=== PATIENT | female | born 1970 | race Caucasian/White ===

== ENCOUNTER 2017-03-20 22:02 | Emergency (ER) | payer MEDICAID, SELFPAY | END 2017-03-20 23:38 | disposition home or self-care (01) | PROVIDERS: Emergency Provider Emergency Medicine; Family Provider Family Medicine; Visit Provider Emergency Medicine | DX: R07.9 Chest pain, unspecified (principal); R06.02 Shortness of breath; Z88.8 Allergy status to other drugs, medicaments and biological substances; I34.1 Nonrheumatic mitral (valve) prolapse | CPT/HCPCS: 71020; 80053; 82550; 82553; 84484; 85025; 93005; 99283 ==

== ENCOUNTER → 2017-05-29 17:13 | Outpatient (CLI) | payer MEDICAID, SELFPAY ==
--- NOTE | 2017-05-29 | XR_ITS ---
XR shoulder RT min 2V HISTORY: ITS.REASON: PAIN IN RT SHOULDER ORDERING PHYSICIAN: Juan Turner MD PATIENT AGE: 47 years COMPARISON: None FINDINGS: No fracture or dislocation. No lytic or blastic change. There is subacromial stenosis which may result in impingement symptomatology. No significant arthritic change. IMPRESSION: Subacromial stenosis which may result in impingement symptomatology upon the rotator cuff. This may be confirmed with MRI if clinically warranted.
--- NOTE | 2017-05-29 | XR_ITS ---
XR foot RT min 3V HISTORY: Posttraumatic pain ITS.REASON: INJURY FROM FALL ORDERING PHYSICIAN: Juan Turner MD PATIENT AGE: 47 years COMPARISON: None FINDINGS: No fracture or dislocation. No lytic or blastic change. There is normal mineralization.. The joint spaces are well-preserved. No significant degenerative/arthritic changes. No erosive changes evident. IMPRESSION: Negative, no acute finding
== END ==
PROVIDERS: PCP Family Medicine; Visit Provider Family Medicine
DX: M79.674 Pain in right toe(s) (principal); M25.511 Pain in right shoulder
CPT/HCPCS: 73030; 73630

== ENCOUNTER 2017-06-15 18:20 | Emergency (ER) | payer MEDICAID, SELFPAY ==
[2017-06-15 19:53] VITALS: BP 160/70; PULSE 78; RESP 18; TEMP 36.6; O2SAT 98; BMI 47.3
[2017-06-15 19:59] LABS: UTC Strep Screen (Rapid) Negative (Negative)
--- NOTE | 2017-06-15 20:55 | HMH.EDUTC ---
[facility] [place] Impression: Eustachian tube dysfunction Qualifiers: Laterality: left Qualified Code(s): H69.82 - Other specified disorders of Eustachian tube, left ear Disposition: Home, Self-Care Condition on Discharge: Good Instructions: DI for Eustachian Tube Dysfunction-Adult Additional Instructions: Sleep elevated gargle warm salt water warm fluids to drink Start claritin, zyrtec or francine over the counter to help with your known allergies and the fluid behind the ear drum Start Flonase 2 sprays each nostril daily to help open the eustachian tube * * Your throat swab was sent for culture. Those results are typically sent to your primary care. Be sure to follow up in 2-3 days if no improvement so they can review those results and treat if necessary. If you don't have primary care, I recommend you get one but in the mean time, you will have to return to a walk in clinic. Referrals: Juan Turner MD [Primary Care Provider] - (For any new, worsening or persisting symptoms. May take 5-7 days to notice improvement.) Time of Disposition: 21:00 Medical Decision Making Vital Signs: 06/15/17 19:53 Temperature 98 F Temperature Source Temporal Artery Scan Pulse Rate [Brachial] 78 Respiratory Rate 18 Blood Pressure [Right Arm] 160/70 Blood Pressure Mean [Right Arm] 100 Blood Pressure Source [Right Arm] Automatic Cuff Blood Pressure Position [Right Arm] Sitting 02 Sat by Pulse Oximetry 98 - Lab Data Lab results reviewed: Yes: I reviewed the patient's lab results. Lab Results 06/15/17 19:49: Strep Scn Rapid Clinic Negative Orders (Tests/Meds): ORDERS Category Date Time Status Strep Screen Confirmation Stat Micro 06/15/17 19:49 Received - Emanuel Inquiry Pt receiving controlled substance: No [facility] [place] - General Stated complaint: left ear pain,cantor Time Seen by Provider: 06/15/17 20:55 Mode of Arrival: Ambulatory Source of Information: Patient Limitations: No Limitations Description of Symptoms (Recalled from Triage Doc. by RN): H/A, SORE THROAT, FEVER LT EAR PAIN SINCE MONDAY HEENT Symptoms (Recalled from RN notes): Yes Resp Symptoms (Recalled from RN notes): No Skin Symptoms (Recalled from RN notes): No MS Symptoms (Recalled from RN notes): No Functional Status (Recalled from RN notes): NA - History of Present Illness Provider Complaint: c/o headache, sore throat only on left and ear pain only on left x 2 days. hx of allergies but doesn't take medication like I know I should . Hasn't taken or tried anything for symptoms. Worse at night. Ear pain worse at times with swallowing or chewing. No known sick contacts. No fever. - Related Data Home Medications Medication Instructions Recorded Confirmed No Known Home Medications [No 06/15/17 06/15/17 Known Home Medications] Allergies Allergy/AdvReac Type Severity Reaction Status Date / Time prednisone [PREDNISONE] Allergy Unknown Unverified 03/28/17 15:31 - Worker's Comp Is this a Worker's Comp case?: No [facility] History I have reviewed the patient's past medical history: Yes Other Medical History: Reports: Other (allergies) Laterality Cases: Bilateral: Myringotomy (Ear Tubes) Other Surgeries: Yes: Tubal Ligation Comment: cholecystectomy, tubal ligation reversed - Social History Alcohol Intake: never - Psychiatric History Expresses thoughts of harming self/others: None Suicide Plan Description: No Plan ROS Obtained: Yes Systems reviewed as appropriate & no additional complaints - Constitutional Constitutional: Denies body ache, Denies chills, Denies fatigue, Denies fever(s), Denies poor appetite - Eyes Eyes: Denies eye discharge, Denies itchy eyes - ENT Ears, Nose, Mouth, and Throat: Reports as per HPI, Denies difficulty swallowing, Denies ear discharge, Denies hearing loss, Reports nasal congestion, Reports nasal discharge, Reports post nasal drip, Denies throat swelling - Cardiovascular Cardiovascul
--- NOTE | 2017-06-15 20:58 | ED_ITS ---
[facility] – [place] Disposition Clinical Impression: Eustachian tube dysfunction Qualifiers: Laterality: left Qualified Code(s): H69.82 - Other specified disorders of Eustachian tube, left ear Disposition: Home, Self-Care Condition on Discharge: Good Instructions: DI for Eustachian Tube Dysfunction-Adult Additional Instructions: Sleep elevated gargle warm salt water warm fluids to drink Start claritin, zyrtec or francine over the counter to help with your known allergies and the fluid behind the ear drum Start Flonase 2 sprays each nostril daily to help open the eustachian tube * * Your throat swab was sent for culture. Those results are typically sent to your primary care. Be sure to follow up in 2-3 days if no improvement so they can review those results and treat if necessary. If you don't have primary care , I recommend you get one but in the mean time, you will have to return to a walk in clinic. Referrals: Juan Turner MD [Primary Care Provider] - (For any new, worsening or persisting symptoms. May take 5-7 days to notice improvement.) Time of Disposition: 21:00 Medical Decision Making Vital Signs: 06/15/17 19:53 Temperature 98 F Temperature Source Temporal Artery Scan Pulse Rate [Brachial] 78 Respiratory Rate 18 Blood Pressure [Right Arm] 160/70 Blood Pressure Mean [Right Arm] 100 Blood Pressure Source [Right Arm] Automatic Cuff Blood Pressure Position [Right Arm] Sitting 02 Sat by Pulse Oximetry 98 - Lab Data Lab results reviewed: Yes: I reviewed the patient's lab results. Lab Results 06/15/17 19:49: Strep Scn Rapid Clinic Negative Orders (Tests/Meds): ORDERS Category Date Time Status Strep Screen Confirmation Stat Micro 06/15/17 19:49 Received - Emanuel Inquiry Pt receiving controlled substance: No [facility] – [place] HPI - General Stated complaint: left ear pain,cantor Time Seen by Provider: 06/15/17 20:55 Mode of Arrival: Ambulatory Source of Information: Patient Limitations: No Limitations Description of Symptoms (Recalled from Triage Doc. by RN): H/A, SORE THROAT, FEVER LT EAR PAIN SINCE MONDAY HEENT Symptoms (Recalled from RN notes): Yes Resp Symptoms (Recalled from RN notes): No Skin Symptoms (Recalled from RN notes): No MS Symptoms (Recalled from RN notes): No Functional Status (Recalled from RN notes): NA - History of Present Illness Provider Complaint: c/o headache, sore throat only on left and ear pain only on left x 2 days. hx of allergies but doesn't take medication like I know I should . Hasn't taken or tried anything for symptoms. Worse at night. Ear pain worse at times with swallowing or chewing. No known sick contacts. No fever. - Related Data Home Medications Medication Instructions Recorded Confirmed No Known Home Medications [No 06/15/17 06/15/17 Known Home Medications] Allergies Allergy/AdvReac Type Severity Reaction Status Date / Time prednisone [PREDNISONE] Allergy Unknown Unverified 03/28/17 15:31 - Worker's Comp Is this a Worker's Comp case?: No [facility] History I have reviewed the patient's past medical history: Yes Other Medical History: Reports: Other (allergies) Laterality Cases: Bilateral: Myringotomy (Ear Tubes) Other Surgeries: Yes: Tubal Ligation Comment: cholecystectomy, tubal ligation reversed - Social History Alcohol Intake: never - Psychia
[2017-06-15 21:00] VITALS: BP 160/70; PULSE 78; RESP 18; TEMP 36.6; O2SAT 98
== END 2017-06-15 21:01 | disposition home or self-care (01) ==
PROVIDERS: Emergency Provider Nurse Practitioner Family; PCP Family Medicine
DX: H69.82 Other specified disorders of Eustachian tube, left ear (principal); R51 Headache
CPT/HCPCS: 87880; 99202

== ENCOUNTER → 2018-05-17 15:49 | Outpatient (CLI) | payer MEDICAID, SELFPAY ==
--- NOTE | 2018-05-17 16:03 | MM_ITS ---
MM Dig screening mamm BI w/CAD ORDERING PHYSICIAN : GERARDO Wright PATIENT AGE: 48 years GENDER: Female COMPARISON: April INDICATION: Routine screening mammogram. 48-year-old. No hormones. No new complaints. Family history. Aunt breast cancer. TECHNIQUE: Standard CC and MLO images were obtained. R2 CAD reviewed. FINDINGS: Generalized fatty replacement. Low-density breast. . No new areas of concern. No dominant mass nor suspicious calcifications in either breast. RIGHT BREAST:No significant new areas of concern The small nodular density deep lateral right breast measures 4.25 mm in size. This measures the same as on previous studies. LEFT BREAST:No significant new areas of concern Again the intramammary lymph nodes the deep axillary tail the left breast are observed but if not changed significant since studies dating back to 2012. Follow-up in one year recommended & adequate IMPRESSION: ...... No significant new findings. Bilateral follow-up in one year recommended. Low-density breast. Stable small intramammary nodes deep breast bilaterally BI-RADS Category: 2 Benign Finding(s) RECOMMENDED FOLLOW-UP: 1YR 1 YEAR FOLLOW-UP (A letter has been sent to the patient regarding results of the study.)
== END ==
PROVIDERS: PCP Physician Assistant; Visit Provider Physician Assistant
DX: Z12.31 Encounter for screening mammogram for malignant neoplasm of breast (principal)
CPT/HCPCS: 77067

== ENCOUNTER → 2018-10-17 16:41 | Outpatient (CLI) | payer MEDICAID, SELFPAY ==
--- NOTE | 2018-10-17 16:45 | XR_ITS ---
EXAM: XR lumbar spine min 4V HISTORY: ITS.REASON: ACUTE LOW BACK PAIN ORDERING PHYSICIAN: GERARDO Wright PATIENT AGE: 48 years COMPARISON: None FINDINGS: Normal alignment. No fracture or dislocation. No lytic or blastic change. There are mild degenerative changes with in plate osteophytes and slight decrease in the disc space at L2-L3 and L3-L4. There are bilateral tubal ligation clips. Unremarkable appearing SI joints IMPRESSION: Mild degenerative changes, no acute finding
== END ==
PROVIDERS: PCP Physician Assistant; Visit Provider Physician Assistant
DX: M54.5 Low back pain (principal)
CPT/HCPCS: 72110

== ENCOUNTER → 2018-10-23 12:53 | Outpatient (CLI) | payer MEDICAID, SELFPAY ==
--- NOTE | 2018-10-23 12:56 | US_ITS ---
US transvaginal HISTORY: ITS.REASON: IRREGULAR PERIODS ORDERING PHYSICIAN: GERARDO Wright PATIENT AGE: 48 years Comparison: None FINDINGS: The uterus is 9 x 4.7 x 5.7 cm. Endometrium is thickened at 14 mm. No uterine mass evident. The left ovary is 2.4 x 1.8 cm and contains a 1.7 cm cyst. Right ovary is unremarkable at 2.4 x 1.4 cm. No cul-de-sac fluid. IMPRESSION: Bulky uterus with thickened endometrium
== END ==
PROVIDERS: PCP Physician Assistant; Visit Provider Physician Assistant
DX: N92.6 Irregular menstruation, unspecified (principal)
CPT/HCPCS: 76830

== ENCOUNTER → 2018-11-21 17:23 | Outpatient (CLI) | payer MEDICAID, SELFPAY ==
[2018-11-21 17:59] LABS: Basophils % 0.4 % (0.1-2.0); Eosinophils # 0.1 K/mm3 (0.0-0.4); Eosinophils % 1.7 % (0.1-12.0); Hematocrit 41.1 % (37.0-47.0); Hemoglobin 13.3 g/dL (12.2-16.2); Lymphocytes # 2.4 K/mm3 (0.7-4.5); Lymphocytes % 31.2 % (10-50); Mean Corpuscular HGB Conc 32.3 g/dL (31.8-35.4); Mean Corpuscular Hemoglobin 27.5 pg (27.0-31.2); Mean Corpuscular Volume 85.1 fl (81-99); Mean Platelet Volume 6.5 fl (7.4-10.4); Monocytes # 0.3 K/mm3 (0.1-1.0); Neutrophils # 4.8 K/mm3 (1.8-7.8); Neutrophils % 62.7 % (37.0-80.0); Platelet Count 324 K/mm3 (142-424); Red Blood Count 4.83 M/mm3 (4.20-5.40); Red Cell Distribution Width 13.7 % (11.5-17.5); White Blood Count 7.6 K/mm3 (4.8-10.8)
[2018-11-21 19:44] LABS: HCG Qualitative, Serum Negative (Negative)
[2018-11-21 19:54] LABS: Anion Gap 12.1 mEq/L (5-15); Blood Urea Nitrogen 19 mg/dL (7-18); Calcium 9.1 mg/dL (8.5-10.1); Carbon Dioxide 29 mmol/L (21.0-32.0); Chloride 102 mmol/L (98-107); Creatinine,Serum 0.74 mg/dL (0.55-1.02); Estimated Glomerular Filt Rate 84 ml/min (>60); GFR (African American) 102 ML/MIN (>60); Glucose 79 mg/dL (74-106); Potassium 4.1 mmoL/L (3.5-5.1); Sodium 139 mmol/L (136-145); T4 (Thyroxine) 8.9 ug/dl (4.7-13.3); Thyroid Stimulating Hormone 2.65 uIU/ml (0.358-3.740); Triiodothryronine (T3) Uptake 34 % (31-39)
== END ==
PROVIDERS: Visit Provider Nurse Practitioner Obstetrics & Gynecology
DX: N92.0 Excessive and frequent menstruation with regular cycle (principal); R10.2 Pelvic and perineal pain; R53.82 Chronic fatigue, unspecified
CPT/HCPCS: 36415; 80048; 84436; 84443; 84479; 84703; 85025

== ENCOUNTER → 2018-12-26 11:17 | Outpatient (CLI) | payer MEDICAID, SELFPAY ==
[2018-12-26 11:30] LABS: Basophils % 0.6 % (0.1-2.0); Eosinophils # 0.2 K/mm3 (0.0-0.4); Eosinophils % 2.6 % (0.1-12.0); Hemoglobin 13.9 g/dL (12.2-16.2); Lymphocytes # 2.3 K/mm3 (0.7-4.5); Lymphocytes % 34.8 % (10-50); Mean Corpuscular HGB Conc 32.3 g/dL (31.8-35.4); Mean Corpuscular Hemoglobin 27.6 pg (27.0-31.2); Mean Corpuscular Volume 85.4 fl (81-99); Mean Platelet Volume 6.7 fl (7.4-10.4); Monocytes # 0.2 K/mm3 (0.1-1.0); Monocytes % 3.5 % (1.7-9.3); Neutrophils # 3.9 K/mm3 (1.8-7.8); Neutrophils % 58.4 % (37.0-80.0); Platelet Count 328 K/mm3 (142-424); Red Blood Count 5.03 M/mm3 (4.20-5.40); Red Cell Distribution Width 13.2 % (11.5-17.5); White Blood Count 6.7 K/mm3 (4.8-10.8)
[2018-12-26 12:39] LABS: Urine Pregnancy, HCG Qual. Negative (Negative)
[2018-12-26 12:50] LABS: Anion Gap 10.6 mEq/L (5-15); Blood Urea Nitrogen 13 mg/dL (7-18); Calcium 9.7 mg/dL (8.5-10.1); Carbon Dioxide 32 mmol/L (21.0-32.0); Chloride 100 mmol/L (98-107); Creatinine,Serum 0.69 mg/dL (0.55-1.02); Estimated Glomerular Filt Rate 92 ml/min (>60); GFR (African American) 111 ML/MIN (>60); Glucose 91 mg/dL (74-106); Potassium 4.6 mmoL/L (3.5-5.1); Sodium 138 mmol/L (136-145)
== END ==
PROVIDERS: Visit Provider Nurse Practitioner Obstetrics & Gynecology
DX: Z01.818 Encounter for other preprocedural examination (principal); N92.0 Excessive and frequent menstruation with regular cycle
CPT/HCPCS: 36415; 80048; 81025; 85025

== ENCOUNTER → 2019-04-25 06:20 | Outpatient (CLI) | payer OTHER, SELFPAY ==
--- NOTE | 2019-04-25 06:35 | CA_ITS ---
APPROVED REPORT Exam: Pharmacologic Technologist: Cherelle Cline, Ht: 5 ft 4 in Wt: 263 lbs BSA: 2.20 m2 HR: 64 bpm BP: 129/83 mmHg Rhythm: NORMAL SINUS Medical History Medications: Omeprazole,,,,, PaROXETINE,,,,, Nitro,,,,, MethACARBANOL,,,,, Allergies: PREDNISONE Cardiac Risk Factors: FHX of CAD Stress Test Details Test: Thai HR Resting HR: 82 bpm Max Heart Rate (APMHR): 174 bpm Max HR Achieved: 171 bpm Target HR (85% APMHR): 147 bpm % of APMHR: 98 Recovery HR: 102 bpm BP Resting BP: 144.0/74.0 mmHg Max BP: 180.0/78.0 mmHg Recovery BP: 161.0/67.0 mmHg ECG Resting ECG: NSR Clinical Reason for Termination: Dyspnea Exercise duration: 05:32 min Highest Stage Achieved: Exercise capacity: 7.0 METs Stress ECG Conclusion TEST WAS STOPPED DUE TO SOA. PATIENT EXERCISED 5 MIN 32 SECONDS. METS = 7.0. MAX HEART RATE 171 BPM. NO CHEST PAIN. OCCASIONAL PVC. <1.5MM ST SEGEMNT CHANGES. POOR EXERCISE TOLERANCE. NEGATIVE STRESS. Electronically signed by : Bruce Roth, 04/25/2019 12:49:42
--- NOTE | 2019-04-25 06:35 | NM_ITS ---
APPROVED REPORT Exam: Nuclear Stress Test Indication: chest pain, fatigue, soa Patient Location: Outpatient Stress Tech: Shanon Ruiznkson [place] Tech:GISELL Chirinos RT(R)(N) Ht: 5 ft 4 in Wt: 263 lbs Bra Size: 40 d HR: 64 bpm BP: 129/83 mmHg BSA: 2.20 m2 BMI: 45.1 History: chest pain, fatigue, soa Procedure: Patient exercised on Thai protocol 5.32 minutes and sec, resting heart rate 64 bpm, resting blood pressure 129/83 mmHg, with exercise maximum heart rate achived was 171 bpm which is Greater than 85 % of the maximum predicted heart rate and blood pressure was 180/78 mmHg. Patient denied any complaint of chest pain. Patient has Adequate exercise capacity, achieved 7.0 METs of workload on treadmill, the blood pressure response to exercise was Normal. Electrocardiogram Resting electrocardiogram showed sinus rhythm, with exercise there is less than 1.[address] segment depression noted from the baseline EKG. The EKG portion of the exercise Myoview is negative for ischemia. Cardiac Stress and Resting SPECT Images: Cardiac Stress and Resting SPECT images were obtained using technetium 99m Myoview 30.9 mCi stress and 10.70 mCi at rest. Gated SPECT with analysis of segmental wall motion and calculation of the ejection fraction also done. Cardiac stress and resting SPECT images show uniform myocardial activity without segmental perfusion abnormality, computer derived ejection fraction is 64% with no regional wall motion abnormality, right ventricle is normal size and contractility. Conclusion: 1. The EKG portion of the exercise Myoview is negative for ischemia, patient has adequate exercise capacity achieved 7 mets of workload on treadmill, the blood pressure response to exercise was normal test was stopped due to shortness of breath. 2. No scintigraphic evidence of reversible ischemia seen at this level of exercise, computer derived ejection fraction 64% with no regional wall motion abnormality, right ventricle is normal size and contractility. 3. Normal exercise Myoview study. Electronically signed by : Bruce Roth, 04/25/2019 12:52:52
--- NOTE | 2019-04-25 09:40 | HMH.ITSHM ---
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 [] nitro omeprazol methocarbam paroxetine
== END ==
PROVIDERS: PCP Family Medicine; Visit Provider Urology
DX: R07.2 Precordial pain (principal); R06.09 Other forms of dyspnea; R94.31 Abnormal electrocardiogram [ECG] [EKG]; K21.9 Gastro-esophageal reflux disease without esophagitis; K44.9 Diaphragmatic hernia without obstruction or gangrene; Z82.49 Family history of ischemic heart disease and other diseases of the circulatory system
CPT/HCPCS: 78452; 93017; A9502

== ENCOUNTER 2019-05-09 17:30 | Outpatient (RCR) | payer OTHER, SELFPAY ==
--- NOTE | 2019-04-23 18:17 | HMH.PTOPEV ---
PT Outpatient Evaluation Rehab PT Outpatient Evaluation Start: 04/23/19 18:01 Freq: Status: Active Protocol: Document 04/23/19 18:03 TAE (Rec: 04/23/19 18:15 TAE [id number]) Electronically Signed By Trey Benson, PT 04/23/19 18:03 Outpatient Therapy Subjective History Subjective History Patient is a 48 year old female presenting to outpatient PT with reports of LBP with RLE intermittent radicular symptoms to R buttock. Pt reports that syptoms started approximately 3 years ago, but have progressively gotten worse over the past 6 months. No specific mechanism of injury to report. Symptoms worse with lumbar flexion idicating extension bias. Comorbidites include hx of tubal ligation, hiatal hernia, HTN, HLD and cholecystectomy. Chief Complaint Pain Symptom Type Ache,Sharp Symptoms Relieved By Rest/Positioning,Prescription Meds Symptoms Aggravated By Bending/Stooping,Walking Prior Functional Limitations None Current Functional Limitations Lifting,Housework,Sleeping, Sitting,Squatting,Recreation Activity,Walking,Bending/ Stooping Symptom Description Intermittent Level of pain today (0-10) 0 Pain scale - at its best (0-10) 0 Pain scale - at its worst (0-10) 8 Lumbopelvic Eval Posture Thoracic Spine Posture Standing Position Increased Kyphosis Lumbar Spine Posture Standing Position Increased Lordosis Assistive device Assistive Devices None / NA Palapation tenderness bilateral paraspinal tenderness Yes: L3-5 3/4 buttock tenderness Yes: R 3/4 Accessory Movement L3 right L4 right L5 right S1 right Range of Motion Lumbar Spine Active Flexion Range of 64 Motion (degrees) Lumbar Spine Active Extension Range of 14 Motion (degrees) Left Lumbar Spine Lateral Flexion Active 22 Range of Motion (degrees) Right Lumbar Spine Lateral Flexion 24 Active Range of Motion (degrees) Manual Muscle Test Bilateral Knee Extension Strength Grade 5 Normal Knee Flexion Strength Grade 5 Normal Hip Flexion Strength Grade 5
== END 2019-05-09 17:35 | disposition home or self-care (01) ==
LOC: PT 17:30
PROVIDERS: PCP Family Medicine; Visit Provider Physician Assistant
DX: M54.5 Low back pain (principal)
CPT/HCPCS: 97010; 97012; 97014; 97110; 97163; G0283

== ENCOUNTER → 2019-11-05 17:57 | Outpatient (CLI) | payer OTHER, SELFPAY ==
[2019-11-08 17:59] LABS: H. pylori Stool Ag, EIA Negative (Negative)
== END ==
PROVIDERS: Visit Provider Physician Assistant
DX: K21.9 Gastro-esophageal reflux disease without esophagitis (principal)
CPT/HCPCS: 87338

== ENCOUNTER 2019-12-19 18:59 | Emergency (ER) | payer OTHER, SELFPAY ==
--- NOTE | 2019-12-19 19:11 | XR_ITS ---
PROCEDURE: XR ELBOW LT MIN 3V CLINICAL INDICATION: fall Posttraumatic pain COMPARISON: CR ELBR3 ELBOW-RT-3 VIEWS from 06/20/2013 CR ELBR3 ELBOW-RT-3 VIEWS from 11/23/2013 CR ELBR3 ELBOW-RT-3 VIEWS from 12/28/2013 CR XR HUMERUS LT from 12/19/2019 FINDINGS: No fracture or dislocation. No lytic or blastic change. There is normal mineralization. The joint spaces are well-preserved. No significant degenerative/arthritic changes. No erosive changes evident. Other findings:There is a supracondylar process present as a normal variant IMPRESSION: No acute findings. Dictated by: Rik Nuñez MD 12/20/2019 05:25 Rik Nuñez MD in [place] 12/20/2019 05:25
[2019-12-19 19:45] VITALS: BP 124/77; PULSE 78; RESP 14; TEMP 36.8; O2SAT 98; BMI 44.6
--- NOTE | 2019-12-19 19:50 | HMH.EDUTC ---
[facility] – [place] Disposition Clinical Impression: Left upper arm injury Qualifiers: Encounter type: initial encounter Qualified Code(s): S49.92XA - Unspecified injury of left shoulder and upper arm, initial encounter Disposition: Home, Self-Care Condition on Discharge: Good Instructions: How to Use a Sling, How To Perform RICE (Rest, Ice, Compress, Elevate) Additional Instructions: *RICE, Rest the extremity, Ice 15-20 minutes 3-4 times daily, Compress- wear the raghu wrap as discussed as much as possible to help reduce swelling and pain, Elevate the extremity when at rest *Raghu wrap is for support and help control swelling, use it except in the shower. Be sure that is not to tight but not to loose either *Elevate when resting *Ibuprofen every 6-8 hours as needed for pain an inflammation. If need something more can take Tylenol in between doses of Ibuprofen to help Immediately follow up with your family doctor for new or worsening of symptoms, or no noticeable improvement over the next 3-5 days Call back to the [facility] tomorrow for the official Radiology reading of your xray Follow up with Family Doctor if no improvement FOllow up with Orhtopedics if needed Referrals: Aria Rodrigez PA [Primary Care Provider] - As needed Olivia Rao MD [Physician] - Time of Disposition: 19:52 Medical Decision Making - Emanuel Inquiry Pt receiving controlled substance: No Emanuel was queried for this patient: No Vital Signs: 12/19/19 19:45 Temperature 98.3 F Temperature Source Oral Pulse Rate [Right Brachial] 78 Respiratory Rate 14 Blood Pressure [Right Arm] 124/77 Blood Pressure Mean [Right Arm] 92 Blood Pressure Source [Right Arm] Automatic Cuff Blood Pressure Position [Right Arm] Sitting 02 Sat by Pulse Oximetry 98 Oxygen Delivery Method Room Air Orders (Tests/Meds): ORDERS Category Date Time Status XR elbow LT min 3V Stat Exams 12/19/19 19:11 Taken XR humerus LT Stat Exams 12/19/19 19:11 Taken - Radiology Data #1 Image(s): Elbow Image Reviewed: Yes I reviewed the patient's radiology image w/the ED provider Preliminary Findings: No Fracture Seen #2 Image(s): Humerus Image Reviewed: Yes I reviewed the patient's radiology image w/the ED provider Preliminary Findings: No Fracture Seen [facility] – [place] HPI - General Stated complaint: ao [id number] fell injured left arm Time Seen by Provider: 12/19/19 19:45 Mode of Arrival: Ambulatory Source of Information: Patient Limitations: No Limitations Description of Symptoms (Recalled from Triage Doc. by RN): PATIENT C/O FELL ON HER LEFT ARM AT APPROX 1814 TODAY HEENT Symptoms (Recalled from RN notes): No Resp Symptoms (Recalled from RN notes): No Skin Symptoms (Recalled from RN notes): No MS Symptoms (Recalled from RN notes): Yes Functional Status (Recalled from RN notes): WNL - History of Present Illness Provider Complaint: Patient states that she was stepping up on curb while packing a case of water and tripped and landed on her left arm States that ever since she has been having pain in her left elbow and upper arm when she moves it so she come in to get it checked - Related Data Home Medications Medication Instructions Recorded Confirmed multivitamin 1 tab PO DAILY 11/20/19 11/20/19 propranolol 60 mg capsule,24 60 mg PO DAILY cap 11/20/19 11/20/19 hr,extended release Previous Rx's Medication Instructions Recorded omeprazole 40 mg capsule,delayed 40 mg PO DAILY PRN #30 cap 11/28/19 release Allergies Allergy/AdvReac Type Severity Reaction Status Date / Time prednisone [PREDNISONE] Allergy Unknown Verified 11/20/19 08:37 - Worker's Comp Is this a Worker's Comp case?: No [facility] History - Hepatitis A Screen Drug use history?: No High risk sexual behaviors?: No History of sexually transmitted infection?: No Currently employed?: No Childcare worker?: No Do you have indoor plumbing?: Yes Do you have electricity?: Yes Attestation statement::
[2019-12-19 20:11] VITALS: BP 124/77; PULSE 78; RESP 14; TEMP 36.8; O2SAT 98
== END 2019-12-19 20:12 | disposition home or self-care (01) ==
PROVIDERS: Emergency Provider Nurse Practitioner; PCP Physician Assistant
DX: S49.92XA Unspecified injury of left shoulder and upper arm, initial encounter (principal); W01.0XXA Fall on same level from slipping, tripping and stumbling without subsequent striking against object, initial encounter; Y92.89 Other specified places as the place of occurrence of the external cause; K21.9 Gastro-esophageal reflux disease without esophagitis; I10 Essential (primary) hypertension; Z90.49 Acquired absence of other specified parts of digestive tract; Z82.49 Family history of ischemic heart disease and other diseases of the circulatory system
CPT/HCPCS: 73060; 73080; 99201; 99203

== ENCOUNTER 2020-05-09 12:30 | Emergency (ER) | payer OTHER, SELFPAY ==
[2020-05-09 12:35] VITALS: BP 128/84; PULSE 68; RESP 14; TEMP 36.6; O2SAT 99; BMI 39.9
--- NOTE | 2020-05-09 13:21 | HMH.EDUTC ---
[facility] [place] Clinical Impression: COVID-19 virus test result unknown, Nausea Disposition: Home, Self-Care Condition on Discharge: Good Instructions: DI for COVID-19 (Suspected or Confirmed ), Preventing the Spread of Coronavirus Discharge Instructions Additional Instructions: increase fluids tylenol or motrin for pain or fever follow up with pcp this week if symptoms worsen or no improvement return or be seen in ed Prescriptions: ondansetron HCL [Zofran 4mg Tab*] 4 mg PO TIDP PRN 5 Days #14 tab PRN Reason: Nausea Transmission Status: Pending to [id number] Referrals: Aria Rodrigez PA [Primary Care Provider] - Time of Disposition: 13:26 Medical Decision Making - Emanuel Inquiry Pt receiving controlled substance: No Vital Signs: 05/09/20 12:35 Temperature 97.8 F Temperature Source Oral Pulse Rate [Right Brachial] 68 Respiratory Rate 14 Blood Pressure [Right Arm] 128/84 Blood Pressure Mean [Right Arm] 98 Blood Pressure Source [Right Arm] Automatic Cuff Blood Pressure Position [Right Arm] Sitting 02 Sat by Pulse Oximetry 99 Oxygen Delivery Method Room Air Orders (Tests/Meds): ORDERS Category Date Time Status Covid-19 Nasal PCR ([facility]) Routine Lab 05/09/20 12:34 Received [facility] [place]PI - General Chief complaint: Urgent Treatment Center Stated complaint: Nausea;Headache;weak Time Seen by Provider: 05/09/20 13:21 Mode of Arrival: Ambulatory Source of Information: Patient Limitations: No Limitations Description of Symptoms (Recalled from Triage Doc. by RN): PATEINT C/O HEADACHE AND NAUSEA HEENT Symptoms (Recalled from RN notes): No Resp Symptoms (Recalled from RN notes): No Skin Symptoms (Recalled from RN notes): No MS Symptoms (Recalled from RN notes): Yes Functional Status (Recalled from RN notes): WNL - History of Present Illness Provider Complaint: 50 yr old female presents for cantor and nausea for 3 days. Pt states it is like her normal cantor with nausea. pt states she just wants a covid test to make sure she does not have covid - Related Data Home Medications Medication Instructions Recorded Confirmed multivitamin 1 tab PO DAILY 11/20/19 11/20/19 propranolol 60 mg capsule,24 60 mg PO DAILY cap 11/20/19 11/20/19 hr,extended release Previous Rx's Medication Instructions Recorded omeprazole 40 mg capsule,delayed 40 mg PO DAILY PRN #30 cap 11/28/19 release ondansetron HCL [Zofran 4mg Tab*] 4 mg PO TIDP PRN 5 Days #14 tab 05/09/20 Allergies Allergy/AdvReac Type Severity Reaction Status Date / Time prednisone [PREDNISONE] Allergy Unknown Verified 11/20/19 08:37 - Worker's Comp Is this a Worker's Comp case?: No [facility] History - Hepatitis A Screen Drug use history?: No High risk sexual behaviors?: No History of sexually transmitted infection?: No Currently employed?: No Childcare worker?: No Do you have indoor plumbing?: Yes Do you have electricity?: Yes Attestation statement:: This patient has been screened for Hepatitis A risk factors. I have reviewed the patient's past medical history: Yes Medical History: Reports:: Gastroesophageal Reflux Disease(GERD), Hiatal Hernia Denies:: Cancer, Diabetes Mellitus Type 1, Diabetes Mellitus Type 2, Internal Pacemaker, MRSA, Seizures Other Medical History: Reports: Other. Denies: Blood Transfusion Reaction Laterality Cases: Bilateral: Myringotomy (Ear Tubes) Other Surgeries: Yes: Cholecystectomy, Tubal Ligation. No: Pacemaker Amputation: No Fractures: No Comment: tubal ligation reversed - Social History Smoking Status: Never smoker Alcohol Intake: never Substance Use Type: denies use Occupational Status: other Housing: house Household Members: spouse, family Family Hx:: Cancer, Diabetes, Hypertension Comment: Father-[place], CABG@43 ROS Obtained: Yes Systems reviewed as appropriate & no additional complaints - Constitutional Constitutional: Reports system reviewed and no additional complaints, except as
[2020-05-09 13:32] VITALS: BP 128/84; PULSE 68; RESP 14; TEMP 36.6; O2SAT 99
== END 2020-05-09 13:40 | disposition home or self-care (01) ==
PROVIDERS: Emergency Provider Nurse Practitioner Family; PCP Physician Assistant
DX: Z20.822 Contact with and (suspected) exposure to COVID-19 (principal); R51.9 Headache, unspecified; K21.9 Gastro-esophageal reflux disease without esophagitis
CPT/HCPCS: 99202; G0463; U0003

== ENCOUNTER 2020-09-15 16:37 | Emergency (ER) | payer OTHER, SELFPAY ==
[2020-09-15 16:40] VITALS: BP 108/65; PULSE 86; RESP 21; TEMP 36.8; O2SAT 97; BMI 37.5
--- NOTE | 2020-09-15 17:21 | HMH.EDUTC ---
[facility] [place] Disposition Clinical Impression: Poison laura dermatitis Disposition: Home, Self-Care Condition on Discharge: Good Instructions: Summertime Rashes: Poison Laura, [place], and [place], Poison Laura, Poison [place], Poison [place] Additional Instructions: Soothing measure options: Oatmeal baths Cool, wet compresses Ice packs Topical menthol and phenol (calamine lotion) compounds Topical astringents like witch radha may help Oral benadryl may help with itching Follow up with your Family Doctor if no improvement or any worsening of symptoms Referrals: Aria Rodrigez PA [Primary Care Provider] - As needed Time of Disposition: 17:32 Medical Decision Making - Emanuel Inquiry Pt receiving controlled substance: No Emanuel was queried for this patient: No Vital Signs: 09/15/20 16:40 Temperature 98.2 F Temperature Source Oral Pulse Rate [Right Brachial] 86 Respiratory Rate 21 Blood Pressure [Right Arm] 108/65 L Blood Pressure Mean [Right Arm] 79 Blood Pressure Source [Right Arm] Automatic Cuff Blood Pressure Position [Right Arm] Sitting 02 Sat by Pulse Oximetry 97 Oxygen Delivery Method Room Air Medical Decision Narrative: Patient reports that she is allergic to Prednisone therefore recommended topical measures to help with rash like Calamine lotion, burrows solution etc [facility] [place] HPI - General Stated complaint: possible poison laura or oak under breast and side Time Seen by Provider: 09/15/20 17:21 Mode of Arrival: Ambulatory Source of Information: Patient Limitations: No Limitations Description of Symptoms (Recalled from Triage Doc. by RN): PATIENT C/O RASH TO BILATERL SIDES AND UNDER BREASTS X 4 DAYS HEENT Symptoms (Recalled from RN notes): No Resp Symptoms (Recalled from RN notes): No Skin Symptoms (Recalled from RN notes): Yes MS Symptoms (Recalled from RN notes): No Functional Status (Recalled from RN notes): WNL - History of Present Illness Provider Complaint: Patient state that she and her was cleaning out some weeds and he got poison laura and now she is breaking out under both breast and on her side States that she has been using calamine lotion but it hasnt helped much and didnt know if she could take anything else - Related Data Home Medications Medication Instructions Recorded Confirmed multivitamin 1 tab PO DAILY 11/20/19 11/20/19 propranolol 60 mg capsule,24 60 mg PO DAILY cap 11/20/19 11/20/19 hr,extended release Previous Rx's Medication Instructions Recorded omeprazole 40 mg capsule,delayed 40 mg PO DAILY PRN #30 cap 11/28/19 release ondansetron HCL [Zofran 4mg Tab*] 4 mg PO TIDP PRN 5 Days #14 tab 05/09/20 Allergies Allergy/AdvReac Type Severity Reaction Status Date / Time prednisone [PREDNISONE] Allergy Unknown Verified 11/20/19 08:37 - Worker's Comp Is this a Worker's Comp case?: No [facility] History - Hepatitis A Screen Drug use history?: No High risk sexual behaviors?: No History of sexually transmitted infection?: No Currently employed?: No Childcare worker?: No Do you have indoor plumbing?: Yes Do you have electricity?: Yes Attestation statement:: This patient has been screened for Hepatitis A risk factors. I have reviewed the patient's past medical history: Yes Medical History: Reports:: Gastroesophageal Reflux Disease(GERD), Hiatal Hernia Denies:: Cancer, Diabetes Mellitus Type 1, Diabetes Mellitus Type 2, Internal Pacemaker, MRSA, Seizures Other Medical History: Reports: Other. Denies: Blood Transfusion Reaction Laterality Cases: Bilateral: Myringotomy (Ear Tubes) Other Surgeries: Yes: Cholecystectomy, Tubal Ligation. No: Pacemaker Amputation: No Fractures: No Comment: tubal ligation reversed - Social History Smoking Status: Never smoker Alcohol Intake: never Substance Use Type: denies use Occupational Status: other Housing: house Household Members: spouse, family Family Hx:: Cancer, Diabetes, Hypertension Comment: Father-[place], CABG@4
[2020-09-15 17:32] VITALS: BP 108/65; PULSE 86; RESP 21; TEMP 36.8; O2SAT 97
== END 2020-09-15 17:35 | disposition home or self-care (01) ==
PROVIDERS: Emergency Provider Nurse Practitioner; PCP Physician Assistant
DX: L23.7 Allergic contact dermatitis due to plants, except food (principal); K21.9 Gastro-esophageal reflux disease without esophagitis
CPT/HCPCS: 99202; G0463

== ENCOUNTER → 2020-10-28 15:44 | Outpatient (CLI) | payer OTHER, SELFPAY ==
--- NOTE | 2020-10-28 15:56 | XR_ITS ---
PROCEDURE: XR ANKLE RT MIN 3V CLINICAL INDICATION: ACUTE RT ANKLE PAIN COMPARISON: No exams were available for comparison FINDINGS: No acute fracture or dislocations. The ankle mortise is congruent and the lateral clear space is preserved. Bone density is normal. Calcaneal spur is noted. No significant soft tissue abnormality is noted. IMPRESSION: No acute abnormality. Dictated by: Evelia Ge 10/29/2020 14:38 Evelia Ge in OV 10/29/2020 14:38
== END ==
PROVIDERS: PCP Family Medicine; Visit Provider Physician Assistant
DX: M25.571 Pain in right ankle and joints of right foot (principal)
CPT/HCPCS: 73610

== ENCOUNTER → 2021-04-08 20:59 | Outpatient (CLI) | payer OTHER, SELFPAY | PROVIDERS: Visit Provider Nurse Practitioner Family | DX: Z20.822 Contact with and (suspected) exposure to COVID-19 (principal) | CPT/HCPCS: C9803; U0003; U0005 ==

== ENCOUNTER → 2021-04-21 17:34 | Outpatient (CLI) | payer OTHER, SELFPAY | PROVIDERS: Visit Provider Nurse Practitioner | DX: Z20.822 Contact with and (suspected) exposure to COVID-19 (principal) | CPT/HCPCS: C9803; U0003; U0005 ==

== ENCOUNTER → 2021-04-27 14:21 | Outpatient (CLI) | payer OTHER, SELFPAY | PROVIDERS: PCP Family Medicine; Visit Provider Nurse Practitioner | DX: U07.1 COVID-19 (principal) | CPT/HCPCS: C9803; U0003; U0005 ==

== ENCOUNTER → 2021-05-24 15:42 | Outpatient (CLI) | payer OTHER, SELFPAY ==
--- NOTE | 2021-05-24 15:42 | MR_ITS ---
PROCEDURE INFORMATION: Exam: MR Right Lower Extremity Joint Without and With Contrast; Ankle Exam date and time: 05/24/2021 3:42 PM Age: 51 years old Clinical indication: Pain; Ankle; Right; Additional info: Right ankle pain. Swelling in ankle. Medial sided ankle pain with heel pain [id number]. No injury or trauma. 20ml prohance given. TECHNIQUE: Imaging protocol: MR of the Right lower extremity without and with contrast. Exam focused on the ankle. Contrast material: PROHANCE; Contrast volume: 20 ml; Contrast route: IV; COMPARISON: CR XR ANKLE RT MIN 3V 10/28/2020 4:07 PM FINDINGS: Bones and cartilage: No fracture or suspicious marrow signal. Limited calcaneal spurring. Limited enhancement around the plantar fascia at its origin particularly of the lateral band consistent with limited plantar fasciitis. No focal tear or significant fibromatosis. No other acute disease seen. As above. Joint spaces: No joint effusion. LIGAMENTS: Distal tibiofibular syndesmosis: Unremarkable. No tear. Anterior talofibular ligament: Unremarkable. No tear. Posterior talofibular ligament: Unremarkable. No tear. Calcaneofibular ligament: Unremarkable. No tear. Deltoid ligament complex: Unremarkable. No tear. TENDONS: Flexor tendons of foot: Unremarkable as visualized. Tibialis posterior tendon: Unremarkable as visualized. Peroneal tendons: Unremarkable as visualized. Extensor tendons of foot: Unremarkable as visualized. Tibialis anterior tendon: Unremarkable as visualized. Achilles tendon: Unremarkable as visualized. Tarsal canal (Sinus tarsi): Unremarkable. Normal signal of the fat. Tarsal tunnel: Unremarkable. Muscles: Unremarkable. Soft tissues: No mass or suspicious contrast enhancement. Plantar fascia: See Bones and cartilage finding. IMPRESSION: 1. No fracture or suspicious marrow signal. 2. No mass or suspicious contrast enhancement. 3. Limited calcaneal spurring. Limited enhancement around the plantar fascia at its origin particularly of the lateral band consistent with limited plantar fasciitis. No focal tear or significant fibromatosis. 4. No other acute disease seen. As above.
== END ==
PROVIDERS: PCP Family Medicine; Visit Provider Podiatrist
DX: M25.571 Pain in right ankle and joints of right foot (principal); M25.371 Other instability, right ankle; G89.29 Other chronic pain; M76.61 Achilles tendinitis, right leg; M76.71 Peroneal tendinitis, right leg
CPT/HCPCS: 73723; A9576

== ENCOUNTER 2021-06-07 17:42 | Emergency (ER) | payer OTHER, SELFPAY ==
[2021-06-07 19:32] VITALS: BP 131/81; PULSE 75; RESP 16; TEMP 37; O2SAT 99; BMI 37.9
--- NOTE | 2021-06-07 19:38 | HMH.EDUTC ---
[facility] [place] Disposition Clinical Impression: Viral upper respiratory tract infection Disposition: Home, Self-Care Condition on Discharge: Good Instructions: DI for Viral Upper Respiratory Infection -- Adult, DI for Nasal Congestion Additional Instructions: *Monitor Temp, Over the counter Motrin or Tylenol as directed/as needed Tylenol every 4 hours and Motrin every 6 hours (as long as your family doctor has told you that you can take it) for fever or pain. and straight to ER if unable to lower temp less than 101.0 after medication given *Warm salt water gargles may help to soothe the throat *Throat Lozenges *Warm fluids like tea with honey may help to soothe the throat *Sleep elevated *Humidifier/Vaporizer Return if needed Follow up IMMEDIATELY for new or worsening symptoms or no Noticeable improvement over the next 48-72 hours. 911 for difficulty breathing or swallowing Referrals: Juan Turner MD [Primary Care Provider] - As needed Time of Disposition: 19:41 Medical Decision Making - Emanuel Inquiry Pt receiving controlled substance: No Emanuel was queried for this patient: No Vital Signs: 06/07/21 19:32 Temperature 98.6 F Temperature Source Oral Pulse Rate [Right Radial] 75 Respiratory Rate 16 Blood Pressure [Right Arm] 131/81 Blood Pressure Mean [Right Arm] 97 Blood Pressure Source [Right Arm] Automatic Cuff Blood Pressure Position [Right Arm] Sitting 02 Sat by Pulse Oximetry 99 Oxygen Delivery Method Room Air [facility] [place] HPI - General Stated complaint: SORE THROAT,l EAR PAIN Time Seen by Provider: 06/07/21 19:38 Mode of Arrival: Ambulatory Source of Information: Patient Limitations: No Limitations Description of Symptoms (Recalled from Triage Doc. by RN): Pt states that runny nose, left ear pain, and a cough HEENT Symptoms (Recalled from RN notes): Yes Resp Symptoms (Recalled from RN notes): No Skin Symptoms (Recalled from RN notes): No MS Symptoms (Recalled from RN notes): No Functional Status (Recalled from RN notes): n/a - History of Present Illness Provider Complaint: Patient states that she has been having sore throat and pain in her ears for several days States that this evening she was still not feeling well so she came in to get checked out - Related Data Allergies Allergy/AdvReac Type Severity Reaction Status Date / Time No Known Allergies Allergy Verified 06/07/21 19:37 - Worker's Comp Is this a Worker's Comp case?: No Is this an [facility] Worker's Comp?: No Is this a [facility] Worker's Comp?: No [facility] History - Hepatitis A Screen Drug use history?: No High risk sexual behaviors?: No History of sexually transmitted infection?: No Currently employed?: No Childcare worker?: No Do you have indoor plumbing?: Yes Do you have electricity?: Yes Attestation statement:: This patient has been screened for Hepatitis A risk factors. I have reviewed the patient's past medical history: Yes Medical History: Reports:: Gastroesophageal Reflux Disease(GERD), Hiatal Hernia Denies:: Cancer, Diabetes Mellitus Type 1, Diabetes Mellitus Type 2, Internal Pacemaker, MRSA, Seizures Other Medical History: Reports: Other. Denies: Blood Transfusion Reaction Laterality Cases: Bilateral: Myringotomy (Ear Tubes) Other Surgeries: Yes: Bariatric Surgery, Cholecystectomy, Tubal Ligation. No: Pacemaker Amputation: No Fractures: No Comment: tubal ligation reversed - Social History Smoking Status: Never smoker Alcohol Intake: never Substance Use Type: denies use Occupational Status: other Housing: house Household Members: spouse, family Family Hx:: Cancer, Diabetes, Hypertension Comment: Father-[place], CABG@43 ROS Obtained: Yes All systems reviewed & no additional complaints, Yes Systems reviewed as appropriate & no additional complaints - Constitutional Constitutional: Reports system reviewed and no additional complaints, except as docu, Denies body ache, Denies chills, Denies fever(s), Denies headache(s) - ENT
[2021-06-07 20:06] VITALS: BP 131/81; PULSE 75; RESP 16; TEMP 37; O2SAT 99
== END 2021-06-07 20:06 | disposition home or self-care (01) ==
PROVIDERS: Emergency Provider Nurse Practitioner; PCP Family Medicine
DX: J06.9 Acute upper respiratory infection, unspecified (principal)
CPT/HCPCS: 99212; G0463

== ENCOUNTER 2021-06-09 16:00 | Outpatient (RCR) | payer OTHER, SELFPAY ==
--- NOTE | 2021-05-11 15:53 | HMH.PTOPWND ---
Rehab Outpt Wound Evaluation Rehab OP Wound Evaluation Start: 05/11/21 14:56 Freq: Status: Active Protocol: Document 05/11/21 15:23 BEAR (Rec: 05/11/21 15:52 PHOMODESTA [id number]) Electronically Signed By Santino Tenorio, PT 05/11/21 15:23 Subjective/History History History Pt is 51 yowf who presents with c/o pain and edema in the R ankle x ~ 6 mos with insidious ionset of symptoms. She reports fairly constant pain, but worse at night and first step in the morning. She reports hx of bariatric surgery, but remains obese. Subjective Subjective Current pain 10. Lymphedema Eval Classification of Lymphedema Secondary Lymphedema Yes Stemmer's sign Stemmer's Sign no Stage of Lymphedema Lymphedema stages Stage 0 (subjective c/o heaviness and aching) Skin Changes Dry Skin Yes Skin Folds Yes Redness Yes Other Changes Yes Pain Scale Pain Scale (0-10) 6 Affected Extremities Areas Affected by Lymphedema/Edema Right Lower Extremity Manual Lymphatic Drainage Treatment Area MLD Treatment Area Right Lower Extremity Wound Problems/Impairments Impairments Problems/Impairmments Palpation Tenderness,Impaired Range of Motion,Impaired Strength,Impaired Endurance, Impaired Gait Pattern,Impaired Walking,Impaired Standing, Impaired Recreational Activities,Increased Edema, Lymphedema Present,Subjective C/O Pain,Impaired Self Care/ Self Management Prognosis Rehab Potential Good Clinical Impression Consistent with Diagnosis Yes Short Term Goals Number of Weeks 4 Decreased Palpation Tenderness Yes Increase Ability to Stand Yes Decrease Edema Yes Decrease Subjective C/O Pain Yes: 4/10 Patient to Understand Lymphedema Yes Treatment and Exercises Skilled Nursing Goals Number of Weeks 8 Increase Ability to Walk Yes Return to Recreational Activities Yes Decrease Lymphedema Yes Decrease Subjective C/O Pain Yes: 2/10 Patient to be Ind w/ HEP Yes Patient to Adhere Lymphedema Precautions Yes Outpatient Therapy Plan of Care Treatment Plan May Include Therapeutic Exercise Including Kavita
--- NOTE | 2021-06-09 16:12 | HMH.RHREAS ---
Rehab Reassessment Rehab OP Re-assessment Start: 06/09/21 16:07 Freq: Status: Active Protocol: Document 06/09/21 16:07 BEAR (Rec: 06/09/21 16:12 BEAR [id number]) Electronically Signed By Santino Tenorio, PT 06/09/21 16:07 Rehab Re-assessment Subjective Subjective Pt continues to c/o pain 7/10 in R foot centered around the heel. Objective Objective Notes At this time pt has not been present for therapy since initial evaluation 31 days ago . Currently she has no signs of edema in either LE. Pain remains as previously documented. Assessment Progress Assessment Progressing as Expected Assessment Notes Pt with no edema at this time and her signs and symptoms are most consistent with plantar fasciitis. As she has not been to therapy for greater than a month and her initial evaluation was all related to edema, she will require a new therapy order for evaluation of possible plantar fasciitis if this is warranted. Patient goals met none Goals Not Met all Revised Goals none Plan Plan Will need new order for further treatment of R foot pain as noted previously. Frequency of Therapy 0 Duration of therapy 0 Time and Billing Re-Eval Time 15 Re-Eval Billing Units 1 PHYSICIAN CERTIFICATION: I certify the specified therapy services for Zaida Crowell are required, authorized, and reviewed every 30 days.
== END 2021-06-09 16:05 | disposition home or self-care (01) ==
LOC: PT 16:00
PROVIDERS: PCP Family Medicine; Visit Provider Podiatrist
DX: R60.0 Localized edema (principal); M25.572 Pain in left ankle and joints of left foot; M25.371 Other instability, right ankle
CPT/HCPCS: 97162; 97164

== ENCOUNTER → 2021-06-18 08:24 | Outpatient (CLI) | payer OTHER, SELFPAY ==
[2021-06-18 09:02] LABS: Basophils # 0.1 K/mm3 (0-0.2); Basophils % 2.2 % (0.1-2.0); Eosinophils # 0.1 K/mm3 (0.0-0.4); Eosinophils % 2.7 % (0.1-12.0); Hematocrit 41.4 % (37.0-47.0); Hemoglobin 13.3 g/dL (12.2-16.2); Lymphocytes # 2.2 K/mm3 (0.7-4.5); Lymphocytes % 41.5 % (10-50); Mean Corpuscular Hemoglobin 29.1 pg (27.0-31.2); Mean Corpuscular Volume 90.8 fl (81-99); Mean Platelet Volume 7.6 fl (7.4-10.4); Monocytes # 0.3 K/mm3 (0.1-1.0); Monocytes % 5.2 % (1.7-9.3); Neutrophils # 2.5 K/mm3 (1.8-7.8); Neutrophils % 48.3 % (37.0-80.0); Platelet Count 252 K/mm3 (142-424); Red Blood Count 4.56 M/mm3 (4.20-5.40); Red Cell Distribution Width 13.6 % (11.5-17.5); White Blood Count 5.2 K/mm3 (4.8-10.8)
[2021-06-18 09:26] LABS: Alanine Aminotransferase 19 U/L (12-78); Albumin Level 4.2 g/dl (3.5-5.0); Albumin/Globulin Ratio 1.5 (1.1-1.8); Alkaline Phosphatase 66 U/L (38-126); Anion Gap 9.1 mEq/L (5-15); Aspartate Amino Transferase 26 U/L (14-36); Bilirubin,Total 0.7 mg/dl (0.2-1.3); Blood Urea Nitrogen 16 mg/dl (7-17); Carbon Dioxide 31 mmol/L (22.0-30.0); Chloride 101 mmol/L (98-107); Chol/HDL Ratio 3.5 (1-3.5); Cholesterol 215 mg/dl (140-200); Estimated Glomerular Filt Rate 106 ml/min (>60); GFR (African American) 129 ML/MIN (>60); Globulin 2.8 g/dL (1.3-3.2); Glucose 89 mg/dl (74-100); HDL Cholesterol 61 mg/dl (40-60); Potassium 4.1 mmoL/L (3.5-5.1); Sodium 137 mmol/L (136-145); Triglycerides 70 mg/dl (30-150); VLDL Cholesterol 14 mg/dL (0-40)
[2021-06-18 09:36] LABS: Direct LDL Cholesterol 120.53 mg/dL (100-129)
[2021-06-18 09:42] LABS: 25-OH Vitamin D, Total 34.8 ng/mL (30-100)
[2021-06-18 09:57] LABS: Thyroid Stimulating Hormone 2.38 uIU/mL (0.465-4.68)
[2021-06-18 10:26] LABS: Hemoglobin A1C 5.1 % (4.0-6.0)
[2021-06-19 09:14] LABS: Triiodothyronine (T3) Free 3.1 pg/mL (2.0-4.4)
[2021-06-19 13:37] LABS: Insulin Level Total 5.8 uIU/mL (2.6-24.9)
== END ==
PROVIDERS: Visit Provider Nurse Practitioner
DX: Z01.812 Encounter for preprocedural laboratory examination (principal); Z98.84 Bariatric surgery status
CPT/HCPCS: 36415; 80053; 80061; 82306; 83036; 83525; 84443; 84481; 85025

== ENCOUNTER 2021-07-15 16:00 | Outpatient (RCR) | payer OTHER, SELFPAY ==
--- NOTE | 2021-06-15 16:30 | HMH.PTOPEV ---
PT Outpatient Evaluation Rehab PT Outpatient Evaluation Start: 06/15/21 16:18 Freq: Status: Active Protocol: Document 06/15/21 16:18 KYRACHEN (Rec: 06/15/21 16:30 [email or web address] [id number]) Electronically Signed By Niraj Kumar, CELSO 06/15/21 16:18 Outpatient Therapy Subjective History Subjective History This is the initial Physical Therapy evaluation for Zaida Crowell. Pt is a 51 y/o female referred to PT for c/o chronic R ankle and foot pain. Pt reports pain began insidiously ~ 6 months ago. Pt reports c/o pain and swelling in jade-achilles insertion and at plantar surface of heel. Pt states pain is worst in morning or after she has been sitting, and then once she has been up on her feet all day. Chief Complaint Pain,Stiff Symptom Type Ache,Throb,Sharp,Stabbing, Burning,Shooting Symptoms Relieved By Rest/Positioning Symptoms Aggravated By Standing,Physical Activity, Walking Prior Functional Limitations None Current Functional Limitations Housework,Standing,Recreation Activity,Walking,Stairs, Balance Symptom Description Constant but Variable Level of pain today (0-10) 5 Pain scale - at its best (0-10) 4 Pain scale - at its worst (0-10) 8 Ankle/Foot Eval Gait Observation General Gait Pattern Observation No Deviations/Normal Assistive Device Ambulation Assistive Device None Palpation Tenderness right Ankle/Foot Palpation Findings Tenderness Ankle/Foot Palpation Overall Comment C/O TTP along achilles and PF but no physical signs of pain ATF TTP negative PTF TTP negative CF TTP negative Deltoid ligament TTP negative ROM left Ankle/Foot Dorsiflexion w/Knee Extended 5 Active Range Motion (degrees) Ankle/Foot Plantar Flexion Active Range 5515 of Motion (degrees) Ankle/Foot Inversion Active Range of 25 Motion (degrees) right Ankle/Foot Dorsiflexion w/Knee Extended 0 Active Range Motion (degrees) Ankle/Foot Plantar Flexion Active Range 45 of Motion (degrees) Ankle/Foot Eversion Active Range of 30 Motion (degrees) Ankle/Foot Inversion Active Range of 20 Motion (degrees)
== END 2021-07-15 16:05 | disposition home or self-care (01) ==
LOC: PT 16:00
PROVIDERS: PCP Family Medicine; Visit Provider Podiatrist
DX: M25.571 Pain in right ankle and joints of right foot (principal); M25.371 Other instability, right ankle; M76.61 Achilles tendinitis, right leg; M76.71 Peroneal tendinitis, right leg; M72.2 Plantar fascial fibromatosis
CPT/HCPCS: 97010; 97014; 97033; 97035; 97110; 97140; 97163; G0283

== ENCOUNTER 2021-09-24 13:31 | Emergency (ER) | payer OTHER, SELFPAY ==
--- NOTE | 2021-09-24 13:34 | XR_ITS ---
FINAL REPORT CLINICAL HISTORY: pain FINDINGS: LEFT ELBOW 3 views were obtained. There is no acute fracture or dislocation. There is no joint effusion. The joint spaces are intact. There is no soft tissue abnormality. IMPRESSION: No acute process. Authenticated and ERN
[2021-09-24 13:54] VITALS: BP 119/70; PULSE 60; RESP 17; TEMP 36.8; O2SAT 97; BMI 39.6
--- NOTE | 2021-09-24 14:02 | HMH.EDUTC ---
[facility] Disposition Clinical Impression: Left lateral epicondylitis, Left elbow pain Disposition: Home, Self-Care Condition on Discharge: Good Instructions: Lateral Epicondylitis, DI for Lateral Epicondylitis (Tennis Elbow) Additional Instructions: Rest the extremity, Elevate the extremity as tolerated while you are resting. Avoid doing repetitive activities that involve using your left elbow for the next 2 to 3 weeks. Take ibuprofen for pain. Follow up with Dr. Ge (orthopedics). I put in a referral but you need to call his office and schedule an appointment. Follow up with your regular doctor. GO TO THE ER FOR ANY WORSENING SYMPTOMS Prescriptions: methylPREDNISolone [Medrol] 4 mg PO DIRECTED 6 Days #21 packet Transmission Status: Received by [id number] Referrals: Reid Coyne MD [Primary Care Provider] - Lorenzo Ge MD [Staff Physician] - Time of Disposition: 14:15 Medical Decision Making - Medical Records Medical records reviewed: No: I reviewed the patient's medical records. - Emanuel Inquiry Pt receiving controlled substance: No Vital Signs: 09/24/21 13:54 09/24/21 14:17 Temperature 98.2 F 98 F Temperature Source Oral Pulse Rate 60 Pulse Rate [Left Radial] 60 Respiratory Rate 17 17 Blood Pressure 119/70 Blood Pressure [Right Arm] 119/70 Blood Pressure Mean [Right Arm] 86 02 Sat by Pulse Oximetry 97 [facility] HPI - General Stated complaint: lt elbow pain Time Seen by Provider: 09/24/21 14:02 Description of Symptoms (Recalled from Triage Doc. by RN): patient comes in today for complaints of left elbow pain that has been going on for 3 days. patient says that she cant remember doing anything to her elbow. patient also complaints of know on her left side that has been there for 3 months. HEENT Symptoms (Recalled from RN notes): No Resp Symptoms (Recalled from RN notes): No Skin Symptoms (Recalled from RN notes): No MS Symptoms (Recalled from RN notes): No Functional Status (Recalled from RN notes): wnl - History of Present Illness Provider Complaint: She c/o left elbow pain for the past week approx. She states that bending and flexing the elbow causes pain. She denies any known injury. She had similar symptoms in the past and was diagnosed with tennis elbow. She states that it got better with rest then. - Related Data Previous Rx's Medication Instructions Recorded methylPREDNISolone [Medrol] 4 mg PO DIRECTED 6 Days #21 09/24/21 packet Allergies Allergy/AdvReac Type Severity Reaction Status Date / Time No Known Allergies Allergy Verified 06/07/21 19:37 - Worker's Comp Is this a Worker's Comp case?: No [facility] History - Hepatitis A Screen Attestation statement:: This patient has been screened for Hepatitis A risk factors. I have reviewed the patient's past medical history: Yes Medical History: Reports:: Gastroesophageal Reflux Disease(GERD), Hiatal Hernia Denies:: Cancer, Diabetes Mellitus Type 1, Diabetes Mellitus Type 2, Internal Pacemaker, MRSA, Seizures Other Medical History: Reports: Other. Denies: Blood Transfusion Reaction Laterality Cases: Bilateral: Myringotomy (Ear Tubes) Other Surgeries: Yes: Bariatric Surgery, Cholecystectomy, Tubal Ligation. No: Pacemaker Amputation: No Fractures: No Comment: tubal ligation reversed - Social History Smoking Status: Never smoker Alcohol Intake: never Substance Use Type: denies use Occupational Status: other Housing: house Household Members: spouse, family Family Hx:: Cancer, Diabetes, Hypertension Comment: Father-[place], CABG@43 ROS Obtained: Yes All systems reviewed & no additional complaints - Constitutional Constitutional: Denies chills, Denies fever(s) - Musculoskeletal Musculoskeletal: Reports as per HPI - Integumentary/Breasts Skin/Breast: Reports as per HPI - Neurologic Neurologic: Denies tingling/numbness/burning sensations Physical Exam - General Ge
[2021-09-24 14:17] VITALS: BP 119/70; PULSE 60; RESP 17; TEMP 36.6
== END 2021-09-24 14:20 | disposition home or self-care (01) ==
PROVIDERS: Emergency Provider Nurse Practitioner Family; PCP Internal Medicine Adolescent Medicine
DX: M25.522 Pain in left elbow (principal); K21.9 Gastro-esophageal reflux disease without esophagitis; R94.31 Abnormal electrocardiogram [ECG] [EKG]; I51.89 Other ill-defined heart diseases; K44.9 Diaphragmatic hernia without obstruction or gangrene; Z98.84 Bariatric surgery status; Z79.82 Long term (current) use of aspirin; Z82.49 Family history of ischemic heart disease and other diseases of the circulatory system; Z83.3 Family history of diabetes mellitus; Z80.9 Family history of malignant neoplasm, unspecified
CPT/HCPCS: 73080; 99213; G0463

== ENCOUNTER → 2021-10-08 14:53 | Outpatient (CLI) | payer OTHER, SELFPAY ==
--- NOTE | 2021-10-08 14:55 | US_ITS ---
FINAL REPORT CLINICAL HISTORY: SUBCUTANEOUS NODULE OF BACK FINDINGS: Limited sonographic images of the left side of the back were obtained. There is a 2.6 cm hyperechoic nodule at the area of interest which is nonspecific, could represent a lipoma or other mass. This does not appear to represent a cyst. IMPRESSION: Nodule at the area of interest, could represent a lipoma or other mass. Reviewed, Interpreted and Dictated by Michael Disla III, MD Transcribed by Therese Hodge Authenticated and [facility]
== END ==
PROVIDERS: PCP Internal Medicine Adolescent Medicine; Visit Provider Internal Medicine Adolescent Medicine
DX: R22.2 Localized swelling, mass and lump, trunk (principal)
CPT/HCPCS: 76705

== ENCOUNTER → 2021-11-20 09:28 | Outpatient (CLI) | payer OTHER, SELFPAY ==
[2021-11-20 09:55] LABS: Basophils # 0.1 K/mm3 (0-0.2); Basophils % 1.3 % (0.1-2.0); Eosinophils # 0.2 K/mm3 (0.0-0.4); Eosinophils % 3.1 % (0.1-12.0); Hematocrit 43.2 % (37.0-47.0); Hemoglobin 13.5 g/dL (12.2-16.2); Lymphocytes # 1.7 K/mm3 (0.7-4.5); Lymphocytes % 33.9 % (10-50); Mean Corpuscular HGB Conc 31.2 g/dL (31.8-35.4); Mean Corpuscular Hemoglobin 28.2 pg (27.0-31.2); Mean Corpuscular Volume 90.5 fl (81-99); Mean Platelet Volume 7.4 fl (7.4-10.4); Monocytes # 0.3 K/mm3 (0.1-1.0); Monocytes % 5.2 % (1.7-9.3); Neutrophils # 2.9 K/mm3 (1.8-7.8); Neutrophils % 56.7 % (37.0-80.0); Platelet Count 287 K/mm3 (142-424); Red Blood Count 4.77 M/mm3 (4.20-5.40); Red Cell Distribution Width 13.3 % (11.5-17.5)
[2021-11-20 10:32] LABS: Anion Gap 9.7 mEq/L (5-15); Blood Urea Nitrogen 14 mg/dl (7-17); Calcium 9.4 mg/dl (8.4-10.2); Carbon Dioxide 32 mmol/L (22.0-30.0); Chloride 101 mmol/L (98-107); Estimated Glomerular Filt Rate 89 ml/min (>60); GFR (African American) 108 ML/MIN (>60); Glucose 100 mg/dl (74-100); Potassium 4.7 mmoL/L (3.5-5.1); Sodium 138 mmol/L (136-145)
== END ==
PROVIDERS: PCP Internal Medicine Adolescent Medicine; Visit Provider Surgery
DX: Z01.812 Encounter for preprocedural laboratory examination (principal); Z20.822 Contact with and (suspected) exposure to COVID-19; D17.1 Benign lipomatous neoplasm of skin and subcutaneous tissue of trunk
CPT/HCPCS: 36415; 80048; 85025; C9803; U0003; U0005

== ENCOUNTER 2021-11-22 08:22 | Day surgery (SDC) | payer OTHER, SELFPAY ==
[2021-11-17 15:27] VITALS: BMI 39.8
[2021-11-22] VITALS (10 sets, daily range): BP systolic 102–152; BP diastolic 61–81; PULSE 52–67; RESP 14–18; TEMP 36.1–36.4; O2SAT 96–100
[2021-11-22 09:08] LABS: Urine Pregnancy, HCG Qual. Negative (Negative)
--- NOTE | 2021-11-22 09:46 | HMH.ANESCL ---
[facility] Anesthesia Checklist - Patient Identification Patient Identification: Arm Band, Verbal (Name & ) - Structural Data Admitted From: Home Planned Operative Procedure/s: Excision of Left wall lesion Consent for Planned Operative Procedure(s) Verified: Yes Verified Documents: Surgical Consent - NPO Status Verified Time NPO: 00:00 - Additional verifications Anesthesia Reactions: No Hx Blood Transfusions: No Blood Transfusion Reaction: No - Airway Assessment C-Spine Mobility Assessed: Yes TMJ Mobility Assessed: Yes Dentition: Good Dentition - Neurological Assessment Level of Consciousness: Awake, Alert, Appropriate - Anesthesia Plan Anesthesia Risk discussed: Yes ASA Class: II Anesthesia Type: General [facility] History I have reviewed the patient's past medical history: Yes Medical History: Reports:: Gastroesophageal Reflux Disease(GERD), Hiatal Hernia Denies:: Cancer, Diabetes Mellitus Type 1, Diabetes Mellitus Type 2, Internal Pacemaker, MRSA, Seizures *Have you ever received a pneumonia vaccine?: No *Have you received a flu vaccine this season?: No Other Medical History: Reports: Other. Denies: Blood Transfusion Reaction Anesthesia experience/problems:: PONV Laterality Cases: Bilateral: Myringotomy (Ear Tubes) Other Surgeries: Yes: Bariatric Surgery, Cholecystectomy, Tubal Ligation. No: Pacemaker Amputation: No Fractures: No - *Social History Last grade of school completed: 9th or 10th Smoking Status: Never smoker Alcohol Intake: never Substance Use Type: denies use *Occupational Status:: unemployed Housing: house Household Members: spouse, family *Travel in the last 8 weeks: None Family Hx:: Coronary Artery Disease, Diabetes, Hyperlipidemia, Hypertension, Kidney Disease
--- NOTE | 2021-11-22 10:05 | HMH.OPNOTE ---
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 Coyne for left thorax lipoma. She states that this has been present for about 7 months. It is tender. She would like to undergo excision. She did undergo ultrasound imaging which states that the nodule at the area of interest could represent a lipoma or other mass . This measures 2.6 cm. Due to the unclear etiology and depth of lesion plan was made for excision under anesthesia Operative findings:: Consistent with simple subcutaneous lipoma Operative note:: Patient was taken the operating room. She was positioned in supine position. General anesthesia was induced via LMA. The area was prepped and draped. Lesion was palpable. Small incision was made overlying the palpable lesion. Cyst dissection was carried down through superficial subcutaneous tissues. Immediately relatively well-circumscribed adipose tissue was encountered consistent with relatively superficial subcutaneous lipoma. This was easily dissected free from surrounding subcutaneous tissues with blunt dissection and some use of electrocautery. It was not as deep as anticipated. Overall length of the incision measured approximately 3 cm. Wound was palpated and probed thoroughly to assess for any residual mass of which none was noted. Hemostasis was achieved with electrocautery. Local anesthetic was infiltrated. Subdermal tissues were closed with interrupted 3-0 Vicryl. Skin was closed with 4-0 Monocryl in a subcuticular fashion. Steri-Strips and dressing was applied. Condition: stable Disposition: PACU Specimens:: Lipoma Complications:: None immediately apparent
--- NOTE | 2021-11-22 10:09 | HMH.ANESI ---
[facility] Anesthesia Record Part I Intake, IV Amount: 400 Estimated blood loss (mL): 1 Urine output (mL): 0 Blood Pressure: 116/81 SaO2: 99 Pulse Rate: 54 Respiratory Rate: 14 Temperature: 97.1 F Patient is:: Drowsy Stable to PACU at:: 10:06
--- NOTE | 2021-11-22 14:31 | HMH.ANESII ---
[facility] Anesthesia Record Part II Discharge Time: 10:36 Destination: Surgical Day Care (OP Surgery) PACU nurse assessment reviewed?: Yes Patient Condition:: Good Anesthesia Complications:: None Swallowing reflex intact?: Yes Cyanosis?: No Blood Pressure: 102/62 Pulse Rate: 59 Temperature: 97.1 F Mental Status: Alert & Oriented Pain level:: 4 Nausea and/or vomitting:: None Intake, IV Amount: 0
== END 2021-11-22 11:12 | disposition home or self-care (01) ==
LOC: OR 08:23
PROVIDERS: PCP Internal Medicine Adolescent Medicine; Visit Provider Surgery
PROC: (CPT 11403; principal; 2021-11-22 10:00)
DX: D17.1 Benign lipomatous neoplasm of skin and subcutaneous tissue of trunk (principal)
CPT/HCPCS: 11403; 12032; 81025; 96374; J2405

== ENCOUNTER → 2022-05-24 15:43 | Outpatient (CLI) | payer MEDICAID, SELFPAY ==
--- NOTE | 2022-05-24 15:47 | MM_ITS ---
PROCEDURE INFORMATION: Exam: MG Bilateral Screening 3D Mammography Exam date and time: 05/24/2022 3:41 PM Age: 52 years old Clinical indication: Screening examination. Her paternal grandmother had breast cancer. TECHNIQUE: Imaging protocol: Bilateral Screening tomosynthesis and 2D mammography including computer-aided detection (CAD) when performed. COMPARISON: 1. MG SCBI MM Dig screening mamm BI w/CAD 05/17/2018 4:07 PM 2. MG DMSB DIG MAMM-SCREEN BIJAN W/CAD 04/21/2016 4:57 PM 3. MG DMSB DIGITAL MAMM-SCREEN BILATERAL 08/08/2012 4:44 PM FINDINGS: MAMMOGRAPHY: Breast composition: The breasts are almost entirely fatty. Mass: No suspicious mass. Architectural distortion: None. Calcifications: No suspicious calcifications. Asymmetric density: None. Skin thickening: None. Axillary adenopathy: None. IMPRESSION: No mammographic evidence of malignancy. Annual screening is recommended unless otherwise clinically indicated. ASSESSMENT: BI-RADS Category 1: Negative
== END ==
PROVIDERS: PCP Internal Medicine Adolescent Medicine; Visit Provider Nurse Practitioner Family
DX: Z12.31 Encounter for screening mammogram for malignant neoplasm of breast (principal)
CPT/HCPCS: 77063; 77067

== ENCOUNTER 2022-06-21 18:27 | Emergency (ER) | payer MEDICAID, SELFPAY ==
[2022-06-21 19:15] VITALS: BP 142/76; PULSE 74; RESP 20; TEMP 36.7; O2SAT 98; BMI 42.9
--- NOTE | 2022-06-21 19:41 | EXP.UTC ---
Discharge Plan Disposition Patient Disposition: Home, Self-Care Condition: Good Prescriptions Prescriptions: New benzonatate 100 mg capsule 100 mg PO TID PRN (Reason: cough) Qty: 30 0RF azithromycin [Zithromax Z-Alexey] 250 mg tablet See Rx Instructions .ROUTE .COMPLEX 5 Days Qty: 6 0RF Rx Instructions: For 250 mg dose pack: take 500 mg today (day 1), then 250 mg for 4 days (days 2-5) methylprednisolone [Medrol (Alexey)] 4 mg tablets,dose pack See Rx Instructions .Route .COMPLEX 6 Days Qty: 21 0RF Rx Instructions: taper pack; fluticasone propionate [Flonase Allergy Relief] 50 mcg/actuation spray,suspension 1 spray intranasal DAILY Qty: 16 0RF Rx Instructions: administer into each nostril No Action cetirizine 10 mg tablet 10 mg PO DAILY phentermine 37.5 mg capsule 37.5 mg PO DAILY Label Comments: TAKE 1 CAPSULE BY MOUTH ONCE DAILY topiramate 25 mg tablet 25 mg PO DAILY Label Comments: TAKE 2 TABLETS BY MOUTH AT BEDTIME Referrals Follow up/Referrals: Adrienne Reynolds APRN [Primary Care Provider] - See instructions Activity Restrictions/Add. Instructions Additional Instructions/Restrictions: *Monitor Temp, Over the counter Motrin or Tylenol as directed/as needed Tylenol every 4 hours and Motrin every 6 hours (as long as your family doctor has told you that you can take it) for fever or pain. and straight to ER if unable to lower temp less than 101.0 after medication given *Warm salt water gargles may help to soothe the throat *Throat Lozenges? *Warm fluids like tea with honey may help to soothe the throat? *Sleep elevated *Humidifier/Vaporizer Follow up IMMEDIATELY for new or worsening symptoms or no Noticeable improvement over the next 48-72 hours. 911 for difficulty breathing or swallowing Clinical Impressions Clinical Impression: Sinusitis Qualifiers: Sinusitis location: unspecified location Chronicity: unspecified Qualified Code(s): J32.9 - Chronic sinusitis, unspecified Instructions Patient Instructions: Sinusitis, DI for Sinusitis Discharge ED Provider: Elise Michelle [facility] General Stated complaint: sore throat, Cough L ear Pain Mode of Arrival: Ambulatory Source of Information: Patient Limitations: No Limitations Time Seen by Provider: 06/21/22 19:42 Description of Symptoms (Recalled from Triage Doc. by RN): PATIENT C/O COUGH, SORE THROAT, LEFT EAR PAIN, SNEEZING, RUNNY NOSE AND NAUSEA X 4-5 DAYS HEENT Symptoms (Recalled from RN notes): Yes Resp Symptoms (Recalled from RN notes): Yes Skin Symptoms (Recalled from RN notes): No MS Symptoms (Recalled from RN notes): No Functional Status (Recalled from RN notes): WNL History of Present Illness Provider Complaint: Patient states that for the last 4-5 days she has been having sinus congestion and pressure, sneezing, cough, scratchy throat and pain in her left ear States that today she wasnt feeling any better so she came in Related Data Home Medications Medication Instructions Recorded Confirmed cetirizine 10 mg tablet 10 mg PO DAILY . 11/02/21 11/17/21 phentermine 37.5 mg capsule 37.5 mg PO DAILY . 11/02/21 11/17/21 topiramate 25 mg tablet 25 mg PO DAILY . 11/02/21 11/17/21 Previous Rx's Medication Instructions Recorded azithromycin 250 mg tablet See Rx Instructions PO .COMPLEX 5 06/21/22 (Zithromax Z-Alexey) days #6 tabs benzonatate 100 mg capsule 100 mg PO TID PRN cough #30 caps 06/21/22 fluticasone propionate 50 1 spray intranasal DAILY #16 grams 06/21/22 mcg/actuation nasal spray,suspension (Flonase Allergy Relief) methylprednisolone 4 mg tablets in See Rx Instructions .Route 06/21/22 a dose pack (Medrol (Alexey)) .COMPLEX 6 days #21 tabs Allergies Allergy/AdvReac Type Severity Reaction Status Date / Time No Known Allergies Allergy Verified 11/17/21 15:26 Worker's Comp Is this a Worker's Comp case?: No [facility] Disclaimer: T
[2022-06-21 19:47] VITALS: BP 142/76; PULSE 74; RESP 20; TEMP 36.7; O2SAT 98
== END 2022-06-21 19:55 | disposition home or self-care (01) ==
PROVIDERS: Emergency Provider Nurse Practitioner; PCP Nurse Practitioner Family
DX: J01.90 Acute sinusitis, unspecified (principal); R05.1 Acute cough; R11.0 Nausea
CPT/HCPCS: 99212; 99214; G0463

== ENCOUNTER → 2022-06-30 11:39 | Outpatient (CLI) | payer MEDICAID, SELFPAY ==
--- NOTE | 2022-06-30 11:44 | XR_ITS ---
FINAL REPORT CLINICAL HISTORY: CYST FINDINGS: Right hand Three views were obtained. There is no acute fracture or dislocation. The bones are well mineralized. The joint spaces appear normal. No soft tissue abnormality is identified. IMPRESSION: No acute process. Reviewed, Interpreted and Dictated by Jim Dinero MD Transcribed by Therese Hodge Authenticated and [facility]
== END ==
PROVIDERS: PCP Nurse Practitioner Family; Visit Provider Nurse Practitioner Family
DX: M79.641 Pain in right hand (principal); M85.641 Other cyst of bone, right hand
CPT/HCPCS: 73130

== ENCOUNTER → 2022-08-01 15:09 | Outpatient (CLI) | payer MEDICAID, SELFPAY ==
--- NOTE | 2022-08-01 15:18 | ECG_ITS ---
APPROVED REPORT Exam: Resting ECG HR:63 bpm ECG Measurements Heart Rate 63 AXES NC 163 P 33 QRSd 88 QRS 4 QT 397 T 2 QTc 404 Conclusion SINUS RHYTHM WITH SINUS ARRHYTHMIA NORMAL ECG UNCONFIRMED REPORT Electronically signed by : Alberto Lopez MD 08/01/2022 19:42:39
--- NOTE | 2022-08-01 15:38 | XR_ITS ---
FINAL REPORT CLINICAL HISTORY: pre op, COMPARISON: 04/11/2019 FINDINGS: 2 views of the chest were obtained . The heart is normal in size. The mediastinum is within normal limits. The lungs are clear. There is no pneumothorax. Osseous structures are unremarkable. IMPRESSION: No acute cardiopulmonary process. Reviewed, Interpreted and Dictated by Michael Disla III, MD Transcribed by Ivon Ledezma Authenticated and [facility]
[2022-08-01 16:35] LABS: Basophils % 0.7 % (0.1-2.0); Eosinophils # 0.1 K/mm3 (0.0-0.4); Eosinophils % 1.9 % (0.1-12.0); Hematocrit 41.1 % (37.0-47.0); Hemoglobin 13.4 g/dL (12.2-16.2); Lymphocytes # 2.1 K/mm3 (0.7-4.5); Lymphocytes % 32.9 % (10-50); Mean Corpuscular HGB Conc 32.7 g/dL (31.8-35.4); Mean Corpuscular Hemoglobin 27.9 pg (27.0-31.2); Mean Corpuscular Volume 85.5 fl (81-99); Mean Platelet Volume 7.3 fl (7.4-10.4); Monocytes # 0.3 K/mm3 (0.1-1.0); Monocytes % 5.2 % (1.7-9.3); Neutrophils # 3.7 K/mm3 (1.8-7.8); Neutrophils % 59.2 % (37.0-80.0); Platelet Count 287 K/mm3 (142-424); Red Blood Count 4.81 M/mm3 (4.20-5.40); Red Cell Distribution Width 13.2 % (11.5-17.5); White Blood Count 6.3 K/mm3 (4.8-10.8)
[2022-08-01 17:09] LABS: Anion Gap 9.6 mEq/L (5-15); Blood Urea Nitrogen 13 mg/dl (7-17); Calcium 8.8 mg/dl (8.4-10.2); Carbon Dioxide 32 mmol/L (22.0-30.0); Chloride 99 mmol/L (98-107); Estimated Glomerular Filt Rate 106 ml/min (>60); GFR (African American) 128 ML/MIN (>60); Glucose 107 mg/dl (74-100); Potassium 4.6 mmoL/L (3.5-5.1); Sodium 136 mmol/L (136-145)
== END ==
PROVIDERS: PCP Nurse Practitioner Family; Visit Provider Orthopaedic Surgery
DX: M67.40 Ganglion, unspecified site; Z01.818 Encounter for other preprocedural examination
CPT/HCPCS: 36415; 71046; 80048; 85025; 93005

== ENCOUNTER 2022-08-03 11:18 | Emergency (ER) | payer MEDICAID, SELFPAY ==
--- NOTE | 2022-08-03 11:28 | EXP.UTC ---
Discharge Plan Disposition Patient Disposition: Home, Self-Care Condition: Good Prescriptions Prescriptions: No Action topiramate 25 mg tablet 25 mg PO DAILY PRN (Reason: .) Label Comments: TAKE 2 TABLETS BY MOUTH AT BEDTIME azithromycin [Zithromax] 250 mg tablet 250 mg PO UD DOSE PK Rx Instructions: Take two (2) tablets today, then one (1) tablet days #2 thru #5 methylprednisolone 4 mg tablets,dose pack 4 mg PO DIRECTED Referrals Follow up/Referrals: Adrienne Reynolds APRN [Primary Care Provider] - See instructions Activity Restrictions/Add. Instructions Additional Instructions/Restrictions: Drink plenty of fluids. Take tylenol or ibuprofen for pain or fever. Take the medications as directed. Follow up with your regular doctor. GO TO THE ER FOR ANY WORSENING SYMPTOMS Clinical Impressions Clinical Impression: Sinusitis, Otitis media Instructions Patient Instructions: DI for Sinusitis Discharge ED Provider: Reid Aldrich [facility] General Stated complaint: Congestion, headache, blisters inside of mouth Time Seen by Provider: 08/03/22 11:28 History of Present Illness Provider Complaint: She states that for the past 2 days she has had sinus congestion, blisters in mouth, and ear pain. Related Data Home Medications Medication Instructions Recorded Confirmed topiramate 25 mg tablet 25 mg PO DAILY PRN . 11/02/21 08/04/22 azithromycin 250 mg tablet 250 mg PO UD DOSE PK . 08/04/22 08/04/22 (Zithromax) methylprednisolone 4 mg tablets in 4 mg PO DIRECTED . 08/04/22 08/04/22 a dose pack Allergies Allergy/AdvReac Type Severity Reaction Status Date / Time STERI STRIPS Allergy ITCHING, Uncoded 08/04/22 10:02 RED, [facility] Disclaimer: The information contained in this section may have been updated after the patient was seen, as this information can be updated by other users. Medical History Abnormal EKG Allergies Anxiety and depression Diastolic dysfunction Dyspnea Ear infection Family history of heart disease Gastroesophageal reflux disease Hiatal hernia History of COVID-19 Hyperlipidemia Kidney stone Migraine Mitral valve prolapse Rectal tear Sinus headache Urinary tract infection Surgical History H/O gastric sleeve History of endometrial ablation History of placement of ear tubes History of reversal of tubal ligation Hx of cholecystectomy Hx of tubal ligation Family History Father CHF (congestive heart failure) Heart attack Diabetes Hyperlipidemia Mother Diabetes Hyperlipidemia Social History Smoking Status: Never smoker alcohol intake: never substance use type: denies use current occupational status: unemployed Travel in the last 8 weeks: None household members: spouse and family housing: house caffeine: Yes ROS Obtained: Yes All systems reviewed & no additional complaints except as documented Constitutional Constitutional: Reports chills and Reports fever(s) Eyes Eyes: Denies eye discharge ENT Ears, Nose, Mouth, and Throat: Reports as per HPI Cardiovascular Cardiovascular: Denies chest pain Respiratory Respiratory: Denies chest congestion and Reports cough Gastrointestinal Gastrointestingal: Reports nausea; Denies abdominal pain, constipation, cramping, diarrhea or vomiting Musculoskeletal Musculoskeletal: Denies arthralgias Integumentary/Breasts Skin/Breast: Denies rash Neurologic Neurologic: Denies paresthesias Physical Exam General General appearance: alert and in no apparent distress Head Head exam: atraumatic, normocephalic and normal inspection Eye Eye exam: Present normal appearance, PERRL and EOMI ENT ENT exam: Present mucous membranes moist and normal
[2022-08-03 11:30] VITALS: BP 136/79; PULSE 74; RESP 18; TEMP 36.7; O2SAT 96; BMI 43.3
[2022-08-03 12:35] LABS: UTC Strep Screen (Rapid) Negative (Negative)
[2022-08-03 13:08] VITALS: BP 121/71; PULSE 91; RESP 18; TEMP 37.3; O2SAT 96
== END 2022-08-03 13:07 | disposition home or self-care (01) ==
PROVIDERS: Emergency Provider Nurse Practitioner Family; PCP Nurse Practitioner Family
DX: J01.90 Acute sinusitis, unspecified (principal); H66.90 Otitis media, unspecified, unspecified ear
CPT/HCPCS: 87880; 99212; 99213; G0463

== ENCOUNTER 2022-08-08 07:15 | Day surgery (SDC) | payer MEDICAID, SELFPAY ==
[2022-08-04 09:52] VITALS: BMI 43.4
[2022-08-08 07:44] VITALS: BP 127/69; PULSE 69; RESP 18; TEMP 36.1; O2SAT 100
[2022-08-08 08:01] LABS: Urine Pregnancy, HCG Qual. Negative (Negative)
--- NOTE | 2022-08-08 08:02 | EXP.ANES.CKL ---
[facility] Disclaimer: The information contained in this section may have been updated after the patient was seen, as this information can be updated by other users. Medical History Abnormal EKG Allergies Anxiety and depression Diastolic dysfunction Dyspnea Ear infection Family history of heart disease Gastroesophageal reflux disease Hiatal hernia History of COVID-19 Hyperlipidemia Kidney stone Migraine Mitral valve prolapse Rectal tear Sinus headache Urinary tract infection Surgical History H/O gastric sleeve History of endometrial ablation History of placement of ear tubes History of reversal of tubal ligation Hx of cholecystectomy Hx of tubal ligation Family History Father CHF (congestive heart failure) Heart attack Diabetes Hyperlipidemia Mother Diabetes Hyperlipidemia Social History (Updated 08/08/22 @ 08:01 by Shanon Storey RN) Smoking Status: Never smoker alcohol intake: never substance use type: denies use current occupational status: unemployed Travel in the last 8 weeks: None household members: spouse and family housing: house caffeine: Yes [facility] Anesthesia Checklist Patient Identification Patient Identification: Arm Band and Verbal (Name & ) Structural Data Admitted From: Home Planned Operative Procedure/s: Right Finger Ganglion cyst removal Consent for Planned Operative Procedure(s) Verified: Yes Verified Documents: Surgical Consent NPO Status Verified Time NPO: 00:00 Additional verifications Anesthesia Reactions: No Hx Blood Transfusions: No Blood Transfusion Reaction: No Airway Assessment C-Spine Mobility Assessed: Yes TMJ Mobility Assessed: Yes Neurological Assessment Level of Consciousness: Awake, Alert and Appropriate Anesthesia Plan ASA Class: II Anesthesia Type: MAC
--- NOTE | 2022-08-08 09:35 | EXP.OP.NOTE ---
Date of procedure: 08/08/22 Pre-op Diagnosis:: Soft tissue mass/cyst right index finger Post-op Diagnosis:: Same Procedure performed:: Excision soft tissue mass right base index finger ([id number]) Surgeon:: Sonu Kennedy DO ASSISTANCE REPRESENTATIVE:: Hannah Carey Anesthesia: MAC and local Estimated blood loss (mL): 0 Operative findings:: Small ganglion cyst Operative note:: Patient was identified preoperatively. Right hand marked with yes my initials. Taken the operating room. Placed upon the operating bed. Right upper extremities prepped draped normal sterile fashion. Once prepped and draped final operative timeout performed to identify proper patient procedure and extremity. Everyone involved in the case agreed. There were no counter indications to beginning. She did receive preoperative antibiotics. Sedation was given to the patient. And local anesthesia was infiltrated over the planned incision over the volar aspect at the base of the index finger on the right side. Skin F was used incise the skin. Careful dissection was taken down bluntly retractors were placed and ganglion cyst identified. Ganglion cyst and wounds were removed. Cyst ruptured upon removal. Copious irrigation of wound performed. No further soft tissue mass palpated. Skin closed with nylon stitch. Sterile dressing placed. Patient waken for sedation taken recovery stable condition. Condition: stable Disposition: PACU Complications:: None apparent
[2022-08-08 09:38] VITALS: BP 102/76; PULSE 83; RESP 16; TEMP 36.4; O2SAT 100
[2022-08-08 09:48] VITALS: BP 115/76; PULSE 82; RESP 16; O2SAT 97
[2022-08-08 09:58] VITALS: BP 124/73; PULSE 65; RESP 16; O2SAT 98
[2022-08-08 10:08] VITALS: BP 112/66; PULSE 60; RESP 16; O2SAT 97
== END 2022-08-08 10:15 | disposition home or self-care (01) ==
PROVIDERS: PCP Nurse Practitioner Family; Visit Provider Orthopaedic Surgery
PROC: (CPT 26160; principal; 2022-08-08 08:45)
DX: M67.441 Ganglion, right hand (principal)
CPT/HCPCS: 26160; 81025; 96374

== ENCOUNTER 2022-11-14 18:12 | Emergency (ER) | payer MEDICAID, SELFPAY ==
[2022-11-14 18:13] VITALS: BP 130/77; PULSE 69; RESP 16; TEMP 36.7; O2SAT 97; BMI 43.9
--- NOTE | 2022-11-14 18:32 | EXP.UTC ---
Discharge Plan Disposition Patient Disposition: Home, Self-Care Condition: Good Prescriptions Prescriptions: New amoxicillin 500 mg capsule 500 mg PO TID 7 Days Qty: 21 0RF fluticasone propionate [Flonase Allergy Relief] 50 mcg/actuation spray,suspension 1 - 2 spray intranasal DAILY Qty: 16 0RF Rx Instructions: administer into each nostril daily No Action ibuprofen 800 mg tablet 800 mg PO Q6H PRN (Reason: post op pain) Qty: 30 0RF Referrals Follow up/Referrals: Adrienne Connors APRN [Primary Care Provider] - See instructions Activity Restrictions/Add. Instructions Additional Instructions/Restrictions: *Monitor Temp, Over the counter Motrin or Tylenol as directed/as needed Tylenol every 4 hours and Motrin every 6 hours (as long as your family doctor has told you that you can take it) for fever or pain. and straight to ER if unable to lower temp less than 101.0 after medication given Take medication as prescribed? *Sleep elevated *Humidifier/Vaporizer *Flonase 2 sprays in each nostril daily but be aware that it may take 2-3 days before you notice improvement Follow up IMMEDIATELY for new or worsening symptoms or no Noticeable improvement over the next 48-72 hours. 911 for difficulty breathing or swallowing Clinical Impressions Clinical Impression: Otitis media Qualifiers: Otitis media type: unspecified Laterality: left Qualified Code(s): H66.92 - Otitis media, unspecified, left ear Instructions Patient Instructions: Middle Ear Infection, Amoxicillin Discharge ED Provider: Elise Michelle [facility] HPI General Stated complaint: LT ear pain Mode of Arrival: Ambulatory Source of Information: Patient Limitations: No Limitations Time Seen by Provider: 11/14/22 18:32 Description of Symptoms (Recalled from Triage Doc. by RN): Patient reports left ear pain for the past 3 days. HEENT Symptoms (Recalled from RN notes): Yes Resp Symptoms (Recalled from RN notes): No Skin Symptoms (Recalled from RN notes): No MS Symptoms (Recalled from RN notes): No Functional Status (Recalled from RN notes): wnl History of Present Illness Provider Complaint: Patient states that she has been having pain and fullness in her left ear for several days that has continued to get worse State that today it was throbbing and getting worse since she got up so she came in to get it checked Related Data Previous Rx's Medication Instructions Recorded ibuprofen 800 mg tablet 800 mg PO Q6H PRN post op pain #30 08/08/22 tabs amoxicillin 500 mg capsule 500 mg PO TID 7 days #21 caps 11/14/22 fluticasone propionate 50 1 - 2 spray intranasal DAILY #16 11/14/22 mcg/actuation nasal grams spray,suspension (Flonase Allergy Relief) Allergies Allergy/AdvReac Type Severity Reaction Status Date / Time adhesive tape Allergy Redness of Verified 09/14/22 10:40 Skin Worker's Comp Is this a Worker's Comp case?: No [facility] Disclaimer: The information contained in this section may have been updated after the patient was seen, as this information can be updated by other users. 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
[2022-11-14 18:38] VITALS: BP 130/77; PULSE 69; RESP 16; TEMP 36.7; O2SAT 97
== END 2022-11-14 18:38 | disposition home or self-care (01) ==
PROVIDERS: Emergency Provider Nurse Practitioner; PCP Nurse Practitioner Family
DX: H66.92 Otitis media, unspecified, left ear (principal); K21.9 Gastro-esophageal reflux disease without esophagitis; E78.5 Hyperlipidemia, unspecified; J30.9 Allergic rhinitis, unspecified; F41.9 Anxiety disorder, unspecified; F32.A Depression, unspecified
CPT/HCPCS: 99212; 99214; G0463

== ENCOUNTER 2022-11-20 05:47 | Emergency (ER) | payer MEDICAID, SELFPAY ==
[2022-11-20 05:48] VITALS: BP 145/59; PULSE 75; RESP 20; TEMP 36.6; O2SAT 100; BMI 43.0
--- NOTE | 2022-11-20 05:50 | ECG_ITS ---
APPROVED REPORT Exam: Resting ECG HR:61 bpm ECG Measurements Heart Rate 61 AXES AR 188 P 29 QRSd 86 QRS 35 QT 418 T 16 QTc 421 Conclusion SINUS RHYTHM NORMAL ECG UNCONFIRMED REPORT Electronically signed by : Alberto Lopez MD 11/21/2022 14:02:57
--- NOTE | 2022-11-20 05:59 | XR_ITS ---
PROCEDURE INFORMATION: Exam: XR Chest Exam date and time: 11/20/2022 6:13 AM Age: 52 years old Clinical indication: Pain; Chest pressure and left-sided; Additional info: Acute onset central/left chest pain TECHNIQUE: Imaging protocol: Radiologic exam of the chest. Views: 2 views. COMPARISON: CR XR CHEST 2V 08/01/2022 3:42 PM FINDINGS: Lungs: Unremarkable. No consolidation. Pleural spaces: Unremarkable. No pleural effusion. No pneumothorax. Heart/Mediastinum: Unremarkable. No cardiomegaly. Bones/joints: Unremarkable. IMPRESSION: No acute findings.
[2022-11-20 06:06] LABS: Basophils % 0.4 % (0.1-2.0); Eosinophils # 0.2 K/mm3 (0.0-0.4); Eosinophils % 3.2 % (0.1-12.0); Hematocrit 42.4 % (37.0-47.0); Hemoglobin 13.1 g/dL (12.2-16.2); Lymphocytes # 2.3 K/mm3 (0.7-4.5); Lymphocytes % 36.5 % (10-50); Mean Corpuscular HGB Conc 30.9 g/dL (31.8-35.4); Mean Corpuscular Hemoglobin 26.8 pg (27.0-31.2); Mean Corpuscular Volume 86.5 fl (81-99); Mean Platelet Volume 7.4 fl (7.4-10.4); Monocytes # 0.3 K/mm3 (0.1-1.0); Neutrophils # 3.5 K/mm3 (1.8-7.8); Neutrophils % 54.9 % (37.0-80.0); Platelet Count 272 K/mm3 (142-424); Red Cell Distribution Width 13.6 % (11.5-17.5); White Blood Count 6.3 K/mm3 (4.8-10.8)
[2022-11-20 06:11] LABS: Alanine Aminotransferase 50 U/L (12-78); Albumin/Globulin Ratio 1.2 (1.1-1.8); Alkaline Phosphatase 87 U/L (38-126); Anion Gap 8.9 mEq/L (5-15); Aspartate Amino Transferase 39 U/L (14-36); Bilirubin,Total 0.5 mg/dl (0.2-1.3); Blood Urea Nitrogen 15 mg/dl (7-17); Carbon Dioxide 31 mmol/L (22.0-30.0); Chloride 102 mmol/L (98-107); Creatinine Clearance Estimated 83 mL/min (50-200); Estimated Glomerular Filt Rate 89 ml/min (>60); GFR (African American) 107 ML/MIN (>60); Globulin 3.3 g/dL (1.3-3.2); Glucose 93 mg/dl (74-100); Potassium 3.9 mmoL/L (3.5-5.1); Sodium 138 mmol/L (136-145); Total Protein,Serum 7.3 g/dl (6.3-8.2)
[2022-11-20 06:23] LABS: Troponin I < 0.01 ng/ml (0.00-0.034)
--- NOTE | 2022-11-20 06:44 | HMH.EDGENADL ---
Discharge Plan Disposition Patient Disposition: Home, Self-Care Condition: Good Prescriptions Prescriptions: New fluconazole 150 mg tablet 150 mg PO DAILY Qty: 1 0RF Rx Instructions: administer on day 1 of therapy Referrals Follow up/Referrals: Fidelia Muller DO [Primary Care Provider] - See instructions Activity Restrictions/Add. Instructions Additional Instructions/Restrictions: Please follow-up with your primary care provider. Please return to the emergency department if you develop any new or worsening symptoms or become concerned for your health. You have been given a prescription for fluconazole, please take this dose for treatment of a yeast infection. Clinical Impressions Clinical Impression: Vaginal yeast infection Chest pain Qualifiers: Chest pain type: other chest pain Qualified Code(s): R07.89 - Other chest pain Instructions Patient Instructions: Vaginal Yeast Infection Discharge ED Provider: Stuart Hererra I General Adult HPI <Eugene Luis MD - Last Filed: 11/20/22 06:57> General Chief complaint: Chest Pain Stated complaint: CP Time Seen by Provider: 11/20/22 05:53 Mode of Arrival: Ambulatory Source of Information: Patient Limitations: No Limitations Description of Symptoms (Recalled from ER Triage Doc. by RN): Pt presents with chest pain that awakened her in her sleep around 5am. Midesternal and radiating to left arm. Hx of mitral valve prolapse. History of Present Illness HPI narrative: 52-year-old female history of hypertension presents with acute onset chest pain. She reports that she was awake and rolling over in bed when she had sudden onset of central chest pain radiating to the left side. She reports pain is worse with range of motion of the left arm. She thinks she likely pulled a muscle but wanted to get checked out because her father had a heart attack in his 40s. She reports mild chest pain with deep inspiration but otherwise denies shortness of breath. No recent illness. Related Data Previous Rx's Medication Instructions Recorded fluconazole 150 mg tablet 150 mg PO DAILY 1 dose #1 tab 11/20/22 Allergies Allergy/AdvReac Type Severity Reaction Status Date / Time adhesive tape Allergy Redness of Verified 09/14/22 10:40 Skin PFSH <Eugene Luis MD - Last Filed: 11/20/22 06:57> [facility] Disclaimer: The information contained in this section may have been updated after the patient was seen, as this information can be updated by other users. Medical History Abnormal EKG Allergies Anxiety and depression Diastolic dysfunction Dyspnea Ear infection BIJAN Family history of heart disease Gastroesophageal reflux disease Hiatal hernia History of COVID-19 Hyperlipidemia Kidney stone Migraine Mitral valve prolapse Rectal tear RECTAL TEAR REPAIR Sinus headache Urinary tract infection Surgical History H/O gastric sleeve History of endometrial ablation History of placement of ear tubes BIJAN History of reversal of tubal ligation Hx of cholecystectomy Hx of tubal ligation X2 Family History Father CHF (congestive heart failure) Heart attack Diabetes Hyperlipidemia Mother Diabetes Hyperlipidemia Social History Smoking Status: Never smoker alcohol intake: never substance use type: denies use current occupational status: unemployed Travel in the last 8 weeks: None household members: spouse and family housing: house caffeine: Yes <Eugene Luis MD - Last Filed: 11/20/22 06:57> ROS Obtained: Yes All systems reviewed & no additional complaints except as documented Physical Exam <Eugene Luis MD - Last Filed: 11/20/22 06:57> General General appearance: alert and in no apparent distress Head H
[2022-11-20 07:01] VITALS: BP 116/51; PULSE 60; RESP 16; O2SAT 95
[2022-11-20 07:30] VITALS: BP 111/62; PULSE 56; O2SAT 95
[2022-11-20 08:30] VITALS: BP 114/57; PULSE 70; RESP 17; O2SAT 95
[2022-11-20 09:22] LABS: Troponin I < 0.01 ng/ml (0.00-0.034)
[2022-11-20 09:44] VITALS: BP 121/61; PULSE 71; RESP 16; TEMP 36.7; O2SAT 97
== END 2022-11-20 09:46 | disposition home or self-care (01) ==
PROVIDERS: Emergency Medicine; Emergency Provider Emergency Medicine; PCP Pediatrics
DX: R07.89 Other chest pain (principal); M79.602 Pain in left arm; B37.31 Acute candidiasis of vulva and vagina; F41.9 Anxiety disorder, unspecified; F32.A Depression, unspecified; K21.9 Gastro-esophageal reflux disease without esophagitis; E78.5 Hyperlipidemia, unspecified
CPT/HCPCS: 71046; 80053; 84484; 85025; 93005; 99285

== ENCOUNTER 2023-02-09 12:17 | Emergency (ER) | payer MEDICAID, SELFPAY ==
[2023-02-09 12:30] VITALS: BP 173/90; PULSE 74; RESP 19; TEMP 36.9; O2SAT 96; BMI 43.7
[2023-02-09 12:45] LABS: UTC Strep Screen (Rapid) Negative (Negative)
--- NOTE | 2023-02-09 12:50 | EXP.UTC ---
Discharge Plan Disposition Patient Disposition: Home, Self-Care Condition: Good Prescriptions Prescriptions: New amoxicillin 500 mg capsule 500 mg PO TID 10 Days Qty: 30 0RF fluticasone propionate [Flonase Allergy Relief] 50 mcg/actuation spray,suspension 1 - 2 spray intranasal DAILY Qty: 16 0RF Rx Instructions: administer into each nostril daily No Action fluconazole 150 mg tablet 150 mg PO DAILY Qty: 1 0RF Rx Instructions: administer on day 1 of therapy Referrals Follow up/Referrals: Princess Storey APRN [Primary Care Provider] - See instructions Activity Restrictions/Add. Instructions Additional Instructions/Restrictions: *Monitor Temp, Over the counter Motrin or Tylenol as directed/as needed Tylenol every 4 hours and Motrin every 6 hours (as long as your family doctor has told you that you can take it) for fever or pain. and straight to ER if unable to lower temp less than 101.0 after medication given *Warm salt water gargles may help to soothe the throat *Throat Lozenges? *Warm fluids like tea with honey may help to soothe the throat? *Sleep elevated *Humidifier/Vaporizer *Flonase 2 sprays in each nostril daily but be aware that it may take 2-3 days before you notice improvement Your throat swab was sent for culture. Those results are typically sent to your primary care. Be sure to follow up in 2-3 days with your family doctor/primary care physician if no improvement so they can review those result and treat if necessary. If you don?t have a primary care doctor, I recommend you get one but in the mean time, you will have to return to a walk in clinic Follow up IMMEDIATELY for new or worsening symptoms or no Noticeable improvement over the next 48-72 hours. 911 for difficulty breathing or swallowing Clinical Impressions Clinical Impression: Otitis media Qualifiers: Otitis media type: unspecified Laterality: left Qualified Code(s): H66.92 - Otitis media, unspecified, left ear Instructions Patient Instructions: Middle Ear Infection, Ear Infections (Alternative Therapy) Discharge ED Provider: Elise Michelle [facility] General Stated complaint: sore throat, cough, Lt ear pain Mode of Arrival: Ambulatory Source of Information: Patient Limitations: No Limitations Time Seen by Provider: 02/09/23 12:51 Description of Symptoms (Recalled from Triage Doc. by RN): PATIENT C/O COUGH, LEFT EAR PAIN, SORE THROAT, AND SORE TO TOUCH LEFT SIDE OF NECK X 1.5 WEEKS HEENT Symptoms (Recalled from RN notes): Yes Resp Symptoms (Recalled from RN notes): Yes Skin Symptoms (Recalled from RN notes): No MS Symptoms (Recalled from RN notes): No Functional Status (Recalled from RN notes): WNL History of Present Illness Provider Complaint: Patient states that she has been sick for about a week and half states that she has been having pain in her left ear, cough, and sore throat and hurts when she touches the left side of her neck where her tonsils are States that today they was hurting worse so she came in to get checked Related Data Previous Rx's Medication Instructions Recorded fluconazole 150 mg tablet 150 mg PO DAILY 1 dose #1 tab 11/20/22 amoxicillin 500 mg capsule 500 mg PO TID 10 days #30 caps 02/09/23 fluticasone propionate 50 1 - 2 spray intranasal DAILY #16 02/09/23 mcg/actuation nasal grams spray,suspension (Flonase Allergy Relief) Allergies Allergy/AdvReac Type Severity Reaction Status Date / Time adhesive tape Allergy Redness of Verified 09/14/22 10:40 Skin Worker's Comp Is this a Worker's Comp case?: No [facility] Disclaimer: The information contained in this section may have been updated after the patient was seen, as this information can be updated by other users. Medical History Abnormal EKG Allergies Anxiety and depression Diastolic dysfunction Dyspnea Ear infecti
[2023-02-09 13:00] VITALS: BP 173/90; PULSE 74; RESP 19; TEMP 36.9; O2SAT 96
== END 2023-02-09 13:04 | disposition home or self-care (01) ==
PROVIDERS: Emergency Provider Nurse Practitioner; PCP Nurse Practitioner Family
DX: H66.92 Otitis media, unspecified, left ear (principal); R05.9 Cough, unspecified; K21.9 Gastro-esophageal reflux disease without esophagitis; E78.5 Hyperlipidemia, unspecified
CPT/HCPCS: 87880; 99212; 99214; G0463

== ENCOUNTER 2023-02-15 19:06 | Emergency (ER) | payer MEDICAID, SELFPAY ==
[2023-02-15 19:15] VITALS: BP 141/66; PULSE 75; RESP 18; TEMP 37.1; O2SAT 99; BMI 43.7
--- NOTE | 2023-02-15 19:19 | EXP.UTC ---
Discharge Plan Disposition Patient Disposition: Home, Self-Care Condition: Good Prescriptions Prescriptions: New azithromycin [Zithromax] 250 mg tablet 250 mg PO UD DOSE PK Qty: 6 0RF Rx Instructions: Take two (2) tablets today, then one (1) tablet days #2 thru #5 methylprednisolone 4 mg Tablets,Dose Pack 4 mg PO DIRECTED Qty: 21 0RF No Action fluconazole 150 mg tablet 150 mg PO DAILY Qty: 1 0RF Rx Instructions: administer on day 1 of therapy amoxicillin 500 mg capsule 500 mg PO TID 10 Days Qty: 30 0RF fluticasone propionate [Flonase Allergy Relief] 50 mcg/actuation spray,suspension 1 - 2 spray intranasal DAILY Qty: 16 0RF Rx Instructions: administer into each nostril daily Referrals Follow up/Referrals: Adrienne Connors APRN [Primary Care Provider] - See instructions Activity Restrictions/Add. Instructions Additional Instructions/Restrictions: Drink plenty of fluids. Take tylenol or ibuprofen for pain or fever. Take the medications as directed. Follow up with your regular doctor. GO TO THE ER FOR ANY WORSENING SYMPTOMS Clinical Impressions Clinical Impression: Otitis media Instructions Patient Instructions: Middle Ear Infection Discharge ED Provider: Reid Aldrich [facility] General Stated complaint: ear pain and dizzy Time Seen by Provider: 02/15/23 19:18 History of Present Illness Provider Complaint: She states that for the past 2 days she has had bilateral ear pain and sinus congestion. Related Data Previous Rx's Medication Instructions Recorded fluconazole 150 mg tablet 150 mg PO DAILY 1 dose #1 tab 11/20/22 amoxicillin 500 mg capsule 500 mg PO TID 10 days #30 caps 02/09/23 fluticasone propionate 50 1 - 2 spray intranasal DAILY #16 02/09/23 mcg/actuation nasal grams spray,suspension (Flonase Allergy Relief) azithromycin 250 mg tablet 250 mg PO UD DOSE PK #6 tabs 02/15/23 (Zithromax) methylprednisolone 4 mg tablets in 4 mg PO DIRECTED #21 tabs 02/15/23 a dose pack Allergies Allergy/AdvReac Type Severity Reaction Status Date / Time adhesive tape Allergy Redness of Verified 02/15/23 19:24 Skin [facility] Disclaimer: The information contained in this section may have been updated after the patient was seen, as this information can be updated by other users. Medical History Abnormal EKG Allergies Anxiety and depression Diastolic dysfunction Dyspnea Ear infection BIJAN Family history of heart disease Gastroesophageal reflux disease Hiatal hernia History of COVID-19 Hyperlipidemia Kidney stone Migraine Mitral valve prolapse Rectal tear RECTAL TEAR REPAIR Sinus headache Urinary tract infection Surgical History H/O gastric sleeve History of endometrial ablation History of placement of ear tubes BIJAN History of reversal of tubal ligation Hx of cholecystectomy Hx of tubal ligation X2 Family History Father CHF (congestive heart failure) Heart attack Diabetes Hyperlipidemia Mother Diabetes Hyperlipidemia Social History Smoking Status: Never smoker alcohol intake: never substance use type: denies use current occupational status: unemployed Travel in the last 8 weeks: None household members: spouse and family housing: house caffeine: Yes ROS Obtained: Yes All systems reviewed & no additional complaints except as documented Constitutional Constitutional: Denies chills, Reports fever(s) and Reports poor appetite Eyes Eyes: Denies eye discharge ENT Ears, Nose, Mouth, and Throat: Denies ear discharge, Reports otalgia, Denies hearing loss, Denies sinus pain and Reports sore throat Cardiovascular Cardiovascular: Denies chest pain and Denies dyspnea Res
[2023-02-15 19:53] VITALS: BP 141/66; PULSE 75; RESP 18; TEMP 37.1; O2SAT 99
== END 2023-02-15 19:53 | disposition home or self-care (01) ==
PROVIDERS: Emergency Provider Nurse Practitioner Family; PCP Nurse Practitioner Family
DX: H66.93 Otitis media, unspecified, bilateral (principal); R09.81 Nasal congestion; K21.9 Gastro-esophageal reflux disease without esophagitis; E78.5 Hyperlipidemia, unspecified
CPT/HCPCS: 99212; 99214; G0463

== ENCOUNTER 2023-05-21 15:04 | Emergency (ER) | payer MEDICAID, SELFPAY ==
[2023-05-21 16:15] VITALS: BP 156/85; PULSE 70; RESP 18; TEMP 37.1; O2SAT 100; BMI 44.1
--- NOTE | 2023-05-21 16:26 | ED_ITS ---
Discharge Plan Disposition Patient Disposition: Home, Self-Care Condition: Good Prescriptions Prescriptions: New benzonatate [benzonatate] 100 mg capsule 100 mg PO TIDP PRN (Reason: Cough) Qty: 30 0RF ondansetron 4 mg Tablet,Disintegrating 4 mg PO Q8H PRN (Reason: Nausea) Qty: 12 0RF azithromycin [Zithromax] 250 mg tablet 250 mg PO UD DOSE PK Qty: 6 0RF Rx Instructions: Take two (2) tablets today, then one (1) tablet days #2 thru #5 Referrals Follow up/Referrals: Adrienne Connors APRN [Primary Care Provider] - See instructions Activity Restrictions/Add. Instructions Additional Instructions/Restrictions: Drink plenty of fluids. Take tylenol or ibuprofen for pain or fever. Take the medications as directed. Follow up with your regular doctor. GO TO THE ER FOR ANY WORSENING SYMPTOMS Clinical Impressions Clinical Impression: Acute viral syndrome, Bronchitis Instructions Patient Instructions: DI for Viral Syndrome Discharge ED Provider: Reid Aldrich [facility] General Stated complaint: sore throat, GHOTRA, body aches, Time Seen by Provider: 05/21/23 16:26 History of Present Illness Provider Complaint: She states that for the past 1 day she has had nausea, body aches, chills, cough, and sinus congestion. Related Data Previous Rx's Medication Instructions Recorded azithromycin 250 mg tablet 250 mg PO UD DOSE PK #6 tabs 05/21/23 (Zithromax) benzonatate 100 mg capsule 100 mg PO TIDP PRN Cough #30 caps 05/21/23 ondansetron 4 mg disintegrating 4 mg PO Q8H PRN Nausea #12 tabs 05/21/23 tablet Allergies Allergy/AdvReac Type Severity Reaction Status Date / Time adhesive tape Allergy Redness of Verified 05/21/23 16:34 Skin [facility] Disclaimer: The information contained in this section may have been updated after the patient was seen, as this information can be updated by other users. Medical History Abnormal EKG Allergies Anxiety and depression Diastolic dysfunction Dyspnea Ear infection BIJAN Family history of heart disease Gastroesophageal reflux disease Hiatal hernia History of COVID-19 Hyperlipidemia Kidney stone Migraine Mitral valve prolapse Rectal tear RECTAL TEAR REPAIR Sinus headache Urinary tract infection Surgical History H/O gastric sleeve History of endometrial ablation History of placement of ear tubes BIJAN History of reversal of tubal ligation Hx of cholecystectomy Hx of tubal ligation X2 Family History Father CHF (congestive heart failure) Heart attack Diabetes Hyperlipidemia Mother Diabetes Hyperlipidemia Social History Smoking Status: Never smoker alcohol intake: never substance use type: denies use current occupational status: unemployed Travel in the last 8 weeks: None household members: spouse and family housing: house caffeine: Yes ROS Obtained: Yes All systems reviewed & no additional complaints except as documented Constitutional Constitutional: Reports chills and Reports fever(s) Eyes Eyes: Denies eye discharge ENT Ears, Nose, Mouth, and Throat: Reports as per HPI Cardiovascular Cardiovascular: Denies chest pain Respiratory Respiratory: Denies chest congestion and Reports cough Gastrointestinal Gastrointestingal: Reports nausea; Denies abdominal pain, constipation, cramping, diarrhea or vomiting Musculoskeletal Musculoskeletal: Denies arthralgias Integumentary/Breasts Skin/Breast: Denies rash Neurologic Neurologic: Denies paresthesias Physical Exam General General appearance: alert and in no apparent distress Eye Eye exam: Present normal appearance, PERRL and EOMI ENT ENT exam: Present mucous membranes moist and normal external ear exam Expanded ENT Exam External ear exam: Present normal external inspection TM/Canal exam: Bilateral TM: erythema and bulging Nose exam: Absent sinus tenderness Nasal speculum exam: Bilateral: normal Mouth exam: Present normal external inspection; Absent drooling Teeth exam: Present normal inspection Throat exam: Present tonsillar erythema and tonsillomegaly Neck Neck exam: Present normal inspection, full ROM and trachea midline; Absent tenderness, lymphadenopathy or thyromegaly Chest Chest inspection: Present normal inspection and symmetric chest wall rise; Absent tenderness or rash Respiratory Respiratory exam: Present normal lung sounds bilaterally; Absent respiratory distress, wheezes, stridor or accessory muscle use Cardiovascular Cardiovascular exam: Present regular rate, normal rhythm and normal heart sounds Abdominal Exam Abdominal exam: Present soft; Absent distention, tenderness, guarding, rebound or rigidity Extremities Exam Extremities exam: Present normal inspection, full ROM and normal capillary refill; Absent tenderness or calf tenderness Back Exam Back exam: Present normal inspection and full ROM; Absent tenderness Neurological Exam Neurological exam: Present alert and oriented X3 Psychiatric Psychiatric exam: Present normal affect and normal mood Skin Skin exam: Present warm, dry, intact and normal color Lymphatic Lymphatic Findings: no adenopathy Medical Decision Making Medical Records Medical records reviewed: No I reviewed the patient's medical records. Emanuel Inquiry Pt receiving controlled substance: No Lab Data Lab results reviewed: Yes I reviewed the patient's lab results.
[2023-05-21 16:59] LABS: UTC Influenza A Antigen Negative (Negative); UTC Influenza B Antigen Negative (Negative); UTC Strep Screen (Rapid) Negative (Negative)
[2023-05-21 17:12] VITALS: BP 156/85; PULSE 70; RESP 18; TEMP 37.1; O2SAT 100
== END 2023-05-21 17:13 | disposition home or self-care (01) ==
PROVIDERS: Emergency Provider Nurse Practitioner Family; PCP Nurse Practitioner Family
DX: J20.8 Acute bronchitis due to other specified organisms (principal); R50.9 Fever, unspecified; R05.9 Cough, unspecified; R09.81 Nasal congestion; R11.0 Nausea; B34.9 Viral infection, unspecified; K21.9 Gastro-esophageal reflux disease without esophagitis; E78.5 Hyperlipidemia, unspecified
CPT/HCPCS: 87804; 87880; 99212; 99214; G0463

== ENCOUNTER 2023-06-20 16:45 | Outpatient (CLI) | payer MEDICAID, SELFPAY ==
--- NOTE | 2023-06-20 16:48 | MM_ITS ---
PROCEDURE INFORMATION: Exam: MG Bilateral Screening 3D Mammography Exam date and time: 06/20/2023 4:35 PM Age: 53 years old Clinical indication: Screening examination . Family history of breast carcinoma. TECHNIQUE: Imaging protocol: Bilateral Screening tomosynthesis and 2D mammography including computer-aided detection (CAD) when performed. COMPARISON: 1. MG MM DIG SCREENING MAMM BI W/CAD 05/24/2022 3:41 PM 2. MG SCBI MM Dig screening mamm BI w/CAD 05/17/2018 4:07 PM 3. MG DMSB DIG MAMM-SCREEN BIJAN W/CAD 04/21/2016 4:57 PM FINDINGS: MAMMOGRAPHY: Breast composition: There are scattered areas of fibroglandular density. Mass: No suspicious masses. Architectural distortion: No suspicious distortion. Calcifications: No suspicious calcifications. Asymmetric density: None. Skin thickening: None. Axillary adenopathy: None. IMPRESSION: 1. No mammographic evidence of malignancy. Annual screening is recommended unless otherwise clinically indicated. 2. Given the reported risk factors for this patient, a breast cancer risk assessment may prove useful for further evaluation. ASSESSMENT: BI-RADS Category 1: Negative
== END 2023-06-20 23:59 ==
LOC: RAD 16:46
PROVIDERS: PCP Nurse Practitioner Family; Visit Provider Nurse Practitioner Family
DX: Z12.31 Encounter for screening mammogram for malignant neoplasm of breast (principal)
CPT/HCPCS: 77063; 77067

== ENCOUNTER 2023-07-14 17:19 | Emergency (ER) | payer MEDICAID, SELFPAY ==
[2023-07-14 17:30] VITALS: BP 131/83; PULSE 73; RESP 17; TEMP 36.9; O2SAT 97; BMI 44.9
--- NOTE | 2023-07-14 17:37 | EXP.UTC ---
Discharge Plan Disposition Patient Disposition: Home, Self-Care Condition: Good Prescriptions Prescriptions: New prednisone 20 mg tablet 20 mg PO BID 3 Days Qty: 6 0RF amoxicillin 875 mg tablet 875 mg PO Q12H Qty: 20 0RF benzonatate 100 mg capsule 100 mg PO TIDP PRN (Reason: Cough) Qty: 30 0RF Referrals Follow up/Referrals: Adrienne Connors APRN [Primary Care Provider] - See instructions Activity Restrictions/Add. Instructions Additional Instructions/Restrictions: Drink plenty of fluids. Take tylenol or ibuprofen for pain or fever. Take the medications as directed. Follow up with your regular doctor. GO TO THE ER FOR ANY WORSENING SYMPTOMS Throw your tooth brush away and get a new one. Clinical Impressions Clinical Impression: Strep pharyngitis Instructions Patient Instructions: Strep Throat, DI for Strep Throat Discharge ED Provider[place] Ald[place] [facility] [place] General Stated complaint: sore throat, bilateral ear pain Time Seen by Provider: 07/14/23 17:37 History of Present Illness Provider Complaint: She states that for the past 2 days she has had sore throat, malaise, low grade fever and a dry cough. Related Data Previous Rx's Medication Instructions Recorded amoxicillin 875 mg tablet 875 mg PO Q12H #20 tabs 07/14/23 benzonatate 100 mg capsule 100 mg PO TIDP PRN Cough #30 caps 07/14/23 prednisone 20 mg tablet 20 mg PO BID 3 days #6 tabs 07/14/23 Allergies Allergy/AdvReac Type Severity Reaction Status Date / Time adhesive tape Allergy Redness of Verified 05/21/23 16:[address] [facility] Disclaimer: The information contained in this section may have been updated after the patient was seen, as this information can be updated by other users. Medical History Abnormal EKG Allergies Anxiety and depression Diastolic dysfunction Dyspnea Ear infection BIJAN Family history of heart disease Gastroesophageal reflux disease Hiatal hernia History of COVID-19 Hyperlipidemia Kidney stone Migraine Mitral valve prolapse Rectal tear RECTAL TEAR REPAIR Sinus headache Urinary tract infection Surgical History H/O gastric sleeve History of endometrial ablation History of placement of ear tubes BIJAN History of reversal of tubal ligation Hx of cholecystectomy Hx of tubal ligation X2 Family History Father CHF (congestive heart failure) Heart attack Diabetes Hyperlipidemia Mother Diabetes Hyperlipidemia Social History Smoking Status: Never smoker alcohol intake: never substance use type: denies use current occupational status: unemployed Travel in the last 8 weeks: None household members: spouse and family housing: house caffeine: Yes ROS Obtained: Yes All systems reviewed & no additional complaints except as documented Constitutional Constitutional: Reports chills and Reports fever(s) Eyes Eyes: Denies eye discharge ENT Ears, Nose, Mouth, and Throat: Reports as per HPI Cardiovascular Cardiovascular: Denies chest pain Respiratory Respiratory: Denies chest congestion and Reports cough Gastrointestinal Gastrointestingal: Reports nausea; Denies abdominal pain, constipation, cramping, diarrhea or vomiting Musculoskeletal Musculoskeletal: Denies arthralgias Integumentary/Breasts Skin/Breast: Denies rash Neurologic Neurologic: Denies paresthesias Physical Exam General General appearance: alert and in no apparent distress Head Head exam: atraumatic, normocephalic and normal inspection Eye Eye exam: Present normal appearance, PERRL and EOMI ENT ENT exam: Present mucous membranes moist and normal external ear exam Expanded ENT Exam TM/Canal exam: Bilateral TM: erythema and bulging Nose exam: Absent sinus tenderness Mouth exam: Present normal external inspection; Absent drooling Teeth exam: Present normal inspection Throat exam: Present tonsillar erythema, tonsillomegaly and tonsillar exudate Neck Neck exam: Present normal inspection, full ROM and trachea midline; Absent tenderness, meningismus or lymphadenopathy Chest Chest inspection: Present normal inspection and symmetric chest wall rise; Absent tenderness Respiratory Respiratory exam: Present normal lung sounds bilaterally; Absent respiratory distress, wheezes or stridor Cardiovascular Cardiovascular exam: Present regular rate and normal rhythm; Absent systolic murmur or diastolic murmur Abdominal Exam Abdominal exam: Present soft and normal bowel sounds; Absent distention, tenderness, guarding, rebound or rigidity Extremities Exam Extremities exam: Present normal inspection and normal capillary refill; Absent calf tenderness Back Exam Back exam: Present normal inspection and full ROM; Absent tenderness, CVA tenderness (R) or CVA tenderness (L) Neurological Exam Neurological exam: Present alert, oriented X3 and CN II-XII intact Psychiatric Psychiatric exam: Present normal affect and normal mood Skin Skin exam: Present warm, dry, intact and normal color Medical Decision Making Medical Records Medical records reviewed: No I reviewed the patient's medical records. Emanuel Inquiry Pt receiving controlled substance: No Lab Data Lab results reviewed: Yes I reviewed the patient's lab results.
[2023-07-14 17:41] LABS: UTC Strep Screen (Rapid) Positive (Negative)
[2023-07-14 17:42] VITALS: BP 131/83; PULSE 73; RESP 17; TEMP 36.9; O2SAT 97
== END 2023-07-14 18:12 | disposition home or self-care (01) ==
PROVIDERS: Emergency Provider Nurse Practitioner Family; PCP Nurse Practitioner Family
DX: J02.0 Streptococcal pharyngitis (principal); R07.0 Pain in throat; R50.9 Fever, unspecified; R05.9 Cough, unspecified; K21.9 Gastro-esophageal reflux disease without esophagitis; E78.5 Hyperlipidemia, unspecified; I10 Essential (primary) hypertension
CPT/HCPCS: 87880; 99212; 99214; G0463

== ENCOUNTER 2023-09-07 17:00 | Outpatient (RCR) | payer MEDICAID, SELFPAY ==
--- NOTE | 2023-06-26 18:04 | HMH.PTOPEV ---
PT Outpatient Evaluation Rehab PT Outpatient Evaluation Start: 06/26/23 16:52 Freq: Status: Active Protocol: Document 06/26/23 16:52 PETR (Rec: 06/26/23 18:04 PETR [id number]) E-signed By Evelin Zamudio, PT Outpatient Therapy Subjective History Subjective History Pt is a 53 y/o female who reports chronic central low back pain for 3-4 years. Pt reports no change in pain since onset. Pt denies injury or trauma. Pt reports the last xray of her low back wasin 2019 showing arthritis. Pt reports pain is worse in the mornings. Pt reports she is getting minimal sleep due to inability to get comfortable at night time. Pt reports pain is aggravated by prolonged sitting, sit to stand transfer after prolonged sitting, prolonged standing, prolonged walking, housework, bending forward, and lifting. Pt reports 2 instances in the last 4 months of sharp, shooting pain into the lateral right thigh that is brief in nature. Pt denies numbness/ tingling, b/b dysfunction, or saddle anesthesia. Medical History: Restless leg/ arm syndrome, Hx gastric sleeve surgery 2020 New diagnosis of cancer in past 12 No months? Chief Complaint Pain,Stiff Symptom Type Ache,Sharp Symptoms Relieved By Rest/Positioning,Heat Symptoms Aggravated By Prone,Supine,Sitting,Standing, Bending/Stooping,Physical Activity,Walking,Lifting Current Functional Limitations Lifting,Housework,Sleeping, Standing,Sitting,Squatting, Walking,Bending/Stooping Symptom Description Constant but Variable Level of pain today (0-10) 5 Pain scale - at its best (0-10) 4 Pain scale - at its worst (0-10) 8 Lumbopelvic Eval Assistive device Assistive Devices None / NA Palapation tenderness bilateral lumbar spinal tenderness Yes: L4, L5, S1 paraspinal tenderness Yes buttock tenderness Yes: R>L Lumbar/Sacral Palpation Findings Tenderness Lumbar/Sacral Palpation Overall Comment 4/4 Accessory Movement L-spine Vertebrae Accessory Movements Central P/A [place] that Elicit Symptoms L4 bilateral L5 bilateral S1 bilateral Range of Motion Lumbar Spine Active Flexion Range of 95 Motion (degrees) Lumbar Spine Active Extension Range of 15 Motion (degrees) Left Lumbar Spine Lateral Flexion Active 20 Range of Motion (degrees) Right Lumbar Spine Lateral Flexion 20 Active Range of Motion (degrees) Manual Muscle Test Bilateral Knee Extension Strength Grade 5 Normal Knee Flexion Strength Grade 5 Normal Hip Flexion Strength Grade 4- Good- Hip Abduction Strength Grade 4- Good- Hip Adduction Strength Grade 4 Good Hip Extension Strength Grade 4- Good- Ankle Dorsiflexion Strength Grade 5 Normal DTR Rt Patellar 1+ Lt Patellar 2+ Rt Gastroc/Soleus 2+ Lt Gastroc/Soleus 2+ Altered Sensation Bilateral Comment equal and intact to light touch sensation Special Tests Hip Jonathan (DOLLY) Test Negative Left,Negative Right Hip Piriformis Test Negative Left,Negative Right Sciatic Nerve Tension Test Negative Left,Negative Right Unilateral Straight Leg Raise (Lasegue) Negative Left,Negative Right Test Oswestry Index Section 1 Pain Intensity The pain comes and goes and is severe Section 2 Personal Care (Washing,Dresing) change my way of washing or dressing in order to avoid pain Section 3 Lifting I can lift heavy weights, but it gives me extra pain Section 4 Walking I have some pain when walking but it does not increase with distance Section 5 Sitting Pain prevents me from sitting for more than one hour Section 6 Standing I cannot stand more than 1 hour without increasing pain Section 7 Sleeping Because of my pain, my normal night's sleep is less than 4 hours Section 8 Social Life My social life is normal but increases the degree of pain Section 9 Traveling I get some pain when traveling , but none of my usual forms of travel m Section 10 Changing Degreee of Pain My pain is neither getting better or worse Score and Risk Level Oswestry Sc 18 Oswestry Risk Level Moderate Disability Outpatient Therapy Assessment Impairments Problems/Impairmments Palpation Tenderness,Impaired Range of Motion,Impaired Strength,Impaired Walking, Impaired Standing,Impaired Sitting,Impaired Lifting, Impaired Household Care, Impaired Squatting,Impaired Bending,Subjective C/O Pain, Impaired Self Care/Self Management Prognosis Rehab Potential Good Clinical Impression Consistent with Diagnosis Yes Short Term Goals Number of Weeks 3 Decrease Subjective C/O Pain Yes: Improve pain at worst to 6/10 to improve overall QOL Improve Self Care/Self Management Yes Patient to be Ind w/ HEP Yes Prison Goals Number of Weeks 6 Decreased Palpation Tenderness Yes: 1/4 TTP of L4,L5, S1 and gluteal mm Increase Range of Motion Yes: Improve lumbar ext & LF AROM to 25 Increase Strength Yes: Improve LE MMT to 4+-5/5 grossly to assist with function Improve Oswestry Score Yes: Improve score to 13 or less to improve overall QOL Decrease Subjective C/O Pain Yes: Improve pain at worst to 4/10 to improve overall QOL Outpatient Therapy Plan of Care Treatment Plan May Include Therapeutic Exercise Including Home Yes Exercise Program Manual Therapy Techniques Yes Neuromuscular Re-education Yes Therapeutic Activities to Return to Yes Previous Functional/Work Level ADL/Self Care Education Yes Mechanical Traction Yes Dry Needling Yes Thermal Modalities Yes Electrical Stimulation Yes Ultrasound/Phonophoresis Yes Iontophoresis Yes Massage Yes Eval/Re-Eval Yes Frequency Times per week 2 Duration Number of Weeks 4-6 Addendums This patient is a candidate for social No or vocational rehab? Patient/Guardian verbally acknowledges Yes understanding of treatment program and consents to further treatment? Patient/Guardian verbally acknowledges Yes understanding of diagnosis, prognosis and goals for treatment? Eval Complexity PT Charges 40624 - Low Complexity Shoulder/Elbow Eval Shoulder Objective Measurements Elbow Objective Measurements PHYSICIAN CERTIFICATION: I certify the specified therapy services for Zaida Crowell are required, authorized, and reviewed every 30 days.
--- NOTE | 2023-07-27 18:07 | HMH.RHREAS ---
Rehab Reassessment Rehab OP Re-assessment Start: 06/26/23 16:52 Freq: Status: Active Protocol: Document 07/27/23 16:55 KIRBYKARINA (Rec: 07/27/23 18:07 PETR [id number]) E-signed By Evelin Zamudio, PT Oswestry Index Section 1 Pain Intensity The pain comes and goes and is severe Section 2 Personal Care (Washing,Dresing) my way of washing or dressing even though it causes some pain Section 3 Lifting I can lift heavy weights, but it gives me extra pain Section 4 Walking I cannot walk more than one mile wihtout increasing pain Section 5 Sitting I can sit in any chair for as long as I like Section 6 Standing I cannot stand more than 1 hour without increasing pain Section 7 Sleeping Because of my pain, my normal night's sleep is less than 4 hours Section 8 Social Life Pain has no significant effect on my social life apart from limiting Section 9 Traveling I get some pain when traveling , but none of my usual forms of travel m Section 10 Changing Degreee of Pain My pain is neither getting better or worse Score and Risk Level Oswestry Sc 19 Oswestry Risk Level Moderate Disability Rehab Re-assessment Subjective Subjective Pt reports she feels 50% improved since starting PT. 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 Pt reports she performs her HEP when she has time, but not as prescribed. Pt reports her back does feel better after performing her HEP and with activity. Objective Objective Notes Lumbar AROM: 95 flex, 25, ext, 20 LF LE MMT: 4/5 grossly Assessment Assessment Notes Pt has attended 6 PT visits consisting of aerobic exercise , lumbar mobility, LE stretching/strengthening, core strengthening, modalities, and HEP with good tolerance. Pt demonstrated improved lumbar extension AROM and LE strength this date compared to the initial evaluation. Pt continues to report moserate- severe central low back pain with periods of inactivity and flexion based activities such as housework. Overall, the pt would continue to benefit from skilled PT to further improve subjective report of pain, lumbar AROM, LE/core strength, and functional activity tolerance to improve overall QOL. Patient goals met ST/3 Goals Not Met HEP compliance, pain severity at worst Revised Goals n/a Plan Plan Continue initial POC Frequency of Therapy 2x/week Duration of therapy 2-4 more weeks Time and Billing Re-Eval Time 10 Re-Eval Billing Units 1 PHYSICIAN CERTIFICATION: I certify the specified therapy services for Zaida Crowell are required, authorized, and reviewed every 30 days.
== END 2023-09-07 18:00 | disposition home or self-care (01) ==
LOC: PT 17:00
PROVIDERS: Visit Provider Nurse Practitioner Family
DX: M54.50 Low back pain, unspecified (principal)
CPT/HCPCS: 97010; 97014; 97110; 97163; 97164; 97530; G0283

== ENCOUNTER 2023-09-22 06:24 | Day surgery (SDC) | payer MEDICAID, SELFPAY ==
[2023-09-20 14:27] VITALS: BMI 43.7
[2023-09-22] VITALS (7 sets, daily range): BP systolic 94–136; BP diastolic 49–76; PULSE 61–76; RESP 14–18; TEMP 36.1–37.1; O2SAT 97–100; BMI 43.4
--- NOTE | 2023-09-22 07:05 | P.PNANES_ITS ---
[facility] Disclaimer: The information contained in this section may have been updated after the patient was seen, as this information can be updated by other users. Medical History Ear infection Anxiety and depression Mitral valve prolapse Rectal tear Kidney stone Urinary tract infection History of COVID-19 Migraine Sinus headache Allergies Hyperlipidemia Diastolic dysfunction Family history of heart disease Abnormal EKG Hiatal hernia Gastroesophageal reflux disease Dyspnea Surgical History History of endometrial ablation H/O gastric sleeve History of placement of ear tubes Hx of cholecystectomy History of reversal of tubal ligation Hx of tubal ligation Family History Father CHF (congestive heart failure) Heart attack Diabetes Hyperlipidemia Mother Diabetes Hyperlipidemia Social History Smoking Status: Never smoker alcohol intake: never substance use type: denies use current occupational status: unemployed Travel in the last 8 weeks: None household members: spouse and family housing: house caffeine: No H Anesthesia Checklist Patient Identification Patient Identification: Arm Band and Verbal (Name & ) Structural Data Admitted From: Home Planned Operative Procedure/s: Colonoscopy Consent for Planned Operative Procedure(s) Verified: Yes Verified Documents: Surgical Consent and History and Physical NPO Status Verified Time NPO: 00:00 Additional verifications Anesthesia Reactions: No Hx Blood Transfusions: No Blood Transfusion Reaction: No Airway Assessment Mallampati Score:: Class II C-Spine Mobility Assessed: Yes TMJ Mobility Assessed: Yes Dentition: Poor Dentition (Loose dentition on top right. Patient understands and verbalizes risk of damage to teeth in case of insertion of oral airway.) Neurological Assessment Level of Consciousness: Awake Hx Seizures: No Numbness or tingling in extremities: No Anesthesia Plan Anesthesia Risk discussed: Yes Anesthesia Plan: Verified ASA Class: III Anesthesia Type: MAC
--- NOTE | 2023-09-22 07:47 | HMH.SCOPE ---
Procedure: Date: 09/22/23 Patient Date of :: 1970 Procedure Performed:: Colonoscopy to ileocecal valve/cecum Indications:: Patient is a 53-year-old female who presents for initial screening colonoscopy. . Performing Provider:: Michael Simms MD Referring Provider:: Lora Reynolds Sedation:: MAC sedation Procedure:: Patient history was obtained and appropriate physical examination was performed. Patient's medications and allergies were reviewed. Informed consent was obtained after explaining the benefits, alternatives, and risks of the procedure including, but not limited to, bleeding, perforation, missed lesions, and adverse reaction to anesthesia medications. Patient was transported to endoscopy procedure room. Patient was connected to monitoring devices. Throughout the procedure the patient's blood pressure, pulse, and oxygen saturations were monitored continuously. Patient identification and planned procedure were verified by the staff. Patient was positioned in lateral decubitus position. Digital anorectal exam was performed. Variable stiffness Olympus colonoscope was inserted and advanced under direct visualization to the cecum. Adequacy of the colonic preparation was noted. The colonoscope was advanced to the cecum. The colonoscope was then slowly withdrawn while carefully examining the color, texture, anatomy, and integrity of the mucosoa circumferentially. Within the rectum retroflexion was performed. Colonoscope was then withdrawn. Impression: Colonoscope was advanced to the cecum. Ileocecal valve was identified. Colonoscope was not advanced into the terminal ileum. There was a fairly large amount of particulate liquid stool with some undigested vegetable matter and legumes. High-volume trans colonoscopic irrigation and suctioning was performed throughout the colon that allowed for decent visualization. There were no polyps or diverticuli noted. Retroflexion within the rectum revealed minimal internal hemorrhoids. Colonoscope was withdrawn. . Findings:: Fair preparation Minimal hemorrhoids . Recommendations:: Given the somewhat suboptimal preparation I would advocate to repeat colonoscopy in approximately 3 years. Complications:: None Estimated blood obtained (mL): 0 Colonoscopy Component Colonoscopy Component Was a colonoscopy performed during today's procedure?: Yes Recommended follow up colonoscopy of at least 10 years?: No If no, follow up colonoscopy recommended in ___ years?: 3 Reason for not recommending >/= 10 yr follow-up interval?: Prep
== END 2023-09-22 08:20 | disposition home or self-care (01) ==
PROVIDERS: PCP Nurse Practitioner Family; Visit Provider Surgery
PROC: 0DJD8ZZ Inspection of Lower Intestinal Tract, Via Natural or Artificial Opening Endoscopic (ICD-10-PCS; CPT 45378; principal; 2023-09-22 07:30)
DX: Z12.11 Encounter for screening for malignant neoplasm of colon (principal); K64.9 Unspecified hemorrhoids
CPT/HCPCS: 45378

== ENCOUNTER 2024-02-04 12:25 | Emergency (ER) | payer MEDICAID, SELFPAY ==
[2024-02-04 12:35] VITALS: BP 147/82; PULSE 66; RESP 18; TEMP 36.7; O2SAT 98; BMI 45.1
--- NOTE | 2024-02-04 12:38 | XR_ITS ---
PROCEDURE INFORMATION: Exam: XR Right Knee Exam date and time: 02/04/2024 12:33 PM Age: 53 years old Clinical indication: Pain; Knee; Right TECHNIQUE: Imaging protocol: Radiologic exam of the right knee. Views: 3 views. COMPARISON: MR ANKLE RT WO/W CON 05/24/2021 4:05 PM FINDINGS: Bones/joints: Normal. Soft tissues: Normal. IMPRESSION: No acute findings.
--- NOTE | 2024-02-04 12:52 | ED_ITS ---
Discharge Plan Disposition Patient Disposition: Home, Self-Care Condition: Good Prescriptions Prescriptions: New amoxicillin 500 mg capsule 500 mg PO TID 7 Days Qty: 21 0RF Referrals Follow up/Referrals: Adrienne Connors APRN [Primary Care Provider] - See instructions Activity Restrictions/Add. Instructions Additional Instructions/Restrictions: *Monitor Temp, Over the counter Motrin or Tylenol as directed/as needed Tylenol every 4 hours and Motrin every 6 hours (as long as your family doctor has told you that you can take it) for fever or pain. and straight to ER if unable to lower temp less than 101.0 after medication given *Warm salt water gargles may help to soothe the throat *Throat Lozenges? *Warm fluids like tea with honey may help to soothe the throat? *Sleep elevated *Humidifier/Vaporizer Follow up IMMEDIATELY for new or worsening symptoms or no Noticeable improvement over the next 48-72 hours. 911 for difficulty breathing or swallowing Clinical Impressions Clinical Impression: Otitis media Qualifiers: Otitis media type: unspecified Laterality: right Qualified Code(s): H66.91 - Otitis media, unspecified, right ear Instructions Patient Instructions: Middle Ear Infection, How to Apply an Raghu Wrap, DI for Knee Pain Print Language Print Language: Salvadorean Discharge ED Provider[place]ise Michelle [facility] [place] General Stated complaint: knot on right knee w/pain Mode of Arrival: Ambulatory Source of Information: Patient Limitations: No Limitations Time Seen by Provider: 02/04/24 12:57 Description of Symptoms (Recalled from Triage Doc. by RN): PATIENT C/O LEFT EAR PAIN, SNEEZING, COUGH, AND SORE THROAT X 4 DAYS. SHE ALSO C/O KNOT TO RIGHT KNEE AFTER SHE KNELT DOWN ONTO A PLASTIC PERFECTION GAME PIECE 2 DAYS AGO HEENT Symptoms (Recalled from RN notes): Yes Resp Symptoms (Recalled from RN notes): Yes Skin Symptoms (Recalled from RN notes): No MS Symptoms (Recalled from RN notes): Yes Functional Status (Recalled from RN notes): WNL History of Present Illness Provider Complaint: Patient states that she has been having bilateral ear pain worse in left, sneezing, cough and sore scratchy throat States that she also is having pain in her right knee and has a knot on it Denies falling or anything but did squat down on toy piece not sure if it done something to her right knee or not Related Data Previous Rx's ?Medication ?Instructions ?Recorded amoxicillin 500 mg capsule 500 mg PO TID 7 days #21 caps 02/04/24 Allergies Allergy/AdvReac Type Severity Reaction Status Date / Time adhesive tape Allergy Redness of Verified 09/22/23 06:59 Skin Worker's Comp Is this a Worker's Comp case?: [facility] Disclaimer: The information contained in this section may have been updated after the patient was seen, as this information can be updated by other users. Medical History Ear infection Anxiety and depression Mitral valve prolapse Rectal tear Kidney stone Urinary tract infection History of COVID-19 Migraine Sinus headache Allergies Hyperlipidemia Diastolic dysfunction Family history of heart disease Abnormal EKG Hiatal hernia Gastroesophageal reflux disease Dyspnea Surgical History History of endometrial ablation H/O gastric sleeve History of placement of ear tubes Hx of cholecystectomy History of reversal of tubal ligation Hx of tubal ligation Family History Father CHF (congestive heart failure) Heart attack Diabetes Hyperlipidemia Mother Diabetes Hyperlipidemia Social History Smoking Status: Never smoker alcohol intake: never substance use type: denies use current occupational status: unemployed Travel in the last 8 weeks: None household members: spouse and family housing: house caffeine: No ROS Obtained: Yes All systems reviewed & no additional complaints except as documented and Yes Systems reviewed as appropriate & no additional complaints except as documented Constitutional Constitutional: Reports system reviewed and no additional complaints, except as documented and Reports as per HPI ENT Ears, Nose, Mouth, and Throat: Reports system reviewed and no additional complaints, except as documented, Reports as per HPI, Reports otalgia, Reports nasal congestion and Reports nasal discharge Cardiovascular Cardiovascular: Reports system reviewed and no additional complaints, except as documented and Reports as per HPI Respiratory Respiratory: Reports system reviewed and no additional complaints, except as documented, Reports as per HPI, Denies shortness of breath and Reports cough Musculoskeletal Musculoskeletal: Reports system reviewed and no additional complaints, except as documented, Reports as per HPI and Reports other (pain and a knot on the side of her right knee ) Physical Exam General General appearance: alert and in no apparent distress ENT ENT exam: Present mucous membranes moist Expanded ENT Exam TM/Canal exam: Right TM: erythema and Bilateral TM: bulging Nose exam: Absent sinus tenderness Throat exam: Present normal inspection Respiratory Respiratory exam: Present normal lung sounds bilaterally; Absent respiratory distress or wheezes Cardiovascular Cardiovascular exam: Present regular rate, normal rhythm and normal heart sounds Expanded Lower Extremity Exam Right: Knee exam: Present tenderness; Absent swelling, abrasion, laceration, ecchymosis or erythema Lower leg exam: Present normal inspection Ankle exam: Present normal inspection Foot/toe exam: Present normal inspection Neurovascular/Tendon exam: Present normal capillary refill Gait: observed and normal Neurological Exam Neurological exam: Present alert, oriented X3 and normal gait Medical Decision Making Medical Records Screening: Per USPSTF and CDC recommendations, given the prevalence of disease in our region, it is our hospital?s policy to screen for HIV and viral Hepatitis for all patients aged 18 and over and those with ongoing risk factors. Emanuel Inquiry Pt receiving controlled substance: No Emanuel was queried for this patient: No Vital Signs: 02/04/24 12:35 Temperature 98.0 F Temperature Source Oral Pulse Rate [Left Brachial] 66 Respiratory Rate 18 Blood Pressure [Left Arm] 147/82 H Blood Pressure Mean [Left Arm] 103 Blood Pressure Source [Left Arm] Automatic Cuff Blood Pressure Position [Left Arm] Sitting 02 Sat by Pulse Oximetry 98 Oxygen Delivery Method Room Air Orders (Tests/Meds): ORDERS Category Date Time Status XR knee RT 3V Stat Exams 02/04/24 12:38 Taken Radiology Data #1: Image(s): Knee Image Reviewed: Yes I have reviewed radiologist's interpretation IMPRESSION: No acute findings.
[2024-02-04 13:00] LABS: UTC Strep Screen (Rapid) Negative (Negative)
[2024-02-04 14:04] VITALS: BP 147/82; PULSE 66; RESP 18; TEMP 36.7; O2SAT 98
== END 2024-02-04 14:06 | disposition home or self-care (01) ==
PROVIDERS: Emergency Provider Nurse Practitioner; PCP Nurse Practitioner Family
DX: H66.91 Otitis media, unspecified, right ear (principal)
CPT/HCPCS: 73562; 87880; 99213; G0381

== ENCOUNTER 2024-02-10 14:56 | Emergency (ER) | payer MEDICAID, SELFPAY ==
[2024-02-10 14:58] VITALS: BP 150/86; PULSE 78; RESP 18; TEMP 37.2; O2SAT 99; BMI 45.1
--- NOTE | 2024-02-10 15:07 | PC.NURSE ---
DR OATES AT BEDSIDE
--- NOTE | 2024-02-10 15:12 | XR_ITS ---
PROCEDURE INFORMATION: Exam: XR Left Wrist Exam date and time: 02/10/2024 3:10 PM Age: 53 years old Clinical indication: Injury or trauma; Fall; Blunt trauma (contusions or hematomas); Wrist; Left; Additional info: Fall, injury TECHNIQUE: Imaging protocol: Radiologic exam of the left wrist. Views: 3 or more views. Frontal Oblique Lateral COMPARISON: CR XR ELBOW LT MIN 3V 09/24/2021 1:32 PM FINDINGS: Bones/joints: Radiopaque density ring overlies the proximal fourth digit. This obscures visualization of digits on multiple views. Bony structures appear otherwise unremarkable. No visualized evidence for acute bony fracture or dislocation. Soft tissues: The soft tissue appear unremarkable. Notes: If there is further concern, followup radiographs or MRI of the wrist may be performed for complete assessment. IMPRESSION: No acute abnormality identified.
--- NOTE | 2024-02-10 15:12 | XR_ITS ---
PROCEDURE INFORMATION: Exam: XR Left Knee Exam date and time: 02/10/2024 3:10 PM Age: 53 years old Clinical indication: Injury or trauma; Fall; Blunt trauma; Knee; Left; Additional info: Fall injury TECHNIQUE: Imaging protocol: Radiologic exam of the left knee. Views: 3 views. AP Obilque Lateral COMPARISON: CR [id number] XR knee LT 3V 09/30/2017 10:03 AM FINDINGS: Bones/joints: Mild to moderate generalized bony degenerative changes. No visualized evidence for acute bony fracture or dislocation. Bony structures appear otherwise unremarkable. No joint effusion is demonstrated. Soft tissues: Mild soft tissue edema. The soft tissues appear otherwise unremarkable. Notes: If there is further concern, recommend follow-up radiographs or MRI for complete assessment. IMPRESSION: 1. No acute bony abnormality identified. 2. Mild soft tissue edema.
--- NOTE | 2024-02-10 15:19 | ED_ITS ---
Discharge Plan Disposition Patient Disposition: Home, Self-Care Prescriptions Prescriptions: No Action amoxicillin 500 mg capsule 500 mg PO TID 7 Days Qty: 21 0RF Referrals Follow up/Referrals: Adrienne Connors APRN [Primary Care Provider] - See instructions Activity Restrictions/Add. Instructions Additional Instructions/Restrictions: No evidence of fracture or dislocation please take Tylenol and ibuprofen as needed for your symptoms please return with any significant worsening. Clinical Impressions Clinical Impression: Contusion of knee, left, Left wrist sprain Print Language Print Language: Faroese Discharge ED Provider: Hari Farah General Adult HPI General Chief complaint: Extremity Injury, Lower Stated complaint: AO 02/08/24-Pain L wrist, R knee, both sides Time Seen by Provider: 02/10/24 15:06 Mode of Arrival: Ambulatory Source of Information: Patient Limitations: No Limitations Description of Symptoms (Recalled from ER Triage Doc. by RN): left wrist and knee pain after fall on sidewalk History of Present Illness HPI narrative: Patient is a 53-year-old female who presents today after a fall 2 days ago. She states that she has left wrist and left knee pain subsequently. Has been able to walk and bear weight but with difficulty. Denies injuries elsewhere. Related Data Previous Rx's ?Medication ?Instructions ?Recorded amoxicillin 500 mg capsule 500 mg PO TID 7 days #21 caps 02/04/24 Allergies Allergy/AdvReac Type Severity Reaction Status Date / Time adhesive tape Allergy Redness of Verified 09/22/23 06:59 Skin [facility] Disclaimer: The information contained in this section may have been updated after the patient was seen, as this information can be updated by other users. Medical History Ear infection Anxiety and depression Mitral valve prolapse Rectal tear Kidney stone Urinary tract infection History of COVID-19 Migraine Sinus headache Allergies Hyperlipidemia Diastolic dysfunction Family history of heart disease Abnormal EKG Hiatal hernia Gastroesophageal reflux disease Dyspnea Surgical History History of endometrial ablation H/O gastric sleeve History of placement of ear tubes Hx of cholecystectomy History of reversal of tubal ligation Hx of tubal ligation Family History Father CHF (congestive heart failure) Heart attack Diabetes Hyperlipidemia Mother Diabetes Hyperlipidemia Social History Smoking Status: Never smoker alcohol intake: never substance use type: denies use current occupational status: unemployed Travel in the last 8 weeks: None household members: spouse and family housing: house caffeine: No Other Medical History Have you received the Flu Vaccine for this season: No Have you received the Pneumonia Vaccine: No ROS Obtained: Yes All systems reviewed & no additional complaints except as documented Physical Exam General General appearance: alert and in no apparent distress Respiratory Respiratory exam: Present normal lung sounds bilaterally; Absent respiratory distress Cardiovascular Cardiovascular exam: Present regular rate; Absent normal rhythm Extremities Exam Extremities exam: Present other (Patient has full range of motion of the left wrist and knee but she is tender to palpation on the ulnar styloid region of the left wrist has some superficial bruising just inferior to her patella on the left side no effusions ligamental exams normal) Neurological Exam Neurological exam: Present alert and oriented X3 Medical Decision Making Medical Records Screening: Per USPSTF and CDC recommendations, given the prevalence of disease in our region, it is our hospital?s policy to screen for HIV and viral Hepatitis for all patients aged 18 and over and those with ongoing risk factors. Emanuel Inquiry Pt receiving controlled substance: No Vital Signs: 02/10/24 14:58 02/10/24 15:31 Temperature 99 F Temperature Source Oral Pulse Rate 79 Pulse Rate [Right] 78 Respiratory Rate 18 Blood Pressure 135/80 Blood Pressure [Right Arm] 150/86 H Blood Pressure Mean 98 Blood Pressure Mean [Right Arm] 107 02 Sat by Pulse Oximetry 99 98 Oxygen Delivery Method Room Air Orders (Tests/Meds): ORDERS Category Date Time Status Knee XR left 3 views [XR knee LT 3V] Stat Exams 02/10/24 15:12 Completed Wrist XR left minimum 3 views [XR wrist LT min 3V] Stat Exams 02/10/24 15:12 Completed Medical Decision Narrative: 53-year-old with above history and physical. Her exam is very benign but will get plain films of her left wrist and knee to rule out fracture dislocation which I highly doubt at this point. Will reassess after x-rays are performed. X-rays performed which I personally interpreted which shows no fracture or dislocation. Supportive care discussed patient discharged in stable condition. Critical Care Critical Care Time Critical Care Time: No
[2024-02-10 15:31] VITALS: BP 135/80; PULSE 79; O2SAT 98
--- NOTE | 2024-02-10 16:21 | PC.NURSE ---
DR OATES AT BEDSIDE TO UPDATE PT
[2024-02-10 16:25] VITALS: BP 135/87; PULSE 74; RESP 18; TEMP 37.2; O2SAT 99
== END 2024-02-10 16:25 | disposition home or self-care (01) ==
PROVIDERS: Emergency Provider Student in an Organized Health Care Education/Training Program; PCP Nurse Practitioner Family
DX: S63.502A Unspecified sprain of left wrist, initial encounter (principal); S80.02XA Contusion of left knee, initial encounter; M25.532 Pain in left wrist; M25.562 Pain in left knee; W18.30XA Fall on same level, unspecified, initial encounter; Y93.9 Activity, unspecified; Y92.9 Unspecified place or not applicable
CPT/HCPCS: 73110; 73562; 99283

== ENCOUNTER 2024-07-19 13:41 | Outpatient (CLI) | payer MEDICAID, SELFPAY ==
--- NOTE | 2024-07-19 13:44 | MM_ITS ---
PROCEDURE INFORMATION: Exam: MG Bilateral Screening 3D Mammography Exam date and time: 07/19/2024 1:54 PM Age: 54 years old Clinical indication: Screening examination TECHNIQUE: Imaging protocol: Bilateral Screening tomosynthesis and 2D mammography including computer-aided detection (CAD) when performed. COMPARISON: 1. MG MM DIG SCREENING MAMM BI W/CAD 06/20/2023 4:35 PM 2. MG MM DIG SCREENING MAMM BI W/CAD 05/24/2022 3:41 PM FINDINGS: MAMMOGRAPHY: Breast composition: There are scattered areas of fibroglandular density. Mass: No suspicious masses. Architectural distortion: None. Calcifications: No suspicious calcifications. Asymmetric density: None. Skin thickening: None. Axillary adenopathy: None. IMPRESSION: There are no findings suspicious for malignancy. Annual mammographic screening is recommended unless otherwise clinically indicated. ASSESSMENT: BI-RADS Category 1: Negative.
== END 2024-07-19 23:59 | disposition home or self-care (01) ==
LOC: RAD 13:42
PROVIDERS: PCP Nurse Practitioner Family; Visit Provider Nurse Practitioner Family
DX: Z12.31 Encounter for screening mammogram for malignant neoplasm of breast (principal)
CPT/HCPCS: 77063; 77067

== ENCOUNTER 2024-07-22 09:56 | Outpatient (CLI) | payer MEDICAID, SELFPAY ==
--- NOTE | 2024-07-22 09:59 | CA_ITS ---
APPROVED REPORT EXAM: Comprehensive 2D, Doppler, and color-flow Echocardiogram Case Management Coordinator: Kate Correa RT(R) Ht: 5 ft 4 in Wt: 272lbs BSA: 2.23 BP: 134/80 mmHg Indications: SOA, hyperlipidemia, GERD, h/o gastric sleeve, DD, family history of HD. 2D Dimensions LA Volume 27.60 mL LA Volume Index 12.38 mL/m2 (M/F) 16-34 EF AP4 42.90 % GL Strain -19.1 % M-Mode Dimensions RVDd 2.84 cm (0.9-2.6) LA Diam 3.54 cm (1.9-4.0) LVDd 4.78 cm (3.5-5.7) LVDs 3.41 cm (3.5-5.7) IVSd 0.68 cm (0.6-1.1) PWd 0.72 cm (0.6-1.1) EF (Teich) 55.10% FS 28.70% EDV (Teich) 106.50 mL ESV (Teich) 47.80 mL LV Diastology E Decel Time 240 (160-240 msec) E/A Ratio 1.3 Mitral Valve MV E Max Thierry. 82.0 (40-130 cm/s) MV A Velocity 61.0 (40-130 cm/s) E/A Ratio 1.34 MV PHT 70.0 ms Left Ventricle The left ventricle is normal size. The left ventricular systolic function is normal. The left ventricular ejection fraction is within the normal range. There is increased LV wall thickness. There is normal LV segmental wall motion. The left ventricular diastolic function is normal. LVEF is 55%. Right Ventricle The right ventricle is normal size. The right ventricular systolic function is normal. Atria The left atrium size is normal. The right atrium size is normal. There is no Doppler evidence of interatrial shunt. Aortic Valve The aortic valve is mildly thickened. There is no aortic valvular stenosis. Mild aortic regurgitation. Mitral Valve The mitral valve is normal in structure. No evidence of mitral valve stenosis. Mild mitral regurgitation. Tricuspid Valve Tricuspid valve is grossly normal in structure and function. Trace tricuspid regurgitation. There is insufficient TR jet to estimate RVSP. Pulmonic Valve The pulmonary valve is normal in structure. Trace pulmonic regurgitation. Great Vessels The aortic root is normal in size. IVC is normal in size and collapses >50% with inspiration. Pericardium There is no pericardial effusion. Other Information Study Quality: Fair Conclusion Normal biventricular systolic function. Mild MR, mild AI. Electronically signed by : Fallon Hernandez MD 07/23/2024 13:05:43
== END 2024-07-22 23:59 | disposition home or self-care (01) ==
LOC: RT 09:57
PROVIDERS: PCP Nurse Practitioner Family; Visit Provider Nurse Practitioner Family
DX: I34.0 Nonrheumatic mitral (valve) insufficiency (principal); I35.1 Nonrheumatic aortic (valve) insufficiency; R06.02 Shortness of breath
CPT/HCPCS: 93306

== ENCOUNTER 2024-07-27 17:17 | Outpatient (CLI) | payer MEDICAID, SELFPAY ==
--- NOTE | 2024-07-27 17:19 | XR_ITS ---
PROCEDURE INFORMATION: Exam: XR Right Ankle Exam date and time: 07/27/2024 5:32 PM Age: 54 years old Clinical indication: Pain; Ankle; Right; Additional info: R ankle pain TECHNIQUE: Imaging protocol: Radiologic exam of the right ankle. Views: 3 or more views. COMPARISON: MR ANKLE RT WO/W CON 05/24/2021 4:05 PM FINDINGS: Bones/joints: Normal. No acute fracture identified. Soft tissues: Normal. IMPRESSION: No acute findings.
--- NOTE | 2024-07-27 17:19 | XR_ITS ---
PROCEDURE INFORMATION: Exam: XR Right Knee Exam date and time: 07/27/2024 5:34 PM Age: 54 years old Clinical indication: Pain; Knee; Right; Additional info: R knee pain TECHNIQUE: Imaging protocol: Radiologic exam of the right knee. Views: 3 views. COMPARISON: CR XR KNEE RT 3V 02/04/2024 12:33 PM FINDINGS: Bones/joints: Mild degenerative changes of the medial and patellofemoral compartments. No acute fracture identified. Soft tissues: Normal. IMPRESSION: No acute abnormality. Mild DJD.
== END 2024-07-27 23:59 | disposition home or self-care (01) ==
PROVIDERS: PCP Nurse Practitioner Family; Visit Provider Student in an Organized Health Care Education/Training Program
DX: M25.561 Pain in right knee (principal); M25.571 Pain in right ankle and joints of right foot
CPT/HCPCS: 73562; 73610

== ENCOUNTER 2024-10-05 15:16 | Emergency (ER) | payer MEDICAID, SELFPAY ==
[2024-10-05 15:45] VITALS: BP 113/68; PULSE 61; RESP 18; TEMP 36.7; O2SAT 98; BMI 45.4
--- NOTE | 2024-10-05 15:53 | XR_ITS ---
PROCEDURE INFORMATION: Exam: XR Left Wrist Exam date and time: 10/05/2024 3:53 PM Age: 54 years old Clinical indication: Injury or trauma; Fall; Other: Pain; Additional info: Injury from fall TECHNIQUE: Imaging protocol: Radiologic exam of the left wrist. Views: 1 or 2 views. COMPARISON: CR XR WRIST LT MIN 3V 02/10/2024 3:10 PM FINDINGS: Bones/joints: Normal. Soft tissues: Normal. IMPRESSION: No acute findings.
--- NOTE | 2024-10-05 17:47 | HMH.EDGENADL ---
Discharge Plan Disposition Patient Disposition: Home, Self-Care Prescriptions Prescriptions: No Action diclofenac sodium 1 % gel topical sertraline 25 mg tablet PO Patient Comments: TAKE 1 TABLET BY MOUTH ONCE DAILY FOR 7 DAYS THEN TAKE 2 ONCE DAILY fexofenadine 180 mg tablet PO Patient Comments: TAKE 1 TABLET BY MOUTH ONCE DAILY rosuvastatin 10 mg tablet PO Patient Comments: TAKE 1 TABLET BY MOUTH ONCE DAILY AT NIGHT hydroxyzine pamoate 25 mg capsule PO Patient Comments: TAKE 1 CAPSULE BY MOUTH EVERY 8 HOURS NEEDED FOR ITCHY SKIN methylprednisolone 4 mg tablets,dose pack See Rx Instructions PO PER PKG DIR Qty: 21 0RF Rx Instructions: PO PER PKG DIR Referrals Follow up/Referrals: Alberto Lopez MD [Primary Care Provider, Internal Medicine] - See instructions Activity Restrictions/Add. Instructions Additional Instructions/Restrictions: Follow-up with your family doctor as needed for this visit to the emergency department. Take Tylenol 1000 mg every 6 hours (4 times daily) and ibuprofen 400 mg every 6 hours (4 times daily) as needed with food and water to prevent GI upset and kidney damage. Clinical Impressions Clinical Impression: Acute pain of left wrist Print Language Print Language: Cambodian Discharge ED Provider: Jaycob Jarrett General Adult HPI General Chief complaint: Extremity Injury, Upper Stated complaint: left hand and arm pain Time Seen by Provider: 10/05/24 17:47 Mode of Arrival: Ambulatory Description of Symptoms (Recalled from ER Triage Doc. by RN): c/o left wrist pain after falling a few weeks ago when she tripped over a toy, she lifted something yesterday and the pain increased. History of Present Illness HPI narrative: Please note that above description of symptoms, in this electronic medical record under categorization of recalled from ER triage doctor by RN are reflective of an initial nursing assessment, however, is not reflective of my full history and physical exam that was personally taken and clarified. Consequentially, this preceding description of symptoms, which may include the patient's categorized chief complaint in the EMR, do not reflect my personal clinical impression, and the ultimate description of history of present illness and patient stated complaints should be deferred to this section of the note. Unless stated otherwise or congruent with this section of the note, additional signs, symptoms, or incongruence should be interpreted as inaccurate with my clinical impression. Related Data Home Medications ?Medication ?Instructions ?Recorded ?Confirmed diclofenac sodium 1 % topical gel topical 07/27/24 07/30/24 fexofenadine 180 mg tablet mg PO 07/27/24 07/30/24 hydroxyzine pamoate 25 mg capsule mg PO 07/27/24 07/30/24 rosuvastatin 10 mg tablet mg PO 07/27/24 07/30/24 sertraline 25 mg tablet mg PO 07/27/24 07/30/24 Previous Rx's ?Medication ?Instructions ?Recorded methylprednisolone 4 mg tablets in See Rx Instructions PO PER PKG DIR 07/27/24 a dose pack #21 tabs Allergies Allergy/AdvReac Type Severity Reaction Status Date / Time adhesive tape Allergy Redness of Verified 07/30/24 10:55 Skin [facility] Disclaimer: The information contained in this section may have been updated after the patient was seen, as this information can be updated by other users. 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 Kidney stone Urinary tract infection History of COVID-19 Migraine Sinus headache Allergies Hyperlipidemia Diastolic dysfunction Family history of heart disease Abnormal EKG Hiatal hernia Gastroesophageal reflux disease Dyspnea Surgical History History of endometrial ablation H/O gastric sleeve History of placement of ear tubes BIJAN Hx of cholecystectomy History of reversal of tubal ligation Hx of tubal ligation X2 Family History Father CHF (congestive heart failure) Heart attack Diabetes Hyperlipidemia Mother Diabetes Hyperlipidemia Social History Smoking Status: Never smoker alcohol intake: never substance use type: denies use current occupational status: unemployed Travel in the last 8 weeks?: None household members: spouse and family housing: house caffeine: No Have you lived/traveled outside US in past 30 days?: No Contact w/someone who lives/traveled outside US past 30 days?: No Exposure to someone with infectious disease in past 14 days?: No Do you have a fever (greater than 100.4 F or 38 C)?: No Have you tested positive for COVID-19?: No Exposed to someone with COVID-19 in past 14 days?: No Do you have a sore throat?: No Do you have a cough?: No Do you have any weakness?: No Do you have any diarrhea?: No Are you experiencing any unusual bleeding?: No Do you have any muscle aches/pain?: No Do you have any abdominal pain?: No Are you experiencing loss of taste or smell?: No Other Medical History Have you received the Flu Vaccine for this season: No Have you received the Pneumonia Vaccine: No ROS Obtained: Yes All systems reviewed & no additional complaints except as documented Physical Exam General General appearance: alert Head Head exam: atraumatic and normocephalic Eye Eye exam: Present normal appearance, PERRL and EOMI Neck Neck exam: Present normal inspection, full ROM and trachea midline Respiratory Respiratory exam: Absent respiratory distress, wheezes, stridor, accessory muscle use or prolonged expiratory phase Cardiovascular Cardiovascular exam: Present other (Pulses equal symmetric in upper and lower extremities) Abdominal Exam Abdominal exam: Present soft; Absent distention, tenderness or pulsatile mass Extremities Exam Extremities exam: Absent edema Neurological Exam Neurological exam: Present alert, oriented X3 and CN II-XII intact; Absent motor sensory deficit Skin Skin exam: Present warm and dry; Absent diaphoresis or erythema Medical Decision Making Medical Records Medical records reviewed: Yes I reviewed the patient's medical records. Screening: Per USPSTF and CDC recommendations, given the prevalence of disease in our region, it is our hospital?s policy to screen for HIV and viral Hepatitis for all patients aged 18 and over and those with ongoing risk factors. Emanuel Inquiry Pt receiving controlled substance: No Emanuel was queried for this patient: No Vital Signs: 10/05/24 15:45 Temperature 98.1 F Temperature Source Oral Pulse Rate [Left Radial] 61 Respiratory Rate 18 Blood Pressure [Right Arm] 113/68 Blood Pressure Mean [Right Arm] 83 02 Sat by Pulse Oximetry 98 Oxygen Delivery Method Room Air Orders (Tests/Meds): ORDERS Category Date Time Status Wrist XR left 2 views [XR wrist LT 2V] Stat Exams 10/05/24 15:53 Completed Medical Decision Narrative: 54-year-old female presenting with wrist injury. Happened a few weeks ago. At the base of her wrist and her ulnocarpal joint. No injury. She states that she was lifting up a pack of water and felt a popping sensation. This has not gotten any better, so came in for further evaluation. History obtained with patient. On arrival, very clinically well. Outwardly normal. X-rays obtained. On independent interpretation, some edema, but no bony abnormality. Due to feeling of instability, splint was placed. Patient requires orthopedic bracing due to weakness or deformity requiring stabilization. The use of this brace will benefit the patient's functionality and prevent further injury. Because patient at baseline without signs or symptoms of clinical decompensation, deemed appropriate for discharge. Results were relayed to patient who voiced understanding and were agreeable to outpatient management and follow up. I discussed my clinical impression with patient and answered all questions. At this time, the evidence for any other entities in the differential is insufficient to warrant any further testing or ED observation. This was explained as well. Advisory was given that persistent or worsening symptoms require further evaluation. I confirmed the understanding of this discussion. Wax Bleacher disclaimer Much of this encounter note is an electronic java development team lead spoken language to printed text. Electronic java development team lead of the spoken language may permit errors. Although I have reviewed the note, some errors may still exist. Critical Care Critical Care Time Critical Care Time: No
[2024-10-05 18:41] VITALS: BP 141/78; PULSE 80; RESP 16; TEMP 37; O2SAT 97
== END 2024-10-05 18:42 | disposition home or self-care (01) ==
PROVIDERS: Emergency Provider Emergency Medicine; PCP Internal Medicine Adolescent Medicine
DX: M25.532 Pain in left wrist (principal); W01.10XA Fall on same level from slipping, tripping and stumbling with subsequent striking against unspecified object, initial encounter
CPT/HCPCS: 73100; 99283

== ENCOUNTER 2025-04-05 04:39 | Emergency (ER) | payer MEDICAID, SELFPAY ==
[2025-04-05] VITALS (7 sets, daily range): BP systolic 111–128; BP diastolic 59–76; PULSE 67–80; RESP 16–18; TEMP 36.8–37; O2SAT 95–197; BMI 43.9
--- NOTE | 2025-04-05 04:41 | CT_ITS ---
PROCEDURE INFORMATION: Exam: CT Head Without Contrast Exam date and time: 04/05/2025 5:34 AM Age: 54 years old Clinical indication: Injury or trauma; Fall; Blunt trauma (contusions or hematomas); Additional info: Fall struck back of head TECHNIQUE: Imaging protocol: Computed tomography of the head without contrast. Radiation optimization: All CT scans at this facility use at least one of these dose optimization techniques: automated exposure control; mA and/or kV adjustment per patient size (includes targeted exams where dose is matched to clinical indication); or iterative reconstruction. COMPARISON: No relevant prior studies available. FINDINGS: Brain: There is no evidence of acute parenchymal hemorrhage, extra-axial collection, or acute infarction. There is no mass effect, midline shift, or downward herniation. Cerebral ventricles: No ventriculomegaly. Paranasal sinuses: There is mild paranasal sinus mucosal thickening. Mastoid air cells: Visualized mastoid air cells are well aerated. Bones: Unremarkable. No acute fracture. Soft tissues: Unremarkable. IMPRESSION: No acute intracranial abnormality.
--- NOTE | 2025-04-05 04:41 | ECG_ITS ---
APPROVED REPORT Exam: Resting ECG HR:69 bpm ECG Measurements Heart Rate 69 AXES TN 169 P 13 QRSd 85 QRS 36 QT 398 T 8 QTc 418 Conclusion SINUS RHYTHM NORMAL ECG Electronically signed by : GRAY GARRETT, 04/05/2025 09:30:09
--- NOTE | 2025-04-05 04:41 | XR_ITS ---
PROCEDURE INFORMATION: Exam: XR Chest Exam date and time: 04/05/2025 5:48 AM Age: 54 years old Clinical indication: Injury or trauma; Fall; Blunt trauma (contusions or hematomas); Additional info: Near syncope, fall TECHNIQUE: Imaging protocol: Radiologic exam of the chest. Views: 1 view. COMPARISON: CR XR CHEST 2V 11/20/2022 6:13 AM FINDINGS: Lungs: Unremarkable. No consolidation. Pleural spaces: Unremarkable. No pleural effusion. No pneumothorax. Heart/Mediastinum: Unremarkable. No cardiomegaly. Bones/joints: Unremarkable. IMPRESSION: No acute findings.
--- OUTSIDE RECORDS SUMMARY | 2025-04-05 04:42 | XMS_ITS | Clinical Summary ---
Author Organization [facility] Address [address] [place] [address] Care Team Providers Care Resource Conservation Manager Name Role Phone Juan Turner MD Primary Care Provider + [phone] Allergies No known active allergies Medications * This document contains information received from the source organization and may not represent a complete record from that organization. rizatriptan (MAXALT) 10 MG tablet Take 10 mg by mouth 1 (One) Time As Needed for Migraine. May repeat in 2 hours if needed Active multivitamin with minerals tablet tablet 1 tablet Daily. Patch 0 Active nystatin (MYCOSTATIN) 991295 UNIT/GM cream Apply 1 application topically to the appropriate area as directed 2 (Two) Times a Day. 30 g 2 1 Active phentermine 37.5 MG capsule Take 37.5 mg by mouth Daily. 2 Active topiramate (TOPAMAX) 25 MG tablet Take 2 tablets by mouth every night at bedtime for 90 days. 60 tablet 2 2 Active Active Problems Problem Noted Date Diagnosed Date Obesity (BMI 30-39.9) 06/14/2021 Overview (11/04/2021): Start weight (06/2021):232.5 1st goal (10% loss):209.5 2nd goal: 195; 3rd goal: 180 (healthy fat range), Final goal 160 (pre-childbirth weight) POST SLEEVE (02/2020) Pre-283; lowest post- [address] [facility]:(medicaid) () 15 mg PHENTERMINE (one time prescribe by outside office, advised she is unable to get this outside our office (06/2021) topiramate Rx options: all, uterus oblation Rx Caution: Denies multiple endocrine neoplasia, past pancreatitis, personal or family history of thyroid cancer. Denies cardiac symptoms. Per pt normal stress test (records requested from [facility]) Comorbid conditions: GERD (medication), HTN (prior to sleeve, no med), Hyperlipidemia (no med) POST SLEEVE (02/2020) Pre-283; lowest post- 213 Macro goal: Carb 30%, protein 35% Assessment & Plan (10/27/2021 4:29 PM EDT): Patient's (Body mass index is 37.93 kg/m .) indicates that they are obese (BMI >30) with health conditions that include hypertension, dyslipidemias and GERD . Weight is improving with treatment. BMI is is above average; BMI management plan is completed. We discussed low calorie, low carb based diet program, portion control, increasing exercise and an genaro-based approach such as Viralize Pal or Lose It. Restart phentermine and tompomax. Advised phentermine would be sent in once we get the blood pressure reading and waist measurement. Topomax sent in. Assessment & Plan (06/28/2021 9:44 AM EDT): Patient's (Body mass index is 39.48 kg/m .) indicates that they are morbidly obese (BMI > 40 or > 35 with obesity - related health condition) with health conditions that include hypertension and dyslipidemias . Weight is improving with lifestyle modifications. BMI is is above average; BMI management plan is completed. We discussed low calorie, low carb based diet program, portion control and increasing exercise. --This is a initial follow-up visit and patient is down 2.5 pounds over the last 2 weeks. --She was asked to start food journaling which she has and did bring in her food journal for brief review. She said an excellent job tracking all days only occasionally missing a meal or 2. Keep up this great effort. Asked her again to make her #1 priority over the next month to continue the food journaling and to bring into journal to next office visit for brief review. --She did get her labs drawn at external lab that did not interface with her system. Did briefly look on her phone at these lab results and only noticed mildly elevated lipid levels. Asked her to print off copies of these so we can import them into her chart. --She did not get a chance to call for medication eligibility --Discussed Qsymia as a medication option but it is cost prohibitive. Start phentermine 15 mg and topiramate 50 mg at night as directed. Assessment & Plan (06/14/2021 3:37 PM EST): Patient's (Body mass index is 39.91 kg/m .) indicates that they are morbidly obese (BMI > 40 or > 35 with obesity - related health condition) with health conditions that include hypertension, dyslipidemias, GERD and osteoarthritis . Weight is newly identified. BMI is is above average; BMI management plan is completed. We discussed low calorie, low carb based diet program, portion control and increasing exercise. --This is initial visit for a postsurgical patient. She had gastric sleeve surgery in 02/[address] Durant. --My fitness pal was set up with calorie goal set to 1250 based on body composition analysis. Patient asked to start journaling in my fitness pal all things that have calories that she is in taking. Advised that were not looking for perfection on calories or macro goals but instead just looking to see where her calories and her food is made above. Bring her food journal into next office visit for brief review. --Fasting labs were ordered in office today. She plans to stop by later on this week to the office and get these completed last when she is fasting. Looking in particular for any kind of insulin resistance that she does have a past medical history of gestational diabetes as well as family history. -- Has a hitory of mitral valve disorder but feels she was told this is no longer active. Records from [facility] Hiatal hernia Mitral valve prolapse Lower extremity edema Varicose veins of both lower extremities HLD (hyperlipidemia) Suspected sleep apnea Nausea Overview (11/05/2019): in mornings, improved with taking PPI Back pain Overview (11/05/2019): no meds or treatment Migraines Depression Candidiasis of skin Overview (11/05/2019): under pannus and breast, uses nystatin Wears glasses GERD (gastroesophageal reflux disease) Overview (09/04/2020): omeprazole controls symptoms, EGD Dr. Durant 11/25/2019 irregular Z-line at 39 cm distal esophageal biopsies compatible with reflux Resolved Problems Problem Noted Date Diagnosed Date Resolved Date Hiatal hernia with gastroesophageal reflux 02/27/2020 03/04/2020 Overview (02/27/2020): Added automatically from request for surgery [id number] Family History Medical History Relation Name Comments Diabetes Father Heart attack Father Hypertension Father Obesity Father Sleep apnea Father Heart attack Maternal Grandmother Diabetes Mother Hypertension Mother Obesity Mother Heart attack Paternal Grandfather Cancer Paternal Grandmother Obesity Sister 2 Relation Name Status Comments Brother Alive Father Alive Maternal Grandfather Maternal Grandmother Mother Alive Paternal Grandfather Paternal Grandmother Sister 1 Alive Sister 2 Alive Social History Tobacco Use Types Packs/Day Years Used Date Smoking Tobacco: Never Smokeless Tobacco: Never Alcohol Use Standard Drinks/Week Comments Not Currently 0 (1 standard drink = 0.6 oz pur e alcohol) Abuse Screen Answer Date Recorded Unsafe at Home or Work/School Not on file Feels Threatened by Someone? Not on file 12/2022 Does Anyone Keep You from Co ntacting Others or Doint Things Outside the Home? Not on file 01/16/2023 Physical Sign of Abuse Present Not on file 1 Housing Stability Answer Date Recorded Current Living Arrangements Not on file 12/2022 Potentially Unsafe Housing Conditions Not on ralph e 01/16/2023 Family and Community Support Answer Ta e Recorded Help with Day-to-Day Activities Not on file 01/16/2023 Lonely or Isolated Not on file 01/16/2023 Employment Answer Date Recorded Do you want help finding or keeping work or a allie b? Not on file 01/16/2023 Disabilities Answer Date Recorded Concentrating, Remembering, or Making Decisions Difficulty Not on file 01/16/2023 Doing Errands Independently Difficulty Not on fi le 01/16/2023 Education Answer Date Recorded Help with school or training? Not on file Preferred Language Not on file 01/16/2023 Comments No Sex and Gender Information Value Date Recorded Sex Assigned at Not on file Legal Sex Female 12:03 PM EDT Gender Identity Not on file Sexual Orientation Not on file Last Filed Vital Signs Vital Sign Reading Time Taken Comments Blood Pressure 120/76 10/27/2021 9:16 AM EDT Pulse 66 10/27/2021 9:16 AM EDT Temperature 36.4 C (97.5 F) 06/28/2021 9:11 AM EDT Respiratory Rate 18 06/28/2021 9:11 AM EDT Oxygen Saturation 98% 06/28/2021 9:11 AM EDT Inhaled Oxygen Concentration - - Weight 100 kg (221 lb) 10/27/2021 9:38 AM EDT Height 162.6 cm (5' 4 ) 10/27/2021 9:38 AM EDT Body Mass Index 37.93 10/27/2021 9:38 AM EDT Plan of Treatment Health Maintenance Due Date Last Done Comments Annual Gynecologic Pelvic an d Breast Exam 1972 TDAP/TD VACCINES (1 - Tdap) 04/28/2006 04/27/2006, 0 06/11/1996 MAMMOGRAM 2012 COLOGUARD 2017 COLON CANCER SCREENING 5 YEA R SIGMOIDOSCOPY 2017 COLONOSCOPY 2017 [address]AL CANCER SCREENING 2017 CT COLONOGRAPHY 2017 FECAL OCCULT BLOOD TEST 2017 FIT Testing (1 year) 2017 ANNUAL PHYSICAL 10/07/2019 HEPATITIS C SCREENING 10/07/2019 LIPID PANEL 11/04/2020 11/05/2019 Pneumococcal Vaccine 50+ (1 of 1 - PCV) 2022 ZOSTER VACCINE (1 of 2) 2022 INFLUENZA VACCINE 11/08/2024 12/27/2019, , 01/20/2019 Medical Devices Implanted Type Area Detail Drafter Device Identifier Shelf Expiration Date Model / Serial / Lot Reload Stplr Signia Tristaple 2.0 Pga 60mm Art Xthick Blk - [id number] Implanted:Qty: 1 on 03/04/2020 by Dangelo Durant MD at [facility] Implant N/A: Abdomen COVIDIEN 01/07/2021 [id number] XT / / [id number] Reload Stplr Signia Tristaple 2.0 Pga 60mm Art /Olya Prp - [id number] Implanted:Qty: 2 on 03/04/2020 by Dangelo Durant MD at [facility] Implant N/A: Abdomen COVIDIEN 06/07/2021 [id number] MT / / [id number] Reload Stplr Signia Tristaple 2.0 Pga 60mm Art /Olya Prp - [id number] Implanted:Qty: 1 on 03/04/2020 by Dangelo Durant MD at [facility] Implant N/A: Stomach COVIDIEN 06/07/2021 [id number] MT / / [id number] Procedures Procedure Name Priority Date/Time Associated Diagnosis Comments LIPID PANEL Routine 11/05/2019 10:50 AM EDT Mitral valve prolapse Varicose veins of both lower extremities, unspecified whether complicated Hyperlipidemia, unspecified hyperlipidemia type Migraine without status migrainosus, not intractable, unspecified migraine type Sleep apnea, unspecified type Gastroesophageal reflux disease, esophagitis presence not specified Nausea Back pain, unspecified back location, unspecified back pain laterality, unspecified chronicity Candidiasis of skin Hiatal hernia Lower extremity edema Depression, unspecified depression type from Last 3 Months or Most Recently Relevant to Health Maintenance Results * (ABNORMAL) Lipid Panel (11/05/2019 10:50 AM EDT) Total Cholesterol 231(H) 100 - 199 mg/dL [facility] Triglycerides 92 0 - 149 mg/dL [facility] HDL Cholesterol 55 >39 mg/dL [facility] VLDL Cholesterol 18 5 - 40 mg/dL [facility] LDL Cholesterol 158(H) 0 - 99 mg/dL [facility] Blood 11/05/2019 10:5 0 AM EDT 11/06/2019 Comment:BLOOD Narrative [facility] ([facility]) - 11/06/2019 6:10 AM EDT Performed at: 01 - [facility] [address], [place], [place] [id number] Environmental Health And Safety Manager: London Upton PhD, Phone: [phone] Patient Fasting: N Nevin Simpson PA-C LAB BLOOD ORDERABLES Final Result [facility] (AMBULATORY) [address] [place] [address], [facility] [address] [place] [address], from Last 3 Months or Most Recently Relevant to Health Maintenance Insurance [facility] [facility] Advance Directives * CPR (Attempt to Resuscitate) (Latest Code Status on File) Date Activated Date Inactivated Comments 03/04/2020 9:08 AM 03/06/2020 4:41 PM Question Answer Comments Code Status (Patient has no pulse and is not breathing): CPR (Attempt to Resuscitate) Medical Interventions (Patie nt has pulse or is breathing): Full Care Teams Resource Conservation Manager Relationship Specialty Start Date End Date Juan Turner MD [address] [facility] [address] [place] [id number] PCP - General Family Medicine 09/12/19
--- NOTE | 2025-04-05 04:49 | HMH.EDGENADL ---
Discharge Plan Disposition Patient Disposition: Home, Self-Care Condition: Good Prescriptions Prescriptions: New ondansetron 4 mg tablet,disintegrating 4 mg PO Q6H PRN (Reason: nausea and vomiting) Qty: 10 0RF No Action diclofenac sodium 1 % gel topical sertraline 25 mg tablet PO Patient Comments: TAKE 1 TABLET BY MOUTH ONCE DAILY FOR 7 DAYS THEN TAKE 2 ONCE DAILY fexofenadine 180 mg tablet PO Patient Comments: TAKE 1 TABLET BY MOUTH ONCE DAILY rosuvastatin 10 mg tablet PO Patient Comments: TAKE 1 TABLET BY MOUTH ONCE DAILY AT NIGHT hydroxyzine pamoate 25 mg capsule PO Patient Comments: TAKE 1 CAPSULE BY MOUTH EVERY 8 HOURS NEEDED FOR ITCHY SKIN methylprednisolone 4 mg tablets,dose pack See Rx Instructions PO PER PKG DIR Qty: 21 0RF Rx Instructions: PO PER PKG DIR Referrals Follow up/Referrals: Alberto Lopez MD [Primary Care Provider, Internal Medicine] - See instructions Activity Restrictions/Add. Instructions Additional Instructions/Restrictions: You were evaluated in the ER and are believed to be appropriate for discharge at this time. Take Tylenol or ibuprofen at home if needed for pain or fevers, do not exceed the recommended dose on the bottle. Drink water and eat a small snack each time you take these medications to avoid side effects. Take the prescribed Zofran (ondansetron) if needed for nausea and vomiting. Eat a bland diet to start to gently ease yourself back into a normal diet. Make an appoint with your primary care doctor for reevaluation in 2 to 3 days. Return to the ER with any new, worsening, or otherwise concerning symptoms. Clinical Impressions Clinical Impression: Nausea & vomiting, Fall Instructions Patient Instructions: DI for Syncope in Adults (Fainting), [place] Diet Print Language Print Language: Spanish Discharge ED Provider: Jefferson Ayoub Adult [facility] General Chief complaint: Syncope Stated complaint: Fall/Nausea/Vomiting Time Seen by Provider: 04/05/25 04:40 Mode of Arrival: EMS Source of Information: Patient and EMS Description of Symptoms (Recalled from ER Triage Doc. by RN): PT brought to the ED via [facility] for evaluation of a syncope episode. PT stated she has had n/v/d x1 yesterday. PT stated she got up to go to the restroom and felt faint and fell top the ground, stated she thinks she hit her head due to it being sore. Denies blood thinners. History of Present Illness HPI narrative: 54-year-old female with a history of high cholesterol, hypertension, anxiety, depression, hiatal hernia, GERD presents to the ER with nausea, vomiting, cough, congestion, fever, body aches. She also had a presyncopal episode tonight. She states symptoms started 24 hours ago, she has not taken anything for her fever though she reports it being 102 at home. She states she did not take anything else for her other symptoms either. She states she was getting sick in the bathroom and started dry heaving when she started to feel lightheaded. She went to get the person she lives with but states she felt so lightheaded that she fell backwards striking her head. She states she did not fully lose consciousness. She does not use blood thinners. She states she has a mild sore spot in the back of her scalp but there is no palpable knot. She states she has mid abdominal discomfort, she states she has not had dysuria or hematuria. She does report having the sensation of needing to have diarrhea but has not had diarrhea. She denies any other associated symptoms. No other complaints or concerns. EMS reports they administered fluids during transportation and that her blood glucose was in the low 100s with normal vitals. Related Data Home Medications ?Medication ?Instructions ?Recorded ?Confirmed diclofenac sodium 1 % topical gel topical 07/27/24 07/30/24 fexofenadine 180 mg tablet mg PO 07/27/24 07/30/24 hydroxyzine pamoate 25 mg capsule mg PO 07/27/24 07/30/24 rosuvastatin 10 mg tablet mg PO 07/27/24 07/30/24 sertraline 25 mg tablet mg PO 07/27/24 07/30/24 Previous Rx's ?Medication ?Instructions ?Recorded methylprednisolone 4 mg tablets in See Rx Instructions PO PER PKG DIR 07/27/24 a dose pack #21 tabs ondansetron 4 mg disintegrating 4 mg PO Q6H PRN nausea and 04/05/25 tablet vomiting #10 tabs Allergies Allergy/AdvReac Type Severity Reaction Status Date / Time adhesive tape Allergy Redness of Verified 07/30/24 10:55 Skin PFSH [facility] Disclaimer: The information contained in this section may have been updated after the patient was seen, as this information can be updated by other users. 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 Kidney stone Urinary tract infection History of COVID-19 Migraine Sinus headache Allergies Hyperlipidemia Diastolic dysfunction Family history of heart disease Abnormal EKG Hiatal hernia Gastroesophageal reflux disease Dyspnea Surgical History History of endometrial ablation H/O gastric sleeve History of placement of ear tubes BIJAN Hx of cholecystectomy History of reversal of tubal ligation Hx of tubal ligation X2 Family History Father CHF (congestive heart failure) Heart attack Diabetes Hyperlipidemia Mother Diabetes Hyperlipidemia Social History Smoking Status: Never smoker alcohol intake: never substance use type: denies use current occupational status: unemployed Travel in the last 8 weeks?: None household members: spouse and family housing: house caffeine: No Other Medical History Have you received the Flu Vaccine for this season: No Have you received the Pneumonia Vaccine: No ROS Obtained: Yes Systems reviewed as appropriate & no additional complaints except as documented Per HPI Physical Exam General General appearance: alert and in no apparent distress Head Head exam: normocephalic and other (Mild tender spot on the right posterior scalp but there is no associated hematoma, abrasion, laceration, no underlying deformity or crepitus) Eye Eye exam: Present PERRL and EOMI; Absent conjunctival redness or jaundice ENT ENT exam: Present normal oropharynx and mucous membranes moist Neck Neck exam: Present normal inspection and full ROM; Absent tenderness Chest Chest inspection: Present symmetric chest wall rise; Absent tenderness Respiratory Respiratory exam: Present normal lung sounds bilaterally; Absent respiratory distress, wheezes or stridor Cardiovascular Cardiovascular exam: Present regular rate and normal rhythm Abdominal Exam Abdominal exam: Present soft and tenderness (Mild mid and epigastric abdomen); Absent distention, guarding or rebound Extremities Exam Extremities exam: Present full ROM and normal capillary refill; Absent edema Neurological Exam Neurological exam: Present alert and oriented X3; Absent motor sensory deficit Psychiatric Psychiatric exam: Present normal affect and normal mood Skin Skin exam: Present warm and dry Medical Decision Making Medical Records Medical records reviewed: Yes I reviewed the patient's medical records. Screening: Per USPSTF and CDC recommendations, given the prevalence of disease in our region, it is our hospital?s policy to screen for HIV and viral Hepatitis for all patients aged 18 and over and those with ongoing risk factors. Emanuel Inquiry Pt receiving controlled substance: No Vital Signs: 04/05/25 04:39 04/05/25 04:44 04/05/25 05:00 Temperature 98.2 F 98.2 F Temperature Source Oral Pulse Rate 80 70 Pulse Rate [Right] 80 Respiratory Rate 16 18 Blood Pressure 126/75 124/76 Blood Pressure [Right Arm] 126/75 Blood Pressure Mean [Right Arm] 92 02 Sat by Pulse Oximetry 97 97 98 Oxygen Delivery Method Room Air Room Air Room Air 04/05/25 05:30 Temperature Temperature Source Pulse Rate 67 Pulse Rate [Right] Respiratory Rate Blood Pressure 111/59 L Blood Pressure [Right Arm] Blood Pressure Mean [Right Arm] 02 Sat by Pulse Oximetry 98 Oxygen Delivery Method Room Air Lab Data Lab Results 04/05/25 04:44: Sodium 132 L, Potassium 4.0, Chloride 99, Carbon Dioxide 25, Anion Gap 12.0, BUN 14, Creatinine 0.90, Estimated Creat Clear 63, Estimated GFR 66, Est GFR ( Amer) 80, Glucose 138 H, Lactate 0.9, Calcium 8.9, Total Bilirubin 0.8, AST 41 H, ALT 47, Alkaline Phosphatase 96, Troponin I < 0.01, Total Protein 7.5, Albumin 4.3, Globulin 3.2, Albumin/Globulin Ratio 1.3, Lipase 77, SARS-CoV-2 (PCR) Not detected, Influenza Type A (PCR) Detected A, Influenza Type B (PCR) Not detected, RSV (PCR) Not detected, Rhinovirus (PCR) Not detected 04/05/25 04:54: WBC 6.2, RBC 4.88, Hgb 12.3, Hct 40.1, MCV 82.2, MCH 25.2 L, MCHC 30.7 L, RDW 14.4, Plt Count 226, MPV 9.4, Neut % (Auto) 73.9, Lymph % (Auto) 16.1, Campbell % (Auto) 8.1, Eos % (Auto) 0.8, Baso % (Auto) 0.8, Neut # (Auto) 4.6, Lymph # (Auto) 1.0, Campbell # (Auto) 0.5, Eos # (Auto) 0.1, Baso # (Auto) 0.1 04/05/25 05:36: Urine Color Yellow, Urine Appearance Clear, Urine pH 7.5, Ur Specific Beaver 1.020, Urine Protein 1+ A, Urine Glucose (UA) Negative, Urine Ketones Negative, Urine Blood Negative, Urine Nitrate Negative, Urine Bilirubin Negative, Urine Urobilinogen 1.0, Ur Leukocyte Esterase Negative, Urine RBC None, Urine WBC Occasional, Ur Squamous Epith Cells 3-5, Urine Bacteria Trace 04/05/25 04:54 04/05/25 04:44 Orders (Tests/Meds): ED MEDICATIONS Discontinued Medications Generic Name Dose Route Start Last Admin Trade Name Freq PRN Reason Stop Dose Admin Lactated Ringer's 1,000 mls @ 999 mls/hr 04/05/25 04:41 04/05/25 04:53 Lactated Ringer's 1000 Ml Bag IV 04/05/25 05:41 999 mls/hr .Q1H1M ONE Administration Ketorolac Tromethamine 30 mg 04/05/25 04:54 04/05/25 04:56 Ketorolac 30mg/Ml Vial IV 04/05/25 04:55 30 mg ONCE ONE Administration Ondansetron HCl 4 mg 04/05/25 04:41 04/05/25 04:53 Ondansetron 4mg/2ml Vial IV 04/05/25 04:42 4 mg ONCE ONE Administration ORDERS Category Date Time Status CT head/brain wo con Stat Cat Scan 04/05/25 04:41 Completed CXR --portable [XR chest portable] Stat Exams 04/05/25 04:41 Completed CBC w/Auto Diff [Complete Blood Count Auto Diff] Stat Lab 04/05/25 04:54 Completed CMP [Comprehensive Metabolic Panel] Stat Lab 04/05/25 04:44 Completed HIV Combo Stat Lab 04/05/25 04:44 Received Hepatitis C Ab Qual. W/ RFX Stat Lab 04/05/25 04:44 Received Lactic Acid Stat Lab 04/05/25 04:44 Completed Lipase Stat Lab 04/05/25 04:44 Completed Mini Respiratory Panel Stat Lab 04/05/25 04:44 Completed Trop I [Troponin I] Stat Lab 04/05/25 04:44 Completed Troponin I Q3H Lab 04/05/25 07:45 Ordered Troponin I Q3H Lab 04/05/25 10:45 Ordered Urinalysis and Microscopic Stat Lab 04/05/25 05:36 Completed ECG Request Stat Y 04/05/25 04:41 Ordered Medical Decision Narrative: In summary, this 54-year-old female with comorbidities described in the HPI presents to the emergency department today with fever, chills, nausea, vomiting, body aches, cough, congestion, presyncope. On initial evaluation patient is hemodynamically stable, afebrile, GCS 15, no neurologic deficits, mild tenderness of the right posterior scalp but no other associated acute traumatic injury identified, mild mid abdominal tenderness with no rebound or guarding, remainder of exam benign. Regarding the presyncopal episode I have highest suspicion for vasovagal episode since patient was actively dry heaving when her symptoms happened, she also had no associated chest pain, headache, difficulty breathing, or other associated symptoms. She did not fully syncopized. With her fall I considered the possibility of intracranial bleed or skull fracture though I have fairly low suspicion for this, by Nexus criteria CT C-spine is not indicated and I do not have suspicion for C-spine injury. Regarding her nausea and vomiting and other flulike symptoms I also considered electrolyte abnormality, dehydration, pancreatitis, COVID, influenza, other viral syndrome, among others. Based on these concerns, I ordered hematologic and serum labs, cardiac workup, CT head. ECG personally interpreted demonstrates sinus rhythm, rate 69, normal axis, normal NH and QTc, no STEMI. Patient received IV fluids, Zofran, Toradol for treatment. Labs personally reviewed demonstrate mild hyponatremia on CMP but not acutely actionable at this time, no kidney dysfunction, normal lipase and lactic, CBC with no leukocytosis, no anemia, normal platelets, troponin undetectably low less than 0.01 which is very reassuring in the absence of any chest pain and the reassurance of a nonischemic ECG. UA negative for findings of infection. XR personally interpreted demonstrates no acute thoracic abnormality, specifically no traumatic injury appreciated, see radiology read for final interpretation. CT imaging personally interpreted demonstrate no acute intracranial bleed, mass, midline shift, or skull fracture. See radiology read for final interpretation. On reassessment patient has had improvement of symptoms. She is tolerating oral intake. She has no residual lightheadedness or presyncopal symptoms. I believe she is appropriate for discharge at this time. I provided prescription for Zofran for outpatient management of symptoms. She was given instructions on continued symptomatic monitoring and management, follow-up, and return precautions for the ER. She indicated understanding and the patient was discharged in stable condition Critical Care Critical Care Time Critical Care Time: No
[2025-04-05 04:53] LABS: Influenza B, PCR Not Detected (NotDetected)
[2025-04-05] MEDS: ONDANSETRON 4MG/2ML VIAL 4 MG IV (04:53)
[2025-04-05] MEDS: LACTATED RINGERS 1000ML 1,000 ML 999 ML IV (04:53)
[2025-04-05 04:54] LABS: Coronavirus 19, PCR Not Detected (NotDetected)
[2025-04-05] MEDS: KETOROLAC 30MG/ML VIAL 30 MG IV (04:56)
[2025-04-05 05:10] LABS: Alanine Aminotransferase 47 U/L (12-78); Albumin Level 4.3 g/dl (3.5-5.0); Albumin/Globulin Ratio 1.3 (1.1-1.8); Alkaline Phosphatase 96 U/L (38-126); Anion Gap 12.0 mEq/L (5-15); Aspartate Amino Transferase 41 U/L (14-36); Bilirubin,Total 0.8 mg/dl (0.2-1.3); Blood Urea Nitrogen 14 mg/dl (7-17); Calcium 8.9 mg/dl (8.4-10.2); Carbon Dioxide 25 mmol/L (22.0-30.0); Chloride 99 mmol/L (98-107); Creatinine Clearance Estimated 63 mL/min (50-200); Creatinine,Serum 0.90 mg/dl (0.52-1.04); Estimated Glomerular Filt Rate 66 ml/min (>60); GFR (African American) 80 ML/MIN (>60); Globulin 3.2 g/dL (1.3-3.2); Glucose 138 mg/dl (74-100); Lipase 77 U/L (23-300); Potassium 4.0 mmoL/L (3.5-5.1); Sodium 132 mmol/L (136-145); Total Protein,Serum 7.5 g/dl (6.3-8.2)
[2025-04-05 05:29] LABS: Troponin I < 0.01 ng/ml (0.00-0.034)
[2025-04-05 05:30] LABS: Hematocrit 40.1 % (37.0-47.0); Hemoglobin 12.3 g/dL (12.2-16.2); Immature Granulocytes % 0.3 %; Mean Corpuscular HGB Conc 30.7 g/dL (31.8-35.4); Mean Corpuscular Hemoglobin 25.2 pg (27.0-31.2); Mean Corpuscular Volume 82.2 fl (81-99); Nucleated Red Blood Cells % 0 %; Platelet Count 226 K/mm3 (142-424); Red Blood Count 4.88 M/mm3 (4.20-5.40); Red Cell Distribution Width-SD 42.5 fL; White Blood Count 6.2 K/mm3 (4.8-10.8)
[2025-04-05 05:42] LABS: Microscopic, Urine URINE MICROSCOPIC (MICROSCOPIC)
[2025-04-05 05:46] LABS: Bilirubin,Urine Negative (Negative); Color,Urine YELLOW (Yellow); Glucose,Urine (UA) Negative (Negative); Ketones,Urine Negative (Negative); Leukocyte Esterase,Urine Negative (Negative); PH,Urine 7.5 (5.0-8.5); Protein,Urine 1+ (Negative); Specific Gravity, Urine 1.020 (1.005-1.030); Urobilinogen,Urine 1.0 EU/dl (0.2)
[2025-04-05 06:09] LABS: Bacteria,Urine Trace /lpf; WBC,Urine Occasional #/hpf (0-3)
[2025-04-05 06:11] LABS: Influenza A, PCR Detected (NotDetected)
[2025-04-05 09:00] LABS: Hepatitis C Ab Qual. W/ RFX NEGATIVE (Negative)
== END 2025-04-05 06:27 | disposition home or self-care (01) ==
PROVIDERS: Emergency Provider Emergency Medicine; PCP Internal Medicine Adolescent Medicine
DX: J10.1 Influenza due to other identified influenza virus with other respiratory manifestations (principal); R11.2 Nausea with vomiting, unspecified; R50.9 Fever, unspecified; R55 Syncope and collapse; R51.9 Headache, unspecified; E87.1 Hypo-osmolality and hyponatremia
CPT/HCPCS: 70450; 71045; 80053; 81001; 83605; 83690; 84484; 85025; 86803; 87389; 87631; 93005; 96361; 96374; 96375; 99285; J1885; J2405; J7120